=== PATIENT | male | born 1975 | race Caucasian/White ===

== ENCOUNTER 2021-03-30 05:48 | Emergency (ER) | payer MEDICAID, OTHER ==
[~2021-03-30] VITALS: Ht 185.4 cm; Wt 181.4 kg
[2021-03-30] MEDS ORDERED: ASPirin 81 mg TAB PO ONE (07:00)
[2021-03-30 07:40] LABS: Potassium 4.3 mmol/L (3.5-5.1)
[2021-03-30 07:55] LABS: Basophils # (auto) 0 10 ^3/uL (0-0.2); Basophils % (auto) 0.4 % (0.0-2.0); Eosinophils # (auto) 0 10 ^3/uL (0-0.8); Eosinophils % (auto) 0.5 % (0.0-7.0); Hematocrit 43.1 % (41.0-53.0); Hemoglobin 14.2 g/dL (13.5-17.5); Lymphocytes # (auto) 1.9 10 ^3/uL (0.4-5.4); Lymphocytes % (auto) 27.8 % (10.0-50.0); Mean Corpuscular Hemoglobin 29.5 pg (28.0-32.0); Mean Corpuscular Volume 89.3 fL (80.0-100.0); Monocytes # (auto) 0.5 10 ^3/uL (0-1.3); Monocytes % (auto) 7.6 % (0.0-12.0); Neutrophils # (auto) 4.3 10 ^3/uL (1.6-8.6); Neutrophils % (auto) 63.7 % (37.0-80.0); Nucleated Red Blood Cells % 0.1 %; Red Blood Cells 4.82 10^6/uL (4.5-5.90); Red Cell Distribution Width 13.9 % (11.8-14.3); White Blood Cell 6.7 10^3/uL (4.4-10.8)
[2021-03-30 07:56] LABS: Albumin 3.5 g/dL (3.4-5.0); BUN/Creatinine Ratio 23.8; Bilirubin, Total 0.6 mg/dL (0.2-1.0); Calcium 8.7 mg/dL (8.5-10.1); Total Protein 7.6 g/dL (6.4-8.2)
[2021-03-30 08:49] VITALS: BP 136/94
== END 2021-03-30 09:50 | disposition home or self-care (01) ==
LOC: EDBD 05:48 → ER 05:48
DX: R07.89 Other chest pain (principal); I10 Essential (primary) hypertension; E11.9 Type 2 diabetes mellitus without complications
CPT/HCPCS: 36415; 71045; 80053; 83880; 84484; 85025; 93005

== ENCOUNTER 2024-09-29 07:02 | Inpatient (IN) | payer MEDICAID ==
[~2024-09-29] VITALS: Ht 185.4 cm; Wt 150.1 kg
--- NOTE | 2024-09-29 07:18 | ED.PDOC ---
GI ASSESSMENT HPI Comments This is a 49 year old male MOSES presenting to the ED with chief complaint of abdominal pain. Patient reports that he has been experiencing diffuse abdominal pain with associated diarrhea for the past 2 months, worsening over the past 2 days. Patient relays that he has also not been able to ambulate well during these 2 days with an associated syncopal episode this morning, prompting him to call 911. Patient denies any N/V, fever, chills, dizziness, chest pain, or SOB. Time Seen by MD: 07:17 Reviewed Notes: Nurses Notes, Quality Review Trainer Notes, Medications, Allergies Allergies: Coded Allergies: NO KNOWN ALLERGIES (Unverified , 03/30/21) Information Source: Patient, Emergency Med Personnel Mode of Arrival: EMS Timing: Days Duration: Since onset Prehospital treatment: None Quality: Aching Vomitus: None Stool: Watery Severity: Moderate Recent: None Recent Hx of: None Pain Location: Diffuse Modifying Factors: Nothing Associated sign and symptoms: Diarrhea, Abdominal Pain Past Medical History PAST MEDICAL HISTORY: DM, HTN Surgical History: Denies all surgeries Family History Family History: Reviewed,noncontributory to illness Social History Smoker: Non-Smoker Alcohol: Denies ETOH Use Drugs: Denies Drug Use Lives In: Home Constitutional: denies: chills, diaphoresis, fatigue, fever, malaise, sweats, weakness, others EENTM: denies: blurred vision, double vision, ear bleeding, ear discharge, ear drainage, ear pain, ear ringing, eye pain, eye redness, hearing loss, mouth pain, mouth swelling, nasal discharge, nose bleeding, nose congestion, nose pain, photophobia, tearing, throat pain, throat swelling, voice changes, others Respiratory: denies: cough, hemoptysis, orthopnea, SOB at rest, shortness of breath, SOB with excertion, stridor, wheezing, others Cardiovascular: reports: syncope; denies: chest pain, dizzy spells, diaphor esis, Dyspnea on exertion, edema, irregular heart beat, left arm pain, lightheadedness, palpitations, PND, others Gastrointestinal: reports: abdominal pain, diarrhea; denies: abdomen distended, blood streaked bowels, constipated, dysphagia, difficulty swallowing, hematemesis, melena, nausea, poor appetite, poor fluid intake, rectal bleeding, rectal pain, vomiting, others Genitourinary: denies: burning, dysuria, flank pain, frequency, hematuria, incontinence, penile discharge, penile sore, pain, testicle pain, testicle swelling, urgency, others Neurological: denies: dizziness, fainting, headache, left sided numbness, left sided weakness, numbness, paresthesia, pre-existing deficit, right sided numbness, right sided weakness, seizure, speech problems, tingling, tremors, weakness, others Musculoskeletal: denies: back pain, gout, joint pain, joint swelling, muscle pain, muscle stiffness, neck pain, others Integumetry: denies: bruises, change in color, change in hair/nails, dryness, laceration, lesions, lumps, rash, wounds, others Allergic/Immunocompromised: denies: Difficulty Healing, Frequent Infections, Hives, Itching, others Hematologic/Lymphatic: denies: anemia, blood clots, easy bleeding, easy bruising, swollen glands, others Endocrine: denies: excessive hunger, excessive sweating, excessive thirst, excessive urination, flushing, intolerance to cold, intolerance to heat, unexplained weight gain, unexplained weight loss, others Psychiatric: denies: anxiety, bipolar disorder, depression, hopeless, panic disorder, schizophrenia, sleepless, suicidal, others All Other Systems: Reviewed and Negative Physical Exam General Appearance: Moderate Distress, Obese HEENT: Normal ENT Inspection, Pharynx Normal, TMs Normal Neck: Full Range of Motion, Non-Tender, Normal, Normal Inspection Respiratory: Chest Non-Tender, Lungs Clear, No Accessory Muscle Use, No Respiratory Distress, Normal Breath Sounds Cardiovascular: No Edema, No JVD, No Murmur, No Gallop, Normal Peripheral Pulses, Regular Rate/Rhythm Breast Exam: Deferred Gastrointestinal: No Organomegaly, Non Tender, No Pulsatile Mass, Normal Bowel Sounds, Soft Genitalia: Deferred Pelvic: Deferred Rectal: Deferred Extremities: No calf tenderness, Normal capillary refill, Normal range of motion, Non-tender, No pedal edema Musculoskeletal : Apperance: Normal Neurologic: Alert, escort vehicle driver II-XII nml as Tested, No Motor Deficits, Normal Affect, Normal Mood, No Sensory Deficits Cerebellar Function: Normal Reflexes: Normal Skin: Dry, Normal Color, Warm, Wounds (Bilateral lower extremity) Peripheral Pulses: 3+ Radial (R), 3+ Radial (L) Lymphatic: No Adenopathy Was a procedure done? Was a procedure done?: No GI differential Dx Differential Diagnosis: Constipation, Diverticular disease, Esophagitis, Gastritis/PUD, Gastroenteritis X-Ray, Labs, Meds, VS Vital Signs Date Time Temp Pulse Resp B/P (MAP) Pulse Ox O2 Delivery O2 Flow Rate FiO2 09/29/24 09:44 98 18 97 Room Air* 0 21 09/29/24 09:44 98.6 98 97 186/111 (136) 97 98.6 09/29/24 07:19 98.0 95 16 178/125 96 98.0 Lab Test 09/29/24 07:42 Range/Units White Blood Count 11.8 H 4.4-10.8 10^3/uL Red Blood Count 5.53 4.5-5.90 10^6/uL Hemoglobin 16.5 13.5-17.5 g/dL Hematocrit 48.6 41.0-53.0 % Mean Corpuscular Volume 87.9 80.0-100.0 fL Mean Corpuscular Hemoglobin 29.9 28.0-32.0 pg Mean Corpuscular Hemoglobin Concent 34.0 32.0-36.0 g/dL Red Cell Distribution Width 13.1 11.8-14.3 % Platelet Count 189 140-450 10^3/uL Mean Platelet Volume 10.3 6.9-10.8 fL Neutrophils (%) (Auto) 79.4 37.0-80.0 % Lymphocytes (%) (Auto) 14.8 10.0-50.0 % Monocytes (%) (Auto) 4.7 0.0-12.0 % Eosinophils (%) (Auto) 0.4 0.0-7.0 % Basophils (%) (Auto) 0.7 0.0-2.0 % Neutrophils # (Auto) 9.4 H 1.6-8.6 10 ^3/uL Lymphocytes # (Auto) 1.8 0.4-5.4 10 ^3/uL Monocytes # (Auto) 0.6 0-1.3 10 ^3/uL Eosinophils # (Auto) 0 0-0.8 10 ^3/uL Basophils # (Auto) 0.1 0-0.2 10 ^3/uL Nucleated Red Blood Cells 0.0 % Sodium Level 139 136-145 mmol/L Potassium Level 4.1 3.5-5.1 mmol/L Chloride Level 100 98-107 mmol/L Carbon Dioxide Level 29 20-31 mmol/L Anion Gap 10 5-15 Blood Urea Nitrogen 12 9-23 mg/dL Creatinine 0.79 0.700-1.30 mg/dL Glomerular Filtration Rate Calc 110 >90 mL/min BUN/Creatinine Ratio 15.2 10.0-20.0 Serum Glucose 159 H 74-106 mg/dL Calcium Level 9.9 8.7-10.4 mg/dL Current Medications Medications (Trade) Dose Ordered Sig/Gavin Route Start Time Stop Time Status Last Admin Sodium Chloride 1,000 ml @ 1,000 mls/hr Q1H ONCE IV 09/29/24 07:15 09/29/24 08:14 DC 09/29/24 09:35 Ketorolac Tromethamine (Toradol Injection) 30 mg ONCE ONCE IV 09/29/24 07:15 09/29/24 07:16 DC 09/29/24 09:37 Ondansetron HCl (Zofran) 4 mg ONCE ONCE IV 09/29/24 07:15 09/29/24 07:16 DC 09/29/24 09:37 Ceftriaxone Sodium 50 ml @ 100 mls/hr ONCE ONCE IV 09/29/24 08:30 09/29/24 08:59 DC 09/29/24 09:37 Patient alert. Morbidly obese. WBC slightly elevated. Vitals stable. Abdomen is soft nontender. Bilateral lower extremity redness. Hemoglobin within normal limits. Establish intravenous access. Was given fluids. He will be admitted for cellulitis. Was given Rocephin. Was given clindamycin. Explained to the patient. Continue to monitor. Blood pressure was high. Was given clonidine. Time of 1ST Reevaluation: 08:16 Reevaluation 1ST: Unchanged Patient Education/Counseling: Diagnosis, Treatment Family Education/Counseling: No Family Present SEPSIS Sepsis Screen Vital Signs Date Time Temp Pulse Resp B/P (MAP) Pulse Ox O2 Delivery O2 Flow Rate FiO2 09/29/24 09:44 98 18 97 Room Air* 0 21 09/29/24 09:44 98.6 98 97 186/111 (136) 97 98.6 09/29/24 07:19 98.0 95 16 178/125 96 98.0 Laboratory Tests Test 09/29/24 07:42 White Blood Count 11.8 10^3/uL (4.4-10.8) H Medications Medications Dose Ordered Sig/Gavin Route Start Time Stop Time Status Last Admin Dose Admin Ceftriaxone Sodium 50 ml @ 100 mls/hr ONCE ONCE IV 09/29/24 08:30 09/29/24 08:59 DC 09/29/24 09:37 Ketorolac Tromethamine 30 mg ONCE ONCE IV 09/29/24 07:15 09/29/24 07:16 DC 09/29/24 09:37 Ondansetron HCl 4 mg ONCE ONCE IV 09/29/24 07:15 09/29/24 07:16 DC 09/29/24 09:37 Sodium Chloride 1,000 ml @ 1,000 mls/hr Q1H ONCE IV 09/29/24 07:15 09/29/24 08:14 DC 09/29/24 09:35 Departure 1 Departure Time of Disposition: 07:57 Impression: Primary Impression: Cellulitis Qualified Codes: L03.119 - Cellulitis of unspecified part of limb Additional Impressions: Hypertensive urgency Uncontrolled diabetes mellitus Qualified Codes: E13.65 - Other specified diabetes mellitus with hyperglycemia Disposition: ADMITTED INPATIENT Admit to: Med Surg Condition: Guarded Critical Care Note Critical Care Time?: No Stability Stability form required: No Heart Score Heart Score: Heart Score Response (Comments) Value History N/A 0 EKG N/A 0 Age N/A 0 Risk Factors N/A 0 Troponin N/A 0 Total 0 I personally scribed for URIEL MOURA MD ([email or web address]) on 09/29/24 at 07:18. Electronically submitted by Kaushal Roche ([email or web address]). URIEL MOURA MD Sep 29, 2024 07:18
[2024-09-29 07:54] LABS: Hematocrit 48.6 % (41.0-53.0); Hemoglobin 16.5 g/dL (13.5-17.5); Mean Corpuscular Hemoglobin 29.9 pg (28.0-32.0); Mean Corpuscular Volume 87.9 fL (80.0-100.0); Nucleated Red Blood Cells % 0.0 %
[2024-09-29 08:03] LABS: Carbon Dioxide 29 mmol/L (20-31)
[2024-09-29 08:04] LABS: Calcium 9.9 mg/dL (8.7-10.4)
[2024-09-29 08:08] LABS: BUN/Creatinine Ratio 15.2 (10.0-20.0); Blood Urea Nitrogen 12 mg/dL (9-23)
[2024-09-29 08:09] LABS: Anion Gap 10 (5-15); Chloride 100 mmol/L (98-107); Potassium 4.1 mmol/L (3.5-5.1); Sodium 139 mmol/L (136-145)
[2024-09-29 08:11] LABS: Glucose 159 mg/dL (74-106)
[2024-09-29] MEDS: SODIUM CHLORIDE 0.9% 1,000 ML IV ONE (09:35)
[2024-09-29] MEDS: ONDANSETRON HCL 4 MG/2 ML VIAL IV ONE (09:37)
[2024-09-29] MEDS: KETOROLAC TROMETH 30 MG/ML 1ML VIAL IV ONE (09:37)
[2024-09-29] MEDS: cefTRIAXone 1GM/50ML D5W 50 ML IV ONE (09:37)
[2024-09-29 09:44] VITALS: PULSE 98; RESP 18; O2SAT 97
[2024-09-29] MEDS: CLINDAMYCIN 600MG IV 50 ML IV ONE (11:14)
[2024-09-29] MEDS ORDERED: HYDROcodone-ACET 5/325MG TAB PO PRN (11:45)
[2024-09-29] MEDS ORDERED: NITROGLYCERIN 0.4 MG SL TAB SL PRN ×2 (11:45→14:45)
[2024-09-29] MEDS ORDERED: DOCUSATE SOD 100 MG CAP PO PRN ×2 (11:45→14:45)
[2024-09-29] MEDS ORDERED: ACETAMINOPHEN 325 MG TAB PO PRN ×2 (11:45→14:45)
[2024-09-29] MEDS ORDERED: DEXTROSE (50%) 50ML SYRG IV PRN ×2 (11:45→14:45)
[2024-09-29] MEDS ORDERED: ONDANSETRON HCL 4 MG/2 ML VIAL IV PRN (11:45)
[2024-09-29] MEDS ORDERED: MORPHINE SULFATE INJ 2 MG/ml SYRG IV PRN (11:45)
[2024-09-29] MEDS ORDERED: LISINOPRIL 5 MG TAB PO ONE (12:30)
--- NOTE | 2024-09-29 12:38 | DVHHP2 ---
History of Present Illness Reason for Visit: syncopal event History of Present Illness Stefano Crystal is a 49-year-old male with past medical history of hypertension and diabetes who is currently not taking any home medications, who came to the hospital with multiple complaints. He states had a fall a few months back, and sense then his health has been declining. He states he is losing the use of his hands, and states he has no strength in his hands. That he has had nausea for 2 weeks, and diarrhea for 1-2 months that is making him weak and caused the syncopal event he had this morning. Cardiovascular: HTN Endocrine: Diabetes Past Surgical History: None Smoke: No ALCOHOL: none Drugs: Marijuana Lives: with Family Domestic Violence: Neg Review of Systems Constitutional: No: Fever, Chills, Sweats, Weakness, Malaise, Other Eyes: No: Pain, Vision change, Conjunctivae inflammation, Eyelid inflammation, Other, Redness ENT: No: Ear pain, Ear discharge, Nose pain, Nose discharge, Nose congestion, Mouth pain, Mouth swelling, Throat pain, Throat swelling, Other Respiratory: No: Cough, Dry, Shortness of breath, SOB with excertion, Wheezing, Hemoptysis, Pleuritic Pain, Sputum, Wheezing, Other Cardiovascular: Edema (right leg); No: Chest Pain, Palpitations, Orthopnea, Paroxysmal Noc. Dyspnea, Lt Headedness, Other Gastrointestinal: Diarrhea; No: Nausea, Vomiting, Abdominal Pain, Constipation, Melena, Hematochezia, Other Genitourinary: No Dysuria, No Frequency, No Incontinence, No Hematuria, No Retention, No Other Musculoskeletal: No: other, neck pain, shoulder pain, arm pain, back pain, hand pain, leg pain, foot pain Skin: Lesions (open wound to bottom of right foot, cellulitis of right leg); No: Rash, Jaundice, Bruising, Other Neurological: Other (syncopal event ); No: Weakness, Numbness, Incoordination, Change in speech, Confusion, Seizures Allergies: Coded Allergies: NO KNOWN ALLERGIES (Unverified , 03/30/21) Exam Vital Signs Vital Signs Date Time Temp Pulse Resp B/P (MAP) Pulse Ox O2 Delivery O2 Flow Rate FiO2 09/29/24 09:51 186/111 09/29/24 09:44 98 18 97 Room Air* 0 21 09/29/24 09:44 98.6 98.6 General Appearance: Alert, Oriented X3, Cooperative, mild distress HEENT: Atraumatic, PERRLA, Mucous membr. moist/pink Respiratory: Clear to auscultation, Normal air movement Cardiovascular: Regular rate, Normal S1, Normal S2 Abdominal: Normal bowel sounds, Soft, Other (diarrhea) Extremities: No clubbing, No cyanosis, No edema Skin: No significant lesion (open wound to bottom of right foot, cellulitis of right leg) Neuro: Normal speech Psych/Mental Status: Mental status NL, Mood NL Labs/Xrays Labs Test 09/29/24 07:42 Range/Units White Blood Count 11.8 H 4.4-10.8 10^3/uL Red Blood Count 5.53 4.5-5.90 10^6/uL Hemoglobin 16.5 13.5-17.5 g/dL Hematocrit 48.6 41.0-53.0 % Mean Corpuscular Volume 87.9 80.0-100.0 fL Mean Corpuscular Hemoglobin 29.9 28.0-32.0 pg Mean Corpuscular Hemoglobin Concent 34.0 32.0-36.0 g/dL Red Cell Distribution Width 13.1 11.8-14.3 % Platelet Count 189 140-450 10^3/uL Mean Platelet Volume 10.3 6.9-10.8 fL Neutrophils (%) (Auto) 79.4 37.0-80.0 % Lymphocytes (%) (Auto) 14.8 10.0-50.0 % Monocytes (%) (Auto) 4.7 0.0-12.0 % Eosinophils (%) (Auto) 0.4 0.0-7.0 % Basophils (%) (Auto) 0.7 0.0-2.0 % Neutrophils # (Auto) 9.4 H 1.6-8.6 10 ^3/uL Lymphocytes # (Auto) 1.8 0.4-5.4 10 ^3/uL Monocytes # (Auto) 0.6 0-1.3 10 ^3/uL Eosinophils # (Auto) 0 0-0.8 10 ^3/uL Basophils # (Auto) 0.1 0-0.2 10 ^3/uL Nucleated Red Blood Cells 0.0 % Sodium Level 139 136-145 mmol/L Potassium Level 4.1 3.5-5.1 mmol/L Chloride Level 100 98-107 mmol/L Carbon Dioxide Level 29 20-31 mmol/L Anion Gap 10 5-15 Blood Urea Nitrogen 12 9-23 mg/dL Creatinine 0.79 0.700-1.30 mg/dL Glomerular Filtration Rate Calc 110 >90 mL/min BUN/Creatinine Ratio 15.2 10.0-20.0 Serum Glucose 159 H 74-106 mg/dL Calcium Level 9.9 8.7-10.4 mg/dL Carotid Duplex RIGHT SIDE: The peak systolic velocities are 74 cm/s in the CCA, 57 cm/s in the ICA. The ICA/CCA ratio is 0.8. The external carotid artery is patent with peak systolic velocity of 66 cm/s proximally. There is appropriate antegrade flow in the right vertebral artery. LEFT SIDE: The peak systolic velocities are 96 cm/s in the CCA, 78 cm/s in the ICA. The ICA/CCA ratio is 0.8. The external carotid artery is patent with peak systolic velocity of 79 cm/s proximally. There is appropriate antegrade flow in the left vertebral artery. IMPRESSION: No hemodynamically significant stenosis noted in the right carotid system. No hemodynamically significant stenosis noted in the left carotid system. EXAM: CT HEAD WITHOUT CONTRAST FINDINGS: There is no evidence of acute intracranial hemorrhage, extra-axial collection, mass effect, midline shift, herniation or hydrocephalus. The ventricles, sulci and cisterns are age appropriate. The ferrera-white differentiation is intact. The visualized paranasal sinuses and mastoid air cells are clear. No depressed calvarial fracture. The surrounding soft tissues are unremarkable. IMPRESSION: 1. No evidence of acute intracranial abnormality. SEPSIS Sepsis Screen Date sepsis recognized/suspect: Sep 29, 2024 Time Sepsis recognized/suspect: 939 Recent Procedure: No On Antibiotic Therapy: No Respiratory Rate >20: No Heart Rate >90: No Temp<36 C (96.8 F) or >38.3 C: No SBP <90 or MAP <65 mmHG: No New Acute Mental Status Change: No Is the patient on CPAP, BIPAP,: No Physician Orders Admit (09/29/24 11:40) Code Status (09/29/24 11:40) 2 Gm Sodium Diet (09/29/24 Lunch) Hydrocodone-Acet 5/325mg Tab ([place] (09/29/24 11:45) Ondansetron Hcl (Zofran) (09/29/24 11:45) Docusate Sodium Capsule (Colace Capsule) (09/29/24 11:45) Complete Blood Count (09/30/24 04:00) Comprehensive Metabolic Panel (09/30/24 04:00) Echo 2d Mode Cardiac Dop (09/29/24 11:40) Carotid Duplx W Color Dop (09/29/24 11:40) Condition: Serious (09/29/24 11:40) Acetaminophen Tablet (Tylenol Tablet) (09/29/24 11:45) Nitroglycerin Sublingual (Ntrostat Subli (09/29/24 11:45) Morphine Sulfate Injection (09/29/24 11:45) Stat Ekg For Chest Pain (09/29/24 11:40) Notify Md Of Changes From Base (09/29/24 11:40) Mixer And Scaler For 24 Hours (09/29/24 11:40) Emergency Dysrhythmia Protocol (09/29/24 11:40) Rhythm Strips Once Every Shift (09/29/24 11:40) Oxygen By Nasal Cannula (09/29/24 11:40) Glucose Blood (Accu-Chek Comfort Curve T (09/29/24 17:00) Bedtime Insulin Scale (09/29/24 22:00) Moderate Insulin Ss (09/29/24 17:00) Dextrose 50% Syringe (09/29/24 11:45) Vital Signs Date Time Temp Pulse Resp B/P (MAP) Pulse Ox O2 Delivery O2 Flow Rate FiO2 09/29/24 09:51 186/111 09/29/24 09:44 98 18 97 Room Air* 0 21 09/29/24 09:44 98.6 98 97 186/111 (136) 97 98.6 09/29/24 07:19 98.0 95 16 178/125 96 98.0 Laboratory Tests Test 09/29/24 07:42 White Blood Count 11.8 10^3/uL (4.4-10.8) H Medications Medications Dose Ordered Sig/Gavin Route Start Time Stop Time Status Last Admin Dose Admin Ceftriaxone Sodium 50 ml @ 100 mls/hr ONCE ONCE IV 09/29/24 08:30 09/29/24 08:59 DC 09/29/24 09:37 100 MLS/HR Clindamycin Phosphate 50 ml @ 50 mls/hr ONCE ONCE IV 09/29/24 08:30 09/29/24 09:29 DC 09/29/24 11:14 50 MLS/HR Clonidine HCl 0.2 mg ONCE ONCE PO 09/29/24 09:45 09/29/24 09:46 DC 09/29/24 09:51 0.2 MG Ketorolac Tromethamine 30 mg ONCE ONCE IV 09/29/24 07:15 09/29/24 07:16 DC 09/29/24 09:37 30 MG Ondansetron HCl 4 mg ONCE ONCE IV 09/29/24 07:15 09/29/24 07:16 DC 09/29/24 09:37 4 MG Sodium Chloride 1,000 ml @ 1,000 mls/hr Q1H ONCE IV 09/29/24 07:15 09/29/24 08:14 DC 09/29/24 09:35 1,000 MLS/HR Assessment/Plan Assessment/Plan Assessment: Cellulitis of right leg, Syncopal event, Open wound to right foot, Leukocytosis, Diabetes, Hypertension, Plan: Admit to Tele, IV antibiotics, Wound consult, Wound culture, ECHO, Carotid Doppler, CT head, Neurology consult, Consider cardiology consult, Accu checks Q AC&HS with sliding scale, Plan discussed with: Patient 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 Procedure Category Date Status Time Admit ADMIT 09/29/24 Verified 11:40 Code Status CODE 09/29/24 Verified 11:40 2 Gm Sodium Diet DIET 09/29/24 Verified Lunch Hydrocodone-Acet PHA 09/29/24 Verified 5/325mg Tab ([place] 11:45 Ondansetron Hcl PHA 09/29/24 Verified (Zofran) 11:45 Docusate Sodium PHA 09/29/24 Verified Capsule (Colace 11:45 Complete Blood Count LAB 09/30/24 Verified 04:00 Comprehensive LAB 09/30/24 Verified Metabolic Panel 04:00 Echo 2d Mode Cardiac US 09/29/24 Verified DOP 11:40 Carotid Duplx W Color US 09/29/24 Verified DOP 11:40 Condition: Serious PIO 09/29/24 Verified 11:40 Acetaminophen Tablet PHA 09/29/24 Verified (Tylenol Tablet) 11:45 Nitroglycerin PHA 09/29/24 Verified Sublingual (Ntrostat 11:45 Morphine Sulfate [facility] 09/29/24 Verified Injection 11:45 Stat Ekg For Chest [facility] 09/29/24 Verified Pain 11:40 Notify Md Of Changes [facility] 09/29/24 Verified From Base 11:40 Mixer And Scaler For [facility] 09/29/24 Verified 24 Hours 11:40 Emergency Dysrhythmia [facility] 09/29/24 Verified Protocol 11:40 Rhythm Strips Once [facility] 09/29/24 Verified Every Shift 11:40 Oxygen By Nasal 09/29/24 Verified Cannula 11:40 Glucose Blood [facility] 09/29/24 Verified (Accu-Chek Comfort 17:00 Bedtime Insulin Scale [facility] 09/29/24 Verified 22:00 Moderate Insulin Ss [facility] 09/29/24 Verified 17:00 Dextrose 50% Syringe [facility] 09/29/24 Verified 11:45 Date of Service: Sep 29, 2024 Billing Provider: ARAM GABRIEL Common Visit Codes: [id number] INP/OBS CARE (MOD) ARAM GABRIEL Sep 29, 2024 12:38
--- NOTE | 2024-09-29 12:59 | DVH ---
EXAM: CT HEAD WITHOUT CONTRAST INDICATION: syncopal event TECHNIQUE: CT of the head without intravenous contrast. Coronal and sagittal reformatted images are s ubmitted. Radiation Dose : 1. Head: CT Dose: CTDI volume is 64.81 mGy. Dose-length product is 1.71 mGy*cm The dose indicators for CT are the volume Computed Tomography (CT) Dose Index (CTDIvol) and the Dose Length Product (DLP), and are measured in units of mGy and mGy-cm, respectively. These indicators are not patient dose, but values generated from the CT scanner acquisition factors. The report includes radiation exposure data for exposures received during this examination. All CT scans at this medical facility are performed using dose modulation techniques as appropriate to a performed exam including the following: Automated exposure control was utilized; adjustment of the MA and/or KV according to patient size; and use of iterative reconstruction technique. COMPARISON: None FINDINGS: There is no evidence of acute intracranial hemorrhage, extra-axial collection, mass effect, midline s hift, herniation or hydrocephalus. The ventricles, sulci and cisterns are age appropriate. The ferrera-white differentiation is intact. The visualized paranasal sinuses and mastoid air cells are clear. No depressed calvarial fracture. The surrounding soft tissues are unremarkable. IMPRESSION: 1. No evidence of acute intracranial abnormality.
--- NOTE | 2024-09-29 13:13 | DVH ---
Carotid Duplex Clinical History: syncopal event Comparison: None Technique: Duplex Doppler evaluation of the extracranial carotid and vertebral arteries including color Doppler and spectral/pulsed waveform analysis was performed. Findings: RIGHT SIDE: The peak systolic velocities are 74 cm/s in the CCA, 57 cm/s in the ICA. The ICA/CCA ratio is 0.8. The external carotid artery is patent with peak systolic velocity of 66 cm/s proximally. There is appropriate antegrade flow in the right vertebral artery. LEFT SIDE: The peak systolic velocities are 96 cm/s in the CCA, 78 cm/s in the ICA. The ICA/CCA ratio is 0.8. The external carotid artery is patent with peak systolic velocity of 79 cm/s proximally. There is appropriate antegrade flow in the left vertebral artery. IMPRESSION: No hemodynamically significant stenosis noted in the right carotid system. No hemodynamically significant stenosis noted in the left carotid system. Reference: Radiology 2003; 229:[id number] Normal ICA PSV is <125 cm/sec and no plaque or intimal thickening is visible sonographically addition al criteria include ICA/CCA PSV ratio <2.0 and ICA EDV <40 cm/sec <50% ICA stenosis ICA PSV is <125 cm/sec and plaque or intimal thickening is visible sonographically additional criteria include ICA/CCA PSV ratio <2.0 and ICA EDV <40 cm/sec 50-69% ICA stenosis ICA PSV is 125-230 cm/sec and plaque is visible sonographically additional criter ia include ICA/CCA PSV ratio of 2.0-4.0 and ICA EDV of 40-100 cm/sec 70% ICA stenosis but less than near occlusion ICA PSV is >230 cm/sec and visible plaque and luminal narrowing are seen at ferrera-scale and color Doppler ultrasound (the higher the Doppler parameters lie above the threshold of 230 cm/sec, the greater the likelihood of severe disease) additional criteria include ICA/CCA PSV ratio >4 and ICA EDV >100 cm/sec
[2024-09-29] MEDS: LISINOPRIL 5 MG TAB PO ONE (13:55)
[2024-09-29] MEDS ORDERED: CLINDAMYCIN 600MG IV 50 ML IV SCH (14:00)
[2024-09-29] MEDS: CLINDAMYCIN 600MG IV 50 ML IV SCH (14:15)
[2024-09-29] MEDS: ONDANSETRON HCL 4 MG/2 ML VIAL IV PRN (14:41)
[2024-09-29] MEDS: HYDROcodone-ACET 5/325MG TAB PO PRN (14:42)
[2024-09-29] MEDS ORDERED: InsuLIN REG 1unit/0.01ml Soln (100units/ml) SC SCH ×2 (17:00→22:00)
[2024-09-29] MEDS: ACCU-CHEK COMFORT CURVE STRIP VI SCH (17:00)
[2024-09-29] MEDS ORDERED: ACCU-CHEK COMFORT CURVE STRIP VI SCH (17:00)
[2024-09-29 17:52] VITALS: BP 128/83; PULSE 86; O2SAT 95
[2024-09-29] MEDS: InsuLIN REG 1unit/0.01ml Soln (100units/ml) SC SCH ×2 (18:02→22:00)
[2024-09-29 19:00] VITALS: BP 179/106; RESP 19
[2024-09-29] MEDS: LOPERAMIDE 1 mg/7.5ml ORAL soln PO PRN (23:46)
[2024-09-29 23:50] VITALS: BP 148/108; PULSE 101; RESP 18; TEMP 97.6; O2SAT 95
[2024-09-29] MEDS ORDERED: GABA-1250 PO (23:53)
[2024-09-30] VITALS (7 sets, daily range): BP systolic 127–159; BP diastolic 89–108; PULSE 85–102; RESP 18–20; TEMP 97.6–98.4; O2SAT 91–95
[2024-09-30 07:54] LABS: Hematocrit 44.4 % (41.0-53.0); Hemoglobin 15.5 g/dL (13.5-17.5); Mean Corpuscular Hemoglobin 30.7 pg (28.0-32.0); Mean Corpuscular Volume 88.2 fL (80.0-100.0); Nucleated Red Blood Cells % 0.1 %
[2024-09-30 08:04] LABS: Alanine Aminotransferase 29 U/L (7-40); Alkaline Phosphatase 76 U/L (46-116); Anion Gap 11 (5-15); BUN/Creatinine Ratio 21.7 (10.0-20.0); Blood Urea Nitrogen 15 mg/dL (9-23); Carbon Dioxide 26 mmol/L (20-31); Chloride 103 mmol/L (98-107); Potassium 3.7 mmol/L (3.5-5.1); Sodium 140 mmol/L (136-145); Total Protein 6.6 g/dL (5.7-8.2)
[2024-09-30 08:05] LABS: Albumin 4.1 g/dL (3.2-4.8); Bilirubin, Total 0.9 mg/dL (0.2-1.0)
[2024-09-30 08:06] LABS: Calcium 8.7 mg/dL (8.7-10.4); Glucose 138 mg/dL (74-106)
[2024-09-30] MEDS ORDERED: cefTRIAXone 1GM/50ML D5W 50 ML IV SCH (09:00)
[2024-09-30] MEDS: cefTRIAXone 1GM/50ML D5W 50 ML IV SCH (09:18)
[2024-09-30] MEDS: LISINOPRIL 5 MG TAB PO SCH (09:20)
[2024-09-30] MEDS ORDERED: LISINOPRIL 5 MG TAB PO SCH (10:00)
--- NOTE | 2024-09-30 11:14 | DVH ---
Right lower extremity venous duplex Clinical History: R/o DVT; edema Comparison: None Findings: Duplex Doppler evaluation of the deep venous system of the right lower extremity from the common femo ral vein to the popliteal vein including color Doppler and spectral/pulsed waveform analysis was perf ormed. The common femoral vein demonstrates appropriate compressibility and waveform variability. There is compressibility/patency of the great saphenous vein at the proximal thigh. The femoral vein demonstrates appropriate compressibility and waveform variability. The deep femoral vein demonstrates appropriate compressibility and waveform variability. The popliteal vein demonstrates appropriate compressibility and waveform variability. There is normal compressibility at the tibioperoneal trunk. 7 cm right Calle's cyst. Impression: No right femoropopliteal venous thrombosis. If clinical concern/symptoms persist or worsen, short-interval follow-up study is suggested.
[2024-09-30] MEDS ORDERED: VANCOMYCIN PER PHARMACY 0 MG IV SCH (11:30)
--- NOTE | 2024-09-30 11:36 | DVHSR ---
APPROVED REPORT EXAM: Two-dimensional and M-mode echocardiogram with Doppler and color Doppler. Blood Pressure: 186/111 mmHg INDICATION Syncope RISK FACTORS Obesity: Height: 6'2", Weight: 400 DIMENSIONS LVDd4.6 (3.8-5.7cm)LA (2D)4.6 (1.9-4.0cm)Aortic Root3.9 (2.0-3.7cm) LVDs3.1 (2.5-4.0cm)LA (MM) (1.9-4.0cm)Aortic Cusp Exc2.1 (1.5-2.0cm) EF (%) 60.0 (55-70%)Rt. Atrium4.7 (1.9-4.0cm)Asc. Aorta cm IVSd1.1 (0.7-1.1cm)RV (D) (1.8-2.4cm) PWd1.2 (0.7-1.1cm) Mitral Valve MitralMitral Stenosis E wave0.76m/sMV Mean GR.mmHg A wave1.19m/sMV Peak GR.mmHg E/A ratio0.62D MVAcm2 DECEL [id number] 1/2 Timems Aortic Valve Aortic ValveAortic Stenosis V11.05m/Amanuel Mean GR.3mmHg V21.10m/Amanuel Peak GR.5mmHg LVOT Diameter2.2 (1.8-2.4cm)Doppler AVA3.63cm2 Other Information Technically limited study due to body habitus. Conclusion limited study lvef 55% RV not well seen no severe valve abnormalities noted left atrium enlarged
[2024-09-30] MEDS: VANCOMYCIN 1GM/200ML PM 250 ML IV SCH (12:47)
[2024-09-30] MEDS: MORPHINE SULFATE INJ 2 MG/ml SYRG IV PRN (12:49)
--- NOTE | 2024-09-30 14:44 | DVHPNRES ---
Progress Note Date Seen: Sep 30, 2024 Resident Creating Document: NATE MARTI RESIDENT Medical Necessity Reason Pt with a Central, PICC or Fol: No Medical Necessity Reason Patient is a 49-year-old male with prior medical history of hypertension and diabetes, for which he is nonadherent to medication, who presented to the ED with chief complaint of loss of consciousness. he states that upon standing up from bed his vision became blurry, he felt palpitations, and he fell back onto his bed hitting his head against the wall. he believes he was unconscious for about 1-2 minutes, before his on found him and called EMS. Evaluation in the ED, patient was in moderate distress and hypertensive with blood pressure of 186/111. On exam there was found to be or any redness, we suggestive of cellulitis. Initial labs show WBC 11.8, serum glucose 159, rest of WBCs and chemical panel within normal range. Head CT shows no evidence of acute intracranial abnormality. Carotid Doppler study hemodynamically significant stenosis in right or left carotid systems. Patient was given clonidine for elevated blood pressure, started on antibiotics, and was admitted for further workup and monitoring. Surgical: Denies Social: Refers daily marijuana use, denies alcohol and tobacco use, states he lives with family and feels safe Patient seen at bedside. Patient states he feels well, had no adverse events overnight. Currently refers some pain in right calf, refers redness has been present for a few months. Complains of small wound on plantar surface of right foot near the first toe, which has been present for about 2 months. Additionally refers weakness in bilateral hands and decreased sensation in both feet, which has been present for the last 6 months. Patient has been consistently hypertensive, vitals have been within normal range. Follow-up CBC is within normal range. Antibiotics have been adjusted. Due to persistence of plantar wound, right lower extremity venous duplex has been ordered and foot x- ray has been ordered to rule out possible osteomyelitis. currently pending echo. Review of Systems: Constitutional: Refers decreased appetite Denies weight loss, fever and chills. HEENT: Denies changes in vision and hearing. Respiratory: Denies shortness of breath and cough Cardiovascular: Denies chest discomfort or palpitations GI: Refers occasional constipation and diarrhea Denies abdominal distention, abdominal pain : Denies dysuria and urinary frequency. Musculoskeletal: Refers lower right leg pain Skin: Refers presence of right red rash in right calf, refers small wound on plantar surface of right foot Neurological: Refers weakness in bilateral hands, refers decreased sensation in both feet, denies dizziness headache vision or hearing problems . Objective vital signs Vital Sign Date Time Temp Pulse Resp B/P (MAP) Pulse Ox O2 Delivery O2 Flow Rate FiO2 09/30/24 12:49 88 18 159/102 09/30/24 09:00 97.9 94 97.9 09/30/24 08:00 Room Air* 0 21 Total Intake and Output 09/29/24 09/29/24 09/30/24 15:00 23:00 07:00 Intake Total 50 ml 280 ml Output Total 400 ml Balance 50 ml -120 ml medications Current Medications Medications Dose Ordered Sig/Gavin Route Start Time Stop Time Status Last Admin Dose Admin Lisinopril 10 mg DAILY PO 09/30/24 10:00 Cancel Lisinopril 10 mg DAILY PO 09/30/24 10:00 09/30/24 09:20 10 MG Acetaminophen/ Hydrocodone Bitart 1 tab Q4HP PRN PO 09/29/24 14:45 09/30/24 09:20 1 TAB Ondansetron HCl 4 mg Q4HP PRN IV 09/29/24 14:45 09/29/24 14:41 4 MG Docusate Sodium 100 mg BIDPRN PRN PO 09/29/24 14:45 Acetaminophen 650 mg Q6HP PRN PO 09/29/24 14:45 Morphine Sulfate 2 mg Q30M PRN IV 09/29/24 14:45 Diagnostic Test (Pha) 1 strip ACHS 09/29/24 17:00 09/30/24 11:23 1 STRIP Insulin Human Regular HS SC 09/29/24 22:00 Insulin Human Regular AC SC 09/29/24 17:00 09/30/24 06:39 2 UNITS Dextrose 50 ml UD PRN IV 09/29/24 14:45 Loperamide HCl 2 mg PRN PRN PO 09/29/24 16:30 09/29/24 23:46 2 MG Morphine Sulfate 2 mg Q6HPRN PRN IV 09/30/24 09:45 09/30/24 12:49 2 MG Vancomycin HCl 0 ml @ 0 mls/hr UD IV 09/30/24 11:30 Nifedipine 30 mg DAILY PO 09/30/24 14:45 UNV Examination General: Patient is comfortable, alert and oriented in person place and time. Patient following commands HEENT: Normocephalic, atraumatic, normal reactive pupils, pink conjunctiva, pink moist mucous membrane Respiratory/pulmonary: Bilateral chest expansion, Clear lungs bilaterally, vesicular murmurs present in almost all lung lares, no associated crackles or wheezes Cardiovascular: Normal RRR, normal S1 and S2 Abdomen: Obese, Abdomen nondistended, normal bowel movements, soft, no pain to palpation in any of the abdominal quadrants, no palpable masses. Extremities: Presence of erythematous rash in inner surface of right calf, warm and painful to palpation, presence of small circular ulcer on plantar surface of right foot near first toe covered by black eschar, there is no peripheral edema present at the lower extremities, normal pulse on L lower extremity, R dorsalis pedis pulse palpable. Peripheral pulses 3+ radial right, 3+ radials soft. 3+ dorsalis pedis right. 3+ dorsalis pedis left Skin: No rashes or pruritus, Neurological: Intact cranial nerves with no focal neurologic deficits, decreased sensation in bilateral feet laboratory and microbiology Laboratory Tests 09/30/24 07:03 Test 09/30/24 07:03 Range/Units Serum Glucose 138 H 74-106 mg/dL Problem List/Assessment/Plan Problem List/Assessment/Plan Assessment and plan: Cellulitis of right calf - Ceftriaxone 1 g IV daily - Vancomycin per pharmacy protocol - Morphine sulfate 2 mg IV q.6 PRN - Acetaminophen 650 mg p.o. q.6 PRN - [place] 5 mg Q 4 p.o. p.r.n. Possible diabetic right foot ulcer, rule out osteomyelitis -Pending foot Xray Type 2 diabetes mellitus with hyperglycemia, HbA1c 6.5% - SSI -Accu-cheks -Carbohydrate consistent diet Syncope, possible to autonomic dysfunction secondary to above -Orthostatic vitals Hypertension urgency -Clonidine 0.1 mg once Hypertension -Lisinopril 10 mg PO daily -Nifedipine 30 mg PO daily DVT ruled out - Right venous duplex US: No right femoral popliteal venous thrombosis. Morbid obesity, BMI 45.0 kg/m2 Marijuana use -Counseled patient on cessation of marijuana use for over 15 minutes. DVT prophylaxis: Not indicated, CRISTI score [address] Molina. Goals of care discussed with the patient for over 30 minutes, states he understands and agrees. FULL CODE. Plan discussed with: Patient My Orders My Orders Orders - NATE MARTI RESIDENT Procedure Category Date Status Time Morphine Sulfate PHA 09/30/24 In Process Injection 09:45 Drug Screen LAB 09/30/24 Logged 09:36 Rt Lower Dvt US 09/30/24 Resulted 09:39 R Foot 2 View Xray XY 09/30/24 Logged 12:22 Orthostatic Vital ORDERS 09/30/24 Transmitted Signs 12:22 Complete Blood Count LAB 10/01/24 Verified 04:00 Basic Metabolic Panel LAB 10/01/24 Verified 04:00 Nifedipine Er PHA 09/30/24 Logged (Procardia Xl 14:45 Date of Service: Sep 30, 2024 Billing Provider: EMILIANO MOLINA MD Common Visit Codes: [id number] INP/OBS CARE(HIGH) Secondary Visit Codes: [id number] CARE PLAN 30 MINUTES NATE MARTI RESIDENT Sep 30, 2024 14:44 EMILIANO MOLINA MD Oct 05, 2024 21:19
--- NOTE | 2024-09-30 15:17 | DVH ---
CLINICAL INDICATION:pain; R/o osteomyelitis TECHNIQUE: 2 radiographic views of the right feet were obtained. Comparison: None FINDINGS/IMPRESSION: There is no evidence of acute fracture or dislocation. Small plantar calcaneal enthesophyte The visualized joint space is well maintained. The alignment is anatomical. There is no radiopaque foreign body.
[2024-09-30] MEDS: LISINOPRIL 5 MG TAB PO ONE (19:31)
[2024-10-01] VITALS (7 sets, daily range): BP systolic 111–152; BP diastolic 72–97; PULSE 91–116; RESP 18–21; TEMP 97.5–98.6; O2SAT 92–94
[2024-10-01] MEDS: VANCOMYCIN 1.5GM/300ML 300 ML IV SCH (00:47)
[2024-10-01 07:34] LABS: Hematocrit 47.2 % (41.0-53.0); Hemoglobin 15.9 g/dL (13.5-17.5); Mean Corpuscular Hemoglobin 30.1 pg (28.0-32.0); Mean Corpuscular Volume 89.5 fL (80.0-100.0); Nucleated Red Blood Cells % 0.1 %
[2024-10-01 07:46] LABS: Anion Gap 14 (5-15); Carbon Dioxide 23 mmol/L (20-31); Chloride 101 mmol/L (98-107); Sodium 138 mmol/L (136-145)
[2024-10-01 07:52] LABS: BUN/Creatinine Ratio 19.1 (10.0-20.0); Blood Urea Nitrogen 13 mg/dL (9-23)
[2024-10-01 07:59] LABS: Calcium 8.6 mg/dL (8.7-10.4); Glucose 116 mg/dL (74-106); Potassium 3.4 mmol/L (3.5-5.1)
[2024-10-01] MEDS: POTASSIUM CHL 20 Meq TABLET PO ONE (09:24)
[2024-10-01] MEDS: LISINOPRIL 20 MG TAB PO SCH (09:33)
[2024-10-01] MEDS ORDERED: CLIN1CAP70 PO (12:06)
[2024-10-01] MEDS ORDERED: NIFE90TA75 PO (12:06)
[2024-10-01] MEDS ORDERED: DOXY-346 PO (12:08)
[2024-10-01] MEDS: VANCOMYCIN 1.5GM/250ML 250 ML IV SCH (13:00)
[2024-10-01] MEDS: MORPHINE SULFATE INJ 2 MG/ml SYRG IV PRN (13:38)
--- NOTE | 2024-10-01 18:36 | DVHPNRES ---
Progress Note Date Seen: Oct 01, 2024 Resident Creating Document: NATE MARTI RESIDENT Medical Necessity Reason Pt with a Central, PICC or Fol: No Medical Necessity Reason Patient is a 49-year-old male with prior medical history of hypertension and diabetes, for which he is nonadherent to medication, who presented to the ED with chief complaint of loss of consciousness. he states that upon standing up from bed his vision became blurry, he felt palpitations, and he fell back onto his bed hitting his head against the wall. he believes he was unconscious for about 1-2 minutes, before his on found him and called EMS. Evaluation in the ED, patient was in moderate distress and hypertensive with blood pressure of 186/111. On exam there was found to be or any redness, we suggestive of cellulitis. Initial labs show WBC 11.8, serum glucose 159, rest of WBCs and chemical panel within normal range. Head CT shows no evidence of acute intracranial abnormality. Carotid Doppler study hemodynamically significant stenosis in right or left carotid systems. Patient was given clonidine for elevated blood pressure, started on antibiotics, and was admitted for further workup and monitoring. further evaluation on admission Patient seen at bedside. On initial evaluation, on initial evaluation patient states he felt well, refers that overnight he had a headache and blood pressure was found to be 213/86, clonidine was administered and blood pressure regimen was adjusted. Labs significant for WBC 11.1 and potassium 3.4. Echocardiogram shows LVEF 55%, no severe valve abnormalities noted, left atrium enlarged. Right foot x-ray shows no evidence of acute fracture or dislocation, small plantar calcaneal osteophyte, no radiopaque foreign body. Patient was stable for discharge home with antibiotics, however secondary evaluation patient stated he felt unwell and has had a headache. His blood pressure was measured which showed BP of 154/105. It was decided that the patient would stay for further blood pressure control. Objective vital signs Vital Sign Date Time Temp Pulse Resp B/P (MAP) Pulse Ox O2 Delivery O2 Flow Rate FiO2 10/01/24 17:22 98.6 103 18 142/88 (106) 92 98.6 10/01/24 08:00 Room Air* 0 21 Total Intake and Output 09/30/24 09/30/24 10/01/24 15:00 23:00 07:00 Intake Total 300 ml 250 ml 900 ml Balance 300 ml 250 ml 900 ml medications Current Medications Medications Dose Ordered Sig/Gavin Route Start Time Stop Time Status Last Admin Dose Admin Lisinopril 10 mg DAILY PO 09/30/24 10:00 Cancel Acetaminophen/ Hydrocodone Bitart 1 tab Q4HP PRN PO 09/29/24 14:45 10/01/24 09:27 1 TAB Ondansetron HCl 4 mg Q4HP PRN IV 09/29/24 14:45 09/30/24 15:21 4 MG Docusate Sodium 100 mg BIDPRN PRN PO 09/29/24 14:45 Acetaminophen 650 mg Q6HP PRN PO 09/29/24 14:45 Morphine Sulfate 2 mg Q30M PRN IV 09/29/24 14:45 10/01/24 13:38 2 MG Diagnostic Test (Pha) 1 strip ACHS 09/29/24 17:00 10/01/24 06:00 1 STRIP Insulin Human Regular HS SC 09/29/24 22:00 Insulin Human Regular AC SC 09/29/24 17:00 10/01/24 17:17 2 UNITS Dextrose 50 ml UD PRN IV 09/29/24 14:45 Loperamide HCl 2 mg PRN PRN PO 09/29/24 16:30 10/01/24 10:51 2 MG Morphine Sulfate 2 mg Q6HPRN PRN IV 09/30/24 09:45 10/01/24 07:03 2 MG Vancomycin HCl 0 ml @ 0 mls/hr UD IV 09/30/24 11:30 Clonidine HCl 0.1 mg Q4HP PRN PO 09/30/24 22:00 Nifedipine 90 mg DAILY PO 10/01/24 10:00 10/01/24 09:25 90 MG Lisinopril 20 mg DAILY PO 10/01/24 10:00 10/01/24 09:33 20 MG Vancomycin HCl 250 ml @ 166.667 mls/hr Q12H IV 10/01/24 13:00 10/01/24 13:00 166.667 MLS/HR Examination General: Patient is comfortable, alert and oriented in person place and time. Patient following commands HEENT: Normocephalic, atraumatic, normal reactive pupils, pink conjunctiva, pink moist mucous membrane Respiratory/pulmonary: Bilateral chest expansion, Clear lungs bilaterally, vesicular murmurs present in almost all lung lares, no associated crackles or wheezes Cardiovascular: Normal RRR, normal S1 and S2 Abdomen: Obese, Abdomen nondistended, normal bowel movements, soft, no pain to palpation in any of the abdominal quadrants, no palpable masses. Extremities: Presence of erythematous rash in inner surface of right calf, warm and painful to palpation, presence of small circular ulcer on plantar surface of right foot near first toe covered by black eschar, there is no peripheral edema present at the lower extremities, normal pulse on L lower extremity, R dorsalis pedis pulse palpable. Peripheral pulses 3+ radial right, 3+ radials soft. 3+ dorsalis pedis right. 3+ dorsalis pedis left Skin: No rashes or pruritus, Neurological: Intact cranial nerves with no focal neurologic deficits, decreased sensation in bilateral feet laboratory and microbiology Laboratory Tests 10/01/24 05:17 Test 10/01/24 05:17 Range/Units Serum Glucose 116 H 74-106 mg/dL Problem List/Assessment/Plan Problem List/Assessment/Plan Assessment and plan: Cellulitis of right calf - Ceftriaxone 1 g IV daily - Vancomycin per pharmacy protocol - Morphine sulfate 2 mg IV q.6 PRN - Acetaminophen 650 mg p.o. q.6 PRN - [place] 5 mg Q 4 p.o. p.r.n. Possible diabetic right foot ulcer, ruled out osteomyelitis -Right foot xray: There is no evidence of acute fracture or dislocation. Small plantar calcaneal enthesophyte. The visualized joint space is well maintained. The alignment is anatomical. There is no radiopaque foreign body. Type 2 diabetes mellitus, HbA1c 6.5% - SSI -Accu-cheks -Carbohydrate consistent diet Syncope, possible to autonomic dysfunction secondary to above -Orthostatic vitals, per nurse unable to carry out due to patient's inability to from the bed Hypertension urgency -Clonidine 0.1 mg once Hypertension -Lisinopril 10 mg PO daily -Nifedipine 30 mg PO daily, discontinued -Nifedipine 90 mg PO daily Hypokalemia, 3.4 -Potassium 40 mEq PO once DVT ruled out - Right venous duplex US: No right femoral popliteal venous thrombosis. DVT prophylaxis: Lovenox 40 mg SC daily Case discussed with Dr. Molina. Goals of care discussed with the patient for over 30 minutes, states he understands and agrees. FULL CODE. Plan discussed with: Patient My Orders My Orders Orders - NATE MARTI RESIDENT Procedure Category Date Status Time Enoxaparin Sodium PHA 10/01/24 Verified (Lovenox) 18:45 Date of Service: Oct 01, 2024 Billing Provider: EMILIANO MOLINA MD Common Visit Codes: [id number] INP/OBS CARE(HIGH) NATE MARTI RESIDENT Oct 01, 2024 18:36 EMILIANO MOLINA MD Oct 05, 2024 21:20
[2024-10-01] MEDS: ENOXAPARIN SOD 40 MG/0.4 ML SYRINGE SC SCH (22:14)
[2024-10-02 01:00] VITALS: BP 156/94; PULSE 110; RESP 21; TEMP 98.4; O2SAT 93
[2024-10-02 05:00] VITALS: BP 130/81; PULSE 102; RESP 21; TEMP 97.4; O2SAT 93
[2024-10-02 08:00] VITALS: PULSE 108; RESP 18; O2SAT 94
[2024-10-02 08:34] LABS: Anion Gap 13 (5-15); Carbon Dioxide 21 mmol/L (20-31); Chloride 103 mmol/L (98-107); Potassium 3.8 mmol/L (3.5-5.1); Sodium 137 mmol/L (136-145)
[2024-10-02 08:35] LABS: Calcium 9.2 mg/dL (8.7-10.4)
[2024-10-02 08:40] LABS: BUN/Creatinine Ratio 17.2 (10.0-20.0); Blood Urea Nitrogen 10 mg/dL (9-23)
[2024-10-02 08:41] LABS: Hematocrit 52.5 % (41.0-53.0); Hemoglobin 18.1 g/dL (13.5-17.5); Mean Corpuscular Hemoglobin 30.6 pg (28.0-32.0); Mean Corpuscular Volume 88.9 fL (80.0-100.0); Nucleated Red Blood Cells % 0.4 %
[2024-10-02 08:42] LABS: Glucose 134 mg/dL (74-106)
[2024-10-02 09:00] VITALS: BP 146/88; PULSE 108; RESP 20; TEMP 98.1; O2SAT 95
[2024-10-02] MEDS: LISINOPRIL 20 MG TAB PO SCH (10:08)
[2024-10-02 13:00] VITALS: BP 144/100; PULSE 108; RESP 20; TEMP 97.8; O2SAT 95
[2024-10-02] MEDS: VANCOMYCIN 1.5GM/250ML 250 ML IV SCH (13:00)
--- NOTE | 2024-10-02 19:28 | DVHDSRES ---
Discharge Summary Date of Admission Resident Creating Document: NATE MARTI RESIDENT Sep 29, 2024 at 11:40 Date of Discharge: Oct 02, 2024 Admitting Diagnosis Syncope Labs/Diagnostic Data: Laboratory Results Test 10/02/24 11:39 10/02/24 07:38 10/02/24 00:48 09/30/24 07:04 POC Glucose 160 mg/dl (70-106) White Blood Count 15.5 10^3/uL (4.4-10.8) Red Blood Count 5.91 10^6/uL (4.5-5.90) Hemoglobin 18.1 g/dL (13.5-17.5) Hematocrit 52.5 % (41.0-53.0) Mean Corpuscular Volume 88.9 fL (80.0-100.0) Mean Corpuscular Hemoglobin 30.6 pg (28.0-32.0) Mean Corpuscular Hemoglobin Concent 34.4 g/dL (32.0-36.0) Red Cell Distribution Width 13.4 % (11.8-14.3) Platelet Count 162 10^3/uL (140-450) Mean Platelet Volume 10.9 fL (6.9-10.8) Neutrophils (%) (Auto) 78.0 % (37.0-80.0) Lymphocytes (%) (Auto) 13.3 % (10.0-50.0) Monocytes (%) (Auto) 7.5 % (0.0-12.0) Eosinophils (%) (Auto) 0.8 % (0.0-7.0) Basophils (%) (Auto) 0.4 % (0.0-2.0) Neutrophils # (Auto) 12.1 10 ^3/uL (1.6-8.6) Lymphocytes # (Auto) 2.1 10 ^3/uL (0.4-5.4) Monocytes # (Auto) 1.2 10 ^3/uL (0-1.3) Eosinophils # (Auto) 0.1 10 ^3/uL (0-0.8) Basophils # (Auto) 0.1 10 ^3/uL (0-0.2) Nucleated Red Blood Cells 0.4 % Platelet Estimate Adequate Sodium Level 137 mmol/L (136-145) Potassium Level 3.8 mmol/L (3.5-5.1) Chloride Level 103 mmol/L (98-107) Carbon Dioxide Level 21 mmol/L (20-31) Anion Gap 13 (5-15) Blood Urea Nitrogen 10 mg/dL (9-23) Creatinine 0.58 mg/dL (0.700-1.30) Glomerular Filtration Rate Calc 121 mL/min (>90) BUN/Creatinine Ratio 17.2 (10.0-20.0) Serum Glucose 134 mg/dL (74-106) Calcium Level 9.2 mg/dL (8.7-10.4) Vancomycin Level Trough 9.6 ug/mL (5-10) Hemoglobin A1c 6.8 % A1C (<5.7) Test 09/30/24 07:03 Total Bilirubin 0.9 mg/dL (0.2-1.0) Aspartate Amino Transferase (AST) 73 U/L (13-40) Alanine Aminotransferase (ALT) 29 U/L (7-40) Alkaline Phosphatase 76 U/L (46-116) Total Protein 6.6 g/dL (5.7-8.2) Albumin 4.1 g/dL (3.2-4.8) HIV (1&2) Antibody Negative (Negative) Other Laboratory Tests 10/02/24 07:38 Brief Hx & Hospital Course: Patient is a 49-year-old male with prior medical history of hypertension and diabetes, for which he is nonadherent to medication, who presented to the ED with chief complaint of loss of consciousness. he states that upon standing up from bed his vision became blurry, he felt palpitations, and he fell back onto his bed hitting his head against the wall. he believes he was unconscious for about 1-2 minutes, before his on found him and called EMS. Evaluation in the ED, patient was in moderate distress and hypertensive with blood pressure of 186/111. On exam there was found to be or any redness, we suggestive of cellulitis. Initial labs show WBC 11.8, serum glucose 159, rest of WBCs and chemical panel within normal range. Head CT shows no evidence of acute intracranial abnormality. Carotid Doppler study hemodynamically significant stenosis in right or left carotid systems. Patient was given clonidine for elevated blood pressure, started on antibiotics, and was admitted for further workup and monitoring. further evaluation on admission. on evaluation after admission, patient referred presence of presence of pain and redness in right calf, small nonhealing wound on plantar surface of right foot, decreased bilateral hand and foot sensation. Additionally patient was persistently hypertensive. Patient was started on IV antibiotics due suspicion of cellulitis, Pressure regimen, and sliding scale insulin. right foot x-ray was ordered showed no evidence of acute fracture or dislocation, small plantar calcaneal osteophyte, no radio-opaque foreign body, ruled out osteomyelitis. Echocardiogram showed LVEF 5%, no severe valve abnormalities, left atrium enlarged. patient continued to have spikes of his blood pressure, which required more adjustment of blood pressure medication. patient progressed favorably, evaluation today he stated that he felt better pain in his legs had decreased. was evaluated by PT, the patient was able to walk. Patient requested home walker, request has been sent to [facility]. follow-up labs showed leukocytosis, however the patient is considered stable for discharge home with antibiotics and new blood pressure regimen. He is recommended to follow up with his PCP at his earliest convenience. All medications and recommendations have been thoroughly explained. Patient states he understands and agrees. General: Patient is comfortable, alert and oriented in person place and time. Patient following commands HEENT: Normocephalic, atraumatic, normal reactive pupils, pink conjunctiva, pink moist mucous membrane Respiratory/pulmonary: Bilateral chest expansion, Clear lungs bilaterally, vesicular murmurs present in almost all lung lares, no associated crackles or wheezes Cardiovascular: Normal RRR, normal S1 and S2 Abdomen: Obese, Abdomen nondistended, normal bowel movements, soft, no pain to palpation in any of the abdominal quadrants, no palpable masses. Extremities: Presence of erythematous rash in inner surface of right calf, decreased pain, presence of small circular ulcer on plantar surface of right foot near first toe covered by black eschar, there is no peripheral edema present at the lower extremities, normal pulse on L lower extremity, R dorsalis pedis pulse palpable. Peripheral pulses 3+ radial right, 3+ radials soft. 3+ dorsalis pedis right. 3+ dorsalis pedis left Skin: No rashes or pruritus, Neurological: Intact cranial nerves with no focal neurologic deficits, decreased sensation in bilateral feet Case discussed with Dr. Molina. Goals of care discussed with the patient for over 30 minutes. Operations or Procedures ROCEDURE(s): CARCL - CAROTID DUPLX W COLOR DOP REASON: syncopal event ORDER NUMBER(s): [id number], ACCESSION NUMBER(s): [id number] Carotid Duplex Clinical History: syncopal event Comparison: None Technique: Duplex Doppler evaluation of the extracranial carotid and vertebral arteries including color Doppler and spectral/pulsed waveform analysis was performed. Findings: RIGHT SIDE: The peak systolic velocities are 74 cm/s in the CCA, 57 cm/s in the ICA. The ICA/CCA ratio is 0.8. The external carotid artery is patent with peak systolic velocity of 66 cm/s proximally. There is appropriate antegrade flow in the right vertebral artery. LEFT SIDE: The peak systolic velocities are 96 cm/s in the CCA, 78 cm/s in the ICA. The ICA/CCA ratio is 0.8. The external carotid artery is patent with peak systolic velocity of 79 cm/s proximally. There is appropriate antegrade flow in the left vertebral artery. IMPRESSION: No hemodynamically significant stenosis noted in the right carotid system. No hemodynamically significant stenosis noted in the left carotid system. Reference: Radiology 2003; 229:[id number] Normal ICA PSV is <125 cm/sec and no plaque or intimal thickening is visible sonographically additional criteria include ICA/CCA PSV ratio <2.0 and ICA EDV <40 cm/sec <50% ICA stenosis ICA PSV is <125 cm/sec and plaque or intimal thickening is visible sonographically additional criteria include ICA/CCA PSV ratio <2.0 and ICA EDV <40 cm/sec 50-69% ICA stenosis ICA PSV is 125-230 cm/sec and plaque is visible sonographically additional criteria include ICA/CCA PSV ratio of 2.0-4.0 and ICA EDV of 40-100 cm/sec 70% ICA stenosis but less than near occlusion ICA PSV is >230 cm/sec and visible plaque and luminal narrowing are seen at ferrera-scale and color Doppler ultrasound (the higher the Doppler parameters lie above the threshold of 230 cm/sec, the greater the likelihood of severe disease) additional criteria include ICA/CCA PSV ratio >4 and ICA EDV >100 cm/sec ROCEDURE(s): HWOCT - HEAD WITHOUT CONTRAST REASON: syncopal event ORDER NUMBER(s): [id number], ACCESSION NUMBER(s): [id number] EXAM: CT HEAD WITHOUT CONTRAST INDICATION: syncopal event TECHNIQUE: CT of the head without intravenous contrast. Coronal and sagittal reformatted images are submitted. Radiation Dose : 1. Head: CT Dose: CTDI volume is 64.81 mGy. Dose-length product is 1.71 mGy*cm The dose indicators for CT are the volume Computed Tomography (CT) Dose Index (CTDIvol) and the Dose Length Product (DLP), and are measured in units of mGy and mGy-cm, respectively. These indicators are not patient dose, but values generated from the CT scanner acquisition factors. The report includes radiation exposure data for exposures received during this examination. All CT scans at this medical facility are performed using dose modulation techniques as appropriate to a performed exam including the following: Automated exposure control was utilized; adjustment of the MA and/or KV according to patient size; and use of iterative reconstruction technique. COMPARISON: None FINDINGS: There is no evidence of acute intracranial hemorrhage, extra-axial collection, mass effect, midline shift, herniation or hydrocephalus. The ventricles, sulci and cisterns are age appropriate. The ferrera-white differentiation is intact. The visualized paranasal sinuses and mastoid air cells are clear. No depressed calvarial fracture. The surrounding soft tissues are unremarkable. IMPRESSION: 1. No evidence of acute intracranial abnormality. ROCEDURE(s): RLDVT - RT Lower DVT REASON: R/o DVT ORDER NUMBER(s): [id number], ACCESSION NUMBER(s): [id number] Right lower extremity venous duplex Clinical History: R/o DVT; edema Comparison: None Findings: Duplex Doppler evaluation of the deep venous system of the right lower extremity from the common femoral vein to the popliteal vein including color Doppler and spectral/pulsed waveform analysis was performed. The common femoral vein demonstrates appropriate compressibility and waveform variability. There is compressibility/patency of the great saphenous vein at the proximal thigh. The femoral vein demonstrates appropriate compressibility and waveform variability. The deep femoral vein demonstrates appropriate compressibility and waveform variability. The popliteal vein demonstrates appropriate compressibility and waveform variability. There is normal compressibility at the tibioperoneal trunk. 7 cm right Calle's cyst. Impression: No right femoropopliteal venous thrombosis. If clinical concern/symptoms persist or worsen, short-interval follow-up study is suggested. PROCEDURE(s): RFOT2 - R FOOT 2 VIEW XRAY REASON: R/o osteomyelitis ORDER NUMBER(s): [id number], ACCESSION NUMBER(s): [id number] CLINICAL INDICATION:pain; R/o osteomyelitis TECHNIQUE: 2 radiographic views of the right feet were obtained. Comparison: None FINDINGS/IMPRESSION: There is no evidence of acute fracture or dislocation. Small plantar calcaneal enthesophyte The visualized joint space is well maintained. The alignment is anatomical. There is no radiopaque foreign body. Condition at Discharge: Stable Final Diagnosis/Problems List Cellulitis of right calf Possible diabetic right foot ulcer, ruled out osteomyelitis Type 2 diabetes mellitus with hyperglycemia, HbA1c 6.5% Syncope, possible to autonomic dysfunction secondary to above Hypertension urgency Hypertension DVT ruled out Morbid obesity, BMI 45.0 kg/m2 Marijuana use Discharge Disposition: Home Discharge Instruct/Medications Diet: Consistent carbohydrate Activity: No Restrictions, As Tolerated Follow Up/Referral: pls follow up with pcpin 1-2 weeks pls follow up in discharge clinic Medications: nifedipine 90mg daily doxycycline 100mg bid for 7 days Gabapentin 1 tablet TID PO continue home meds Scheduled Doxycycline (Monohydrate) (Doxycycline), 100 MG PO BID Gabapentin (Gabapentin), 1 CAP PO TID, (Reported) Nifedipine (Nifedipine Er), 1 TAB PO DAILY Discharge Statement: "Patient was advised to return to the ER or call 911 if any headaches, dizziness, shortness of breath, chest pain, abdominal pain, bleeding, fevers, or worsening of medical condition. Patient was counseled about treatment plan, medications, possible side effects, patientverbalized understanding. All questions were answered to the best of my ability. This discharge took greater then 30 minutes in planning, reviewing documentation, counseling the patient, and discussing with other team members." DME: Diagnosis: Patient feels unstable walking independently due to advanced diabetes related peripehral neuropathy ASSESSMENT ASSESSMENT Assessment Cellulitis of right calf - Morphine sulfate 2 mg IV q.6 PRN - Acetaminophen 650 mg p.o. q.6 PRN - [place] 5 mg Q 4 p.o. p.r.n. Possible diabetic right foot ulcer, rule out osteomyelitis -Pending foot Xray Type 2 diabetes mellitus with hyperglycemia, HbA1c 6.5% - SSI -Accu-cheks -Carbohydrate consistent diet Syncope, possible to autonomic dysfunction secondary to above -Orthostatic vitals Hypertension urgency -Clonidine 0.1 mg once Hypertension -Lisinopril 10 mg PO daily -Nifedipine 30 mg PO daily DVT ruled out - Right venous duplex US: No right femoral popliteal venous thrombosis. Morbid obesity, BMI 45.0 kg/m2 Marijuana use Date of Service: Oct 02, 2024 Billing Provider: EMILIANO MOLINA MD Common Visit Codes: 55138-BKS/OBS DISCH DAY >30min NATE MARTI RESIDENT Oct 02, 2024 19:28 EMILIANO MOLINA MD Oct 05, 2024 21:20
== END 2024-10-02 14:43 | disposition home or self-care (01) | DRG 720 ==
LOC: ER 07:02 → EDBD 07:02 → OVERFLOW 11:40 → ER 11:55 → TELE-WESTW 23:20
PROVIDERS: ADMIT Internal Medicine Geriatric Medicine; ATTEND Emergency Medicine
DX: A41.9 Sepsis, unspecified organism (principal); E11.621 Type 2 diabetes mellitus with foot ulcer; G90.89 Other disorders of autonomic nervous system; L97.518 Non-pressure chronic ulcer of other part of right foot with other specified severity; L03.115 Cellulitis of right lower limb; F12.90 Cannabis use, unspecified, uncomplicated; E11.65 Type 2 diabetes mellitus with hyperglycemia; E66.01 Morbid (severe) obesity due to excess calories; I10 Essential (primary) hypertension; I16.0 Hypertensive urgency; Z68.42 Body mass index [BMI] 45.0-49.9, adult; E87.6 Hypokalemia
CPT/HCPCS: 36415; 70450; 73620; 80048; 80053; 80202; 82962; 83036; 85025; 86703; 93306; 93886; 93971; 96365; 96375; 97163; G0378; J1815; J1885; J2405; J3490

== ENCOUNTER 2024-10-07 06:00 | Inpatient (IN) | payer MEDICAID ==
[2024-10-07] VITALS (16 sets, daily range): BP systolic 100–137; BP diastolic 67–102; PULSE 90–114; RESP 12–20; TEMP 97.2–98.2; O2SAT 94–100
[~2024-10-07] VITALS: Ht 188 cm; Wt 143.0 kg
[~2024-10-07 06:00] MED LIST: DOXY-346 PO; GABA-1250 PO; NIFE90TA75 PO
--- NOTE | 2024-10-07 06:07 | ECG ---
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
--- NOTE | 2024-10-07 06:15 | ED.PDOC ---
History of Present Illness HPI Comments This is a 49 year-old male, with a PMHX of DM and HTN, who presents to the ED via EMS with a chief complaint of R sided chest pain with associated SOB as of minutes ago S/P fall. Per EMS, patients initial BP was 48/34, sugar was 329, and patient was hypoxic on scene. EMS reports patient was just recently discharged from the ED on Sunday09/29/24, with diagnosed DM. EMS reports patients DM has been left untreated since. Patient has no further complaints at this time and otherwise denies cough, fever, chills, or general weakness. REVIEW OF SYSTEMS: No fever, no chills, or fatigue HEENT: No sore throat, no earache, no congestion, no neck pain. Cardiac: (+) chest pain. No palpitations. Lungs: (+) shortness of breath, no cough. GI: No nausea, no vomiting, no diarrhea, no constipation, no abdominal pain : No dysuria, frequency, or urgency. No hematuria. Musculoskeletal: No joint pain , no joint swelling, no extremity edema. Skin: No rash, no itching. Neuro: No headache, no dizziness, no weakness EXAM: General: Awake, alert and oriented. No acute distress. Skin: Skin in warm, dry and intact. Appropriate color for ethnicity. HEENT: The head is normocephalic and atraumatic. Conjunctivae are clear without exudates or hemorrhage. Sclera is non-icteric. EOM are intact. No signs of nystagmus. Eyelids are normal in appearance without swelling or lesions. Oral mucosa is pink and moist Neck: The neck is supple with normal range of motion. No JVD. Cardiac: Heart rate and rhythm are normal. No murmurs, gallops, or rubs are auscultated. Respiratory: (+) diminished breath sounds bilaterally, (+) tachypneic, (+) tachycardic Abdominal: Abdomen is soft, non-tender without distention. Bowel sounds are present and normoactive in all four quadrants. Extremities: Upper and lower extremities are atraumatic in appearance without deformity or edema. Neurological: The patient is awake, alert and oriented to person, place, and time with normal speech. Speech is clear. There is no facial asymmetry. Psychiatric: Appropriate mood and affect. Good judgement and insight. Chief Complaint: Chest Pain Time Seen by MD: 06:05 Reviewed Notes: Medications, Allergies Allergies: Coded Allergies: NO KNOWN ALLERGIES (Unverified , 03/30/21) Home Meds Active Scripts Doxycycline (Monohydrate) (Doxycycline) 100 Mg Tab, 100 MG PO BID for 7 Days, #14 TAB Prov:DAVE ROLLE RESIDENT 10/01/24 Nifedipine (Nifedipine Er) 90 Mg Tab, 1 TAB PO DAILY for 30 Days, #30 TAB 5 Refills Prov:DAVE ROLLE RESIDENT 10/01/24 Reported Medications Gabapentin (Gabapentin) 300 Mg Cap, 1 CAP PO TID, #90 CAP 5 Refills 09/29/24 Information Source: Patient, Emergency Med Personnel Mode of Arrival: EMS Severity: Moderate Duration: Since onset Prehospital treatment: 12 Lead EKG, Accucheck Past Medical History PAST MEDICAL HISTORY: DM, HTN Surgical History: Denies all surgeries Family History Family History: Reviewed,noncontributory to illness Social History Smoker: Non-Smoker Alcohol: Denies ETOH Use Drugs: Denies Drug Use Lives In: Home Was a procedure done? Was a procedure done?: No EKG EKG : Pulse Rate (adult): 120 [place]: Normal Cardiac Rhythm: ST Block: RBBB Comments Left Anterior Fascicular Block Differential Dx Considerations may include: acute Bronchitis, Asthma, COPD, Pneumothorax, PE, CHF, Pulmonary HTN, Anemia, CO Poisoning, Methemoglobinemia, Hyperventilation, Metabolic Acidosis, Pulmonary Edema, Pneumonia, ACS, Pericardial Tamponade, Anxiety, other X-Ray, Labs, Meds, VS Vital Signs Date Time Temp Pulse Resp B/P (MAP) Pulse Ox O2 Delivery O2 Flow Rate FiO2 10/07/24 06:00 122 Time of 1ST Reevaluation: 06:39 Reevaluation 1ST: Unchanged Patient Education/Counseling: Need For Follow Up Family Education/Counseling: No Family Present SEPSIS Sepsis Screen Physician Orders B-Type Natriuretic Peptide (10/07/24 06:05) Complete Blood Count (10/07/24 06:05) Lactic Acid W/ Reflex Order (10/07/24 06:05) Comprehensive Metabolic Panel (10/07/24 06:05) Covid19 Antigen Cuca (10/07/24 ) Rapid Influenza A&B (10/07/24 06:05) Troponin-I Hs (10/07/24 06:05) Thyroid Stimulating Hormone (10/07/24 06:05) Urinalysis (10/07/24 06:05) Chest Xray 1 View (10/07/24 06:05) Blood Culture (10/07/24 06:05) Abg W/ Co-Ox (10/07/24 06:05) Saline Lock (10/07/24 06:05) Industrial Psychology Teacher (10/07/24 ) Straight Cath. (10/07/24 ) Prothrombin Time W/ Inr (10/07/24 06:05) Electrocardigram (10/07/24 19:21) Electrocardigram (10/07/24 21:21) Troponin-I Hs (10/07/24 07:05) Electrocardigram (10/07/24 07:05) Electrocardigram (10/07/24 09:05) Chest Xray 1 View (10/07/24 06:07) Vital Signs Date Time Temp Pulse Resp B/P (MAP) Pulse Ox O2 Delivery O2 Flow Rate FiO2 10/07/24 06:00 122 Departure 1 Departure Time of Disposition: 17:27 (Patient presents with a acute shortness of breath. Emergently face the patient on BiPAP in the patient for further workup) Impression: Primary Impression: Acute respiratory failure Qualified Codes: J96.01 - Acute respiratory failure with hypoxia; J96.02 - Acute respiratory failure with hypercapnia Additional Impressions: Shortness of breath Generalized weakness Disposition: ADMITTED INPATIENT Admit to: [facility] Condition: Guarded Critical Care Note Critical Care Time?: Yes Critical care comment: Acute respiratory failure Authorized and Performed by: Destiney Cormier MD Total critical care time: Approximately 47 minutes Due to a high probability of clinically significant, life threatening deter ioration, the patient required my highest level of preparedness to intervene emergently and I personally spent this critical care time directly and personally managing the patient. This critical care time included obtaining a history; examining the patient; pulse oximetry; ordering and review of studies; arranging urgent treatment with development of a management plan; evaluation of patient's response to treatment; frequent reassessment; and, discussions with other providers. This critical care time was performed to assess and manage the high probability of imminent, life-threatening deterioration that could result in multi-organ fa ilure. It was exclusive of separately billable procedures and treating other patients and teaching time. Please see my other sections and the rest of the note for further information on patient assessment and treatment. Stability Stability form required: No Heart Score Heart Score: Heart Score Response (Comments) Value History Moderate Suspicious 1 EKG Normal 0 Age 45-64 1 Risk Factors 1 or 2 risk factors 1 Troponin N/A 0 Total 3 I personally scribed for ARNOLD MORALES MD ([place]) on 10/07/24 at 06:15. Electronically submitted by Sandi Scherer (FAST FELT). I personally scribed for ARNOLD MORALES MD (F?rsat Bu F?rsatCH) on 10/07/24 at 06:16. Electronically submitted by Sandi Scherer (FAST FELT). ARNOLD MORALES MD Oct 07, 2024 06:15 DESTINEY CORMIER MD Oct 07, 2024 17:29
--- NOTE | 2024-10-07 06:28 | DVH ---
CHEST RADIOGRAPH Indication: SOB Technique: Single frontal view of the chest was obtained COMPARISON: CHEST PORTABLE on DOS: 03/30/21 FINDINGS: Lines and Tubes: None Lungs: Clear Pleura: No effusion. No pneumothorax. Cardiomediastinal contours: Unremarkable Bones: Unremarkable IMPRESSION: 1. No acute disease.
[2024-10-07 06:50] LABS: Alanine Aminotransferase 35 U/L (7-40); Albumin 4.5 g/dL (3.2-4.8); Alkaline Phosphatase 74 U/L (46-116); Anion Gap 20 (5-15); BUN/Creatinine Ratio 22.3 (10.0-20.0); Calcium 9.3 mg/dL (8.7-10.4); Chloride 104 mmol/L (98-107); Potassium 4.5 mmol/L (3.5-5.1); Sodium 136 mmol/L (136-145); Total Protein 7.6 g/dL (5.7-8.2)
[2024-10-07 06:51] LABS: Bilirubin, Total 0.3 mg/dL (0.2-1.0); Blood Urea Nitrogen 61 mg/dL (9-23); Carbon Dioxide 12 mmol/L (20-31); Glucose 298 mg/dL (74-106)
[2024-10-07 07:04] LABS: Lactic Acid w/Reflex 4.0 mmol/L (0.4-2.0)
[2024-10-07 07:07] LABS: INR 1.3 (0.9-1.15); Prothrombin Time 13.4 sec (9.3-11.8)
[2024-10-07 07:12] LABS: Hematocrit 54.5 % (41.0-53.0); Hemoglobin 17.3 g/dL (13.5-17.5); Mean Corpuscular Hemoglobin 30.2 pg (28.0-32.0); Mean Corpuscular Volume 95.4 fL (80.0-100.0); Nucleated Red Blood Cells % 0.1 %
[2024-10-07 07:30] LABS: Base Excess -14.9 mmol/L (-2.0-3.0)
[2024-10-07 08:05] LABS: Urine Protein, UAD 2+ (Negative); Urine WBC Clumps PRESENT /hpf (None Seen)
[2024-10-07 08:27] LABS: COVID19 ANTIGEN SOFIA FIA NEGATIVE (NEGATIVE)
[2024-10-07] MEDS ORDERED: VANCOMYCIN 1GM/200ML PM 200 ML IV ONE (08:30)
[2024-10-07] MEDS: ONDANSETRON HCL 4 MG/2 ML VIAL IV ONE (08:45)
[2024-10-07] MEDS: MORPHINE SULFATE 4 MG/ML SYR/VIAL IV ONE (08:49)
[2024-10-07] MEDS: VANCOMYCIN 1GM/250ML KIT 250 ML IV ONE (09:02)
[2024-10-07] MEDS ORDERED: DOCUSATE SOD 100 MG CAP PO PRN (09:45)
[2024-10-07] MEDS ORDERED: MORPHINE SULFATE INJ 2 MG/ml SYRG IV PRN (09:45)
[2024-10-07] MEDS ORDERED: ONDANSETRON HCL 4 MG/2 ML VIAL IV PRN (09:45)
[2024-10-07] MEDS ORDERED: ACETAMINOPHEN 325 MG TAB PO PRN (09:45)
[2024-10-07] MEDS ORDERED: NITROGLYCERIN 0.4 MG SL TAB SL PRN ×2 (09:45→10:00)
[2024-10-07] MEDS ORDERED: SODIUM CHLORIDE 0.9% 1,000 ML IV ONE (09:45)
[2024-10-07] MEDS ORDERED: HYDROcodone-ACET 5/325MG TAB PO PRN (09:45)
[2024-10-07] MEDS ORDERED: ENOXAPARIN SOD 40 MG/0.4 ML SYRINGE SC SCH (10:00)
[2024-10-07] MEDS ORDERED: DEXTROSE (50%) 50ML SYRG IV PRN (10:30)
[2024-10-07] MEDS ORDERED: VANCOMYCIN PER PHARMACY 0 MG IV SCH (10:30)
[2024-10-07] MEDS: CEFEPIME 2GM/50ML NS 50 ML IV ONE (10:30)
[2024-10-07] MEDS: SODIUM CHLORIDE 0.9% 1,000 ML IV ONE ×2 (10:30→10:54)
--- NOTE | 2024-10-07 10:46 | DVHHP2 ---
History of Present Illness Reason for Visit: Generalized weakness History of Present Illness Stefano Crystal is a 49-year-old male with past medical history of diabetes and hypertension, who came to the hospital for generalized weakness. Patient was recently discharged from the hospital and returns stating he is feeling significantly worse. He states he feels weaker, thirsty, and dry. Cardiovascular: HTN Endocrine: Diabetes Past Surgical History: None Smoke: No ALCOHOL: none Drugs: Marijuana Lives: with Family Domestic Violence: Neg Review of Systems Constitutional: Yes: Weakness, Malaise; No: Fever, Chills, Sweats, Other Eyes: No: Pain, Vision change, Conjunctivae inflammation, Eyelid inflammation, Other, Redness ENT: No: Ear pain, Ear discharge, Nose pain, Nose discharge, Nose congestion, M outh pain, Mouth swelling, Throat pain, Throat swelling, Other Respiratory: No: Cough, Dry, Shortness of breath, SOB with excertion, Wheezing, Hemoptysis, Pleuritic Pain, Sputum, Wheezing, Other Cardiovascular: No: Chest Pain, Palpitations, Orthopnea, Paroxysmal Noc. Dyspnea, Edema, Lt Headedness, Other Gastrointestinal: No: Nausea, Vomiting, Abdominal Pain, Diarrhea, Constipation, Melena, Hematochezia, Other Genitourinary: No Dysuria, No Frequency, No Incontinence, No Hematuria, No Retention, No Other Musculoskeletal: No: other, neck pain, shoulder pain, arm pain, back pain, hand pain, leg pain, foot pain Skin: No: Rash, Lesions, Jaundice, Bruising, Other Neurological: No: Weakness, Numbness, Incoordination, Change in speech, Confu miranda, Seizures, Other Allergies: Coded Allergies: NO KNOWN ALLERGIES (Unverified , 03/30/21) Medications Current Medications Medications Dose Ordered Sig/Gavin Route Start Time Stop Time Status Last Admin Dose Admin Acetaminophen/ Hydrocodone Bitart 1 tab Q4HP PRN PO 10/07/24 09:45 UNV Ondansetron HCl 4 mg Q4HP PRN IV 10/07/24 09:45 UNV Docusate Sodium 100 mg BIDPRN PRN PO 10/07/24 09:45 UNV Enoxaparin Sodium 40 mg DAILY SC 10/07/24 10:00 UNV Acetaminophen 650 mg Q6HP PRN PO 10/07/24 09:45 UNV Nitroglycerin 0.4 mg Q5MINP PRN SL 10/07/24 09:45 UNV Morphine Sulfate 2 mg Q30M PRN IV 10/07/24 09:45 UNV Exam Vital Signs Vital Signs Date Time Temp Pulse Resp B/P (MAP) Pulse Ox O2 Delivery O2 Flow Rate FiO2 10/07/24 08:49 110 19 114/66 10/07/24 07:50 98 Oxymizer 4 N/A 10/07/24 07:15 97.3 97.3 General Appearance: Oriented X3, Cooperative, moderate distress, Other (drowsy) HEENT: Atraumatic, PERRLA, Other (Mucous membr dry) Respiratory: Clear to auscultation Cardiovascular: Normal S1, Normal S2, Other (ST) Abdominal: Normal bowel sounds, Soft Extremities: No clubbing, No cyanosis Skin: No rashes, No breakdown, No significant lesion Neuro: Other (unable to ambulate due to weakness at this time) Labs/Xrays Labs Test 10/07/24 07:47 10/07/24 07:40 10/07/24 07:25 10/07/24 07:24 Range/Units Influenza Type A Antigen Negative Negative Influenza Type B Antigen Negative Negative SARS-CoV-2 Antigen (Rapid) Negative NEGATIVE Lactic Acid Level 2.6 *H 0.4-2.0 mmol/L Troponin I High Sensitivity 74 *H </=54 ng/L Blood Gas Specimen Type Arterial Blood Gas Sample Site Right radial Blood Gas Patient Temperature 37.0 Arterial Blood Date Drawn [id number] Arterial Blood pH 7.195 *L 7.350-7.450 Arterial Blood Partial Pressure CO2 31.5 L 35.0-48.0 mmHg Arterial Blood Partial Pressure O2 127.6 H 83.0-108.0 mmHg Arterial Blood HCO3 11.9 L 21.0-28.0 mmol/L Arterial Blood Oxygen Saturation 97.8 94.0-98.0 % Arterial Blood Base Excess -14.9 L -2.0-3.0 mmol/L Arterial Blood Oxyhemoglobin 96.9 94.0-98.0 % Arterial Blood Carboxyhemoglobin 0.4 L 0.5-1.5 % Arterial Blood Methemoglobin 0.5 0.0-1.5 % Dominic Test Yes Blood Gas Total Hemoglobin 15.90 13.5-17.5 g/dL Blood Gas Set Respiration Rate 18.0 Blood Gas Modality Mask - bipap FiO2 % 50.0 Blood Gas EPAP 8 Blood Gas IPAP 16 Blood Gas Critical Value Read Back yes Blood Gas Notified Whom Blood Gas Notified Time [id number] Blood Gas Notified By document control manager rosario Ortiz 10/07/24 07:09 10/07/24 06:17 Range/Units Urine Color Light-orange Yellow Urine Clarity Turbid H Clear Urine pH 5.5 5.0-9.0 Urine Specific [place] 1.022 1.001-1.035 Urine Protein 2+ H Negative Urine Ketones Negative Negative Urine Blood 1+ H Negative /uL Urine Nitrite Negative Negative Urine Bilirubin Negative Negative Urine Urobilinogen Normal Negative mg/dL Urine Leukocyte Esterase 1+ Negative /uL Urine RBC 11 0 - 3 /hpf Urine WBC Clumps Present None Seen /hpf Urine Microscopic WBC 38 H 0-3 /HPF Urine Squamous Epithelial Cells Few <5 /hpf Urine Bacteria Few H None Seen /hpf Urine Mucus Few None Seen Urine Glucose 1+ H Normal mg/dL White Blood Count 17.3 H 4.4-10.8 10^3/uL Red Blood Count 5.72 4.5-5.90 10^6/uL Hemoglobin 17.3 13.5-17.5 g/dL Hematocrit 54.5 H 41.0-53.0 % Mean Corpuscular Volume 95.4 # 80.0-100.0 fL Mean Corpuscular Hemoglobin 30.2 28.0-32.0 pg Mean Corpuscular Hemoglobin Concent 31.7 L 32.0-36.0 g/dL Red Cell Distribution Width 15.0 H 11.8-14.3 % Platelet Count 174 140-450 10^3/uL Mean Platelet Volume 11.4 H 6.9-10.8 fL Neutrophils (%) (Auto) 66.7 37.0-80.0 % Lymphocytes (%) (Auto) 25.9 10.0-50.0 % Monocytes (%) (Auto) 5.4 0.0-12.0 % Eosinophils (%) (Auto) 1.7 0.0-7.0 % Basophils (%) (Auto) 0.3 0.0-2.0 % Neutrophils # (Auto) 11.5 H 1.6-8.6 10 ^3/uL Lymphocytes # (Auto) 4.5 0.4-5.4 10 ^3/uL Monocytes # (Auto) 0.9 0-1.3 10 ^3/uL Eosinophils # (Auto) 0.3 0-0.8 10 ^3/uL Basophils # (Auto) 0.1 0-0.2 10 ^3/uL Nucleated Red Blood Cells 0.1 % Prothrombin Time 13.4 H 9.3-11.8 sec Prothrombin Time INR 1.30 H 0.9-1.15 Sodium Level 136 136-145 mmol/L Potassium Level 4.5 3.5-5.1 mmol/L Chloride Level 104 98-107 mmol/L Carbon Dioxide Level 12 L 20-31 mmol/L Anion Gap 20 H 5-15 Blood Urea Nitrogen 61 H 9-23 mg/dL Creatinine 2.74 #H 0.700-1.30 mg/dL Glomerular Filtration Rate Calc 28 >90 mL/min BUN/Creatinine Ratio 22.3 H 10.0-20.0 Serum Glucose 298 #H 74-106 mg/dL Calcium Level 9.3 8.7-10.4 mg/dL Total Bilirubin 0.3 0.2-1.0 mg/dL Aspartate Amino Transferase (AST) 25 13-40 U/L Alanine Aminotransferase (ALT) 35 7-40 U/L Alkaline Phosphatase 74 46-116 U/L B-Type Natriuretic Peptide 3.07 0-100 pg/mL Total Protein 7.6 5.7-8.2 g/dL Albumin 4.5 3.2-4.8 g/dL Thyroid Stimulating Hormone (TSH) 3.41 0.55-4.78 uIU/mL CHEST RADIOGRAPH FINDINGS: Lines and Tubes: None Lungs: Clear Pleura: No effusion. No pneumothorax. Cardiomediastinal contours: Unremarkable Bones: Unremarkable IMPRESSION: 1. No acute disease. SEPSIS Sepsis Screen Date sepsis recognized/suspect: Oct 07, 2024 Time Sepsis recognized/suspect: 622 Recent Procedure: No On Antibiotic Therapy: No Respiratory Rate >20: No Heart Rate >90: No Temp<36 C (96.8 F) or >38.3 C: No SBP <90 or MAP <65 mmHG: No New Acute Mental Status Change: No Is the patient on CPAP, BIPAP,: No Physician Orders Blood Culture (10/07/24 06:05) Saline Lock (10/07/24 06:05) Burglar Alarm Inspector (10/07/24 ) Straight Cath. (10/07/24 ) Electrocardigram (10/07/24 19:21) Electrocardigram (10/07/24 21:21) Electrocardigram (10/07/24 07:05) Electrocardigram (10/07/24 09:05) Chest Xray 1 View (10/07/24 06:07) Abg W/ Co-Ox (10/07/24 07:30) Cefepime 2gm/50ml Ns (Maxipime 2gm/50ml) (10/07/24 08:30) Admit (10/07/24 09:41) Code Status (10/07/24:41) 2 Gm Sodium Diet (10/07/24 Lunch) Hydrocodone-Acet 5/325mg Tab ([place] 5/32 (10/07/24 09:45) Ondansetron Hcl (Zofran) (10/07/24 09:45) Docusate Sodium Capsule (Colace Capsule) (10/07/24 09:45) Enoxaparin Sodium (Lovenox) (10/07/24 10:00) Complete Blood Count (10/08/24 04:00) Comprehensive Metabolic Panel (10/08/24 04:00) Condition: Critical (10/07/24 09:41) Acetaminophen Tablet (Tylenol Tablet) (10/07/24 09:45) Nitroglycerin Sublingual (Ntrostat Subli (10/07/24 09:45) Morphine Sulfate Injection (10/07/24 09:45) Stat Ekg For Chest Pain (10/07/24:41) Notify Of Changes From Base (10/07/24 09:41) Net Programmer For 24 Hours (10/07/24 09:41) Emergency Dysrhythmia Protocol (10/07/24:41) Rhythm Strips Once Every Shift (10/07/24:41) Oxygen By Nasal Cannula (10/07/24:41) Sodium Chloride 0.9% (10/07/24 09:45) Sodium Chloride 0.9% (10/07/24 09:45) Comprehensive Metabolic Panel (10/07/24 13:00) Urine Bacterial Culture (10/07/24:41) Beta-Hydroxybutyrate (10/07/24 09:54) Vital Signs Date Time Temp Pulse Resp B/P (MAP) Pulse Ox O2 Delivery O2 Flow Rate FiO2 10/07/24 08:49 110 19 114/66 10/07/24 08:00 103 10/07/24 07:50 113 18 98 Oxymizer 4 N/A 10/07/24 07:15 97.3 111 18 152/127 (135) 100 97.3 10/07/24 07:12 117 10/07/24 07:00 113 19 152/127 (135) 100 10/07/24 06:27 116 100/53 Facial BiPAP Mask 50 10/07/24 06:15 120 10/07/24 06:12 97.0 118 32 84/53 94 97.0 10/07/24 06:05 114 20 99 Bi-Pap+ 50 50 10/07/24 06:05 97.0 117 24 100/53 (69) 97 97.0 10/07/24 06:00 122 Laboratory Tests Test 10/07/24 06:17 10/07/24 07:40 Lactic Acid Level 4.0 mmol/L (0.4-2.0) *H 2.6 mmol/L (0.4-2.0) *H White Blood Count 17.3 10^3/uL (4.4-10.8) H Medications Medications Dose Ordered Sig/Gavin Route Start Time Stop Time Status Last Admin Dose Admin Morphine Sulfate 4 mg ONCE ONCE IV 10/07/24 08:30 10/07/24 08:45 DC 10/07/24 08:49 4 MG Ondansetron HCl 4 mg ONCE ONCE IV 10/07/24 08:30 10/07/24 08:45 DC 10/07/24 08:45 4 MG Vancomycin HCl 250 ml @ 250 mls/hr ONCE ONCE IV 10/07/24 09:00 10/07/24 09:59 10/07/24 09:02 250 MLS/HR Assessment/Plan Assessment/Plan Assessment: Acute kidney injury, Metabolic acidosis, Lactic acidosis, Hypoxic respiratory failure, Possible sepsis, Complicated UTI, Elevated troponin, Leukocytosis, Uncontrolled diabetes, Plan: Admit SDU, IV antibiotics, IV hydration, Blood cultures, Urine culture, Supplemental oxygen as needed, Manage/Monitor electrolytes closely, Renal ultrasound, Place Vivar catheter, Strict I&O's, Plan discussed with: Patient My Orders Orders - ARAM GABRIEL Procedure Category Date Status Time Admit ADMIT 10/07/24 Transmitted 09:41 Code Status CODE 10/07/24 Transmitted 09:41 2 Gm Sodium Diet DIET 10/07/24 Transmitted Lunch Hydrocodone-Acet PHA 10/07/24 Logged 5/325mg Tab ([place] 09:45 Ondansetron Hcl PHA 10/07/24 Logged (Zofran) 09:45 Docusate Sodium PHA 10/07/24 Logged Capsule (Colace 09:45 Enoxaparin Sodium PHA 10/07/24 Logged (Lovenox) 10:00 Complete Blood Count LAB 10/08/24 Verified 04:00 Comprehensive LAB 10/08/24 Verified Metabolic Panel 04:00 Condition: Critical PIO 10/07/24 In Process 09:41 Acetaminophen Tablet PHA 10/07/24 Logged (Tylenol Tablet) 09:45 Nitroglycerin PHA 10/07/24 Logged Sublingual (Ntrostat 09:45 Morphine Sulfate PHA 10/07/24 Logged Injection 09:45 Stat Ekg For Chest [facility] 10/07/24 In Process Pain 09:41 Notify Md Of Changes [facility] 10/07/24 In Process From Base 09:41 Net Programmer For PIO 10/07/24 In Process 24 Hours 09:41 Emergency Dysrhythmia [facility] 10/07/24 In Process Protocol 09:41 Rhythm Strips Once [facility] 10/07/24 In Process Every Shift 09:41 Oxygen By Nasal RT 10/07/24 Transmitted Cannula 09:41 Sodium Chloride 0.9% PHA 10/07/24 Logged 09:45 Sodium Chloride 0.9% PHA 10/07/24 Logged 09:45 Comprehensive LAB 10/07/24 Logged Metabolic Panel 13:00 Urine Bacterial JAYLAN 10/07/24 Logged Culture 09:41 Beta-Hydroxybutyrate LAB 10/07/24 Logged 09:54 Date of Service: Oct 07, 2024 Billing Provider: ARAM GABRIEL Common Visit Codes: [id number] INP/OBS CARE (HIGH) ARAM GABRIEL Oct 07, 2024 10:46
[2024-10-07] MEDS: cefTRIAXone 1GM/50ML D5W 50 ML IV SCH (11:25)
[2024-10-07] MEDS: HYDROcodone-ACET 5/325MG TAB PO PRN (11:29)
[2024-10-07] MEDS: ACCU-CHEK COMFORT CURVE STRIP VI SCH (11:42)
[2024-10-07] MEDS: InsuLIN REG 1unit/0.01ml Soln (100units/ml) SC SCH ×2 (11:48→22:53)
[2024-10-07 14:24] LABS: Alanine Aminotransferase 32 U/L (7-40); Albumin 4.3 g/dL (3.2-4.8); Alkaline Phosphatase 66 U/L (46-116); Anion Gap 12 (5-15); BUN/Creatinine Ratio 19.8 (10.0-20.0); Calcium 8.9 mg/dL (8.7-10.4); Potassium 5.0 mmol/L (3.5-5.1); Sodium 138 mmol/L (136-145); Total Protein 7.1 g/dL (5.7-8.2)
[2024-10-07 14:25] LABS: Bilirubin, Total 0.2 mg/dL (0.2-1.0); Blood Urea Nitrogen 42 mg/dL (9-23); Carbon Dioxide 19 mmol/L (20-31); Chloride 107 mmol/L (98-107); Glucose 141 mg/dL (74-106)
[2024-10-07] MEDS: LINEZOLID 600MG/300ML 300 ML IV SCH (16:15)
--- NOTE | 2024-10-07 16:17 | DVH ---
INDICATION: ALEXANDRE TECHNIQUE: Multiple real-time sonographic images of the kidneys and bladder were obtained. COMPARISON: None FINDINGS: RIGHT kidney measures 10.7 cm in length. No hydronephrosis. LEFT kidney measures 13.1 cm in length. No hydronephrosis. Vivar catheter in the urinary bladder. IMPRESSION: 1. Unremarkable examination.
[2024-10-07] MEDS: MORPHINE SULFATE INJ 2 MG/ml SYRG IV PRN (16:56)
[2024-10-07] MEDS: CALCIUM CARB 500 MG CHEW TAB PO PRN (21:01)
[2024-10-08] VITALS (35 sets, daily range): BP systolic 113–192; BP diastolic 67–130; PULSE 86–115; RESP 12–20; TEMP 97–99.2; O2SAT 93–100
--- NOTE | 2024-10-08 01:07 | DVHINCON2 ---
Date of service: Oct 07, 2024 Referring Physician Shanelle Reason for Consultation Elevated troponin History of Present Illness This is a 49 year old male with a PMH of DM and HTN brought in by EMS with complaints of right sided chest pain with associated SOB S/P fall. Per EMS, patients initial BP was 48/34, sugar was 329, and patient was hypoxic on scene. EMS reports patient was just recently discharged from the ED on Sunday09/29/24, with diagnosed DM. EMS reports patients DM has been left untreated since. EKG shows tachycardia with RBBB. WBC17.3, BUN 61, Transportation Specialist 2.74, LA 4.0. Troponin 74 > 616 > 593. Viral swabs are negative. Chest x-ray shows NAD. Patient was admitted to the hospital. I am asked to consult on this patient. Family History: FH: HTN (hypertension) FH: diabetes mellitus Allergies: Coded Allergies: NO KNOWN ALLERGIES (Unverified , 03/30/21) Home Meds Active Scripts Doxycycline (Monohydrate) (Doxycycline) 100 Mg Tab, 100 MG PO BID for 7 Days, #14 TAB Prov:DAVE ROLLE RESIDENT 10/01/24 Nifedipine (Nifedipine Er) 90 Mg Tab, 1 TAB PO DAILY for 30 Days, #30 TAB 5 Refills Prov:DAVE ROLLE RESIDENT 10/01/24 Reported Medications Gabapentin (Gabapentin) 300 Mg Cap, 1 CAP PO TID, #90 CAP 5 Refills 09/29/24 Current Medications Current Medications Medications (Trade) Dose Ordered Sig/Gavin Route PRN Reason Start Time Stop Time Status Last Admin Acetaminophen/ Hydrocodone Bitart ([place] 5/325MG Tab) 1 tab Q4HP PRN PO MODERATE PAIN (4-6 PAIN SCALE) 10/07/24 09:45 10/07/24 10:02 DC Ondansetron HCl (Zofran) 4 mg Q4HP PRN IV NAUSEA / VOMITING 10/07/24 09:45 10/07/24 10:02 DC Docusate Sodium (Colace Capsule) 100 mg BIDPRN PRN PO FOR CONSTIPATION 10/07/24 09:45 10/07/24 10:02 DC Enoxaparin Sodium (Lovenox) 40 mg DAILY SC 10/07/24 10:00 10/07/24 10:02 DC Acetaminophen (Tylenol Tablet) 650 mg Q6HP PRN PO PAIN SCALE 1-3 OR TEMP>100.4 10/07/24 09:45 10/07/24 10:02 DC Nitroglycerin (Ntrostat Sublingual) 0.4 mg Q5MINP PRN SL FOR CHEST PAIN 10/07/24 09:45 10/07/24 10:02 DC Morphine Sulfate 2 mg Q30M PRN IV FOR CHEST PAIN 10/07/24 09:45 10/07/24 10:02 DC Ondansetron HCl (Zofran) 4 mg Q4HP PRN IV NAUSEA / VOMITING 10/07/24 10:00 Enoxaparin Sodium (Lovenox) 40 mg DAILY SC 10/07/24 10:15 Morphine Sulfate 2 mg Q30M PRN IV FOR CHEST PAIN 10/07/24 10:00 Acetaminophen/ Hydrocodone Bitart ([place] 5/325MG Tab) 1 tab Q4HP PRN PO MODERATE PAIN (4-6 PAIN SCALE) 10/07/24 10:00 10/07/24 11:29 Docusate Sodium (Colace Capsule) 100 mg BIDPRN PRN PO FOR CONSTIPATION 10/07/24 10:00 Acetaminophen (Tylenol Tablet) 650 mg Q6HP PRN PO PAIN SCALE 1-3 OR TEMP>100.4 10/07/24 10:00 Nitroglycerin (Ntrostat Sublingual) 0.4 mg Q5MINP PRN SL FOR CHEST PAIN 10/07/24 10:00 Diagnostic Test (Pha) (Accu-Chek Comfort Curve T) 1 strip ACHS 10/07/24 11:30 10/07/24 22:54 Insulin Human Regular (InsuLIN R) HS SC 10/07/24 22:00 10/07/24 22:53 Insulin Human Regular (InsuLIN R) AC SC 10/07/24 11:30 10/07/24 17:13 Dextrose 50 ml UD PRN IV Blood Sugar LESS THAN 60 10/07/24 10:30 Vancomycin HCl 0 ml @ 0 mls/hr UD IV 10/07/24 10:30 10/07/24 15:34 DC Ceftriaxone Sodium 50 ml @ 100 mls/hr DAILY@09 IV 10/07/24 10:32 10/07/24 11:25 Linezolid 300 ml @ 150 mls/hr Q12H IV 10/07/24 16:00 10/07/24 16:15 Morphine Sulfate 2 mg Q4HPRN PRN IV SEVERE PAIN (7-10 PAIN SCALE) 10/07/24 16:30 10/07/24 21:11 Calcium Carbonate (Tums) 500 mg Q4HPRN PRN PO FOR STOMACH DISTRESS 10/07/24 20:45 10/07/24 21:01 Review of Systems Constitutional: Yes: Weakness, Malaise; No: Fever, Chills, Sweats, Other Eyes: No: Pain, Vision change, Conjunctivae inflammation, Eyelid inflammation, Other, Redness ENT: No: Ear pain, Ear discharge, Nose pain, Nose discharge, Nose congestion, Mouth pain, Mouth swelling, Throat pain, Throat swelling, Other Respiratory: No: Cough, Dry, Shortness of breath, SOB with excertion, Wheezing, Hemoptysis, Pleuritic Pain, Sputum, Wheezing, Other Cardiovascular: No: Chest Pain, Palpitations, Orthopnea, Paroxysmal Noc. Dyspnea, Edema, Lt Headedness, Other Gastrointestinal: No: Nausea, Vomiting, Abdominal Pain, Diarrhea, Constipation, Melena, Hematochezia, Other Genitourinary: No Dysuria, No Frequency, No Incontinence, No Hematuria, No Retention, No Other Musculoskeletal: No: other, neck pain, shoulder pain, arm pain, back pain, hand pain, leg pain, foot pain Skin: No: Rash, Lesions, Jaundice, Bruising, Other Neurological: No: Weakness, Numbness, Incoordination, Change in speech, Confusion, Seizures, Other Vital Signs Vital Signs Date Time Temp Pulse Resp B/P (MAP) Pulse Ox O2 Delivery O2 Flow Rate FiO2 10/07/24 21:11 93 15 117/81 10/07/24 20:30 99 10/07/24 20:00 98.2 98.2 10/07/24 18:24 Oxymizer 4 N/A Physical Exam GENERAL: Alert and oriented x 3. No acute distress. EYES: PERRL, EOMI. Anicteric. HENT: Moist mucous membranes. LUNGS: Clear to auscultation bilaterally. CARDIOVASCULAR: Regular rate and rhythm. ABDOMEN: Soft, non-tender and non-distended. EXTREMITIES: No edema. NEUROLOGIC: No focal neurological deficits. SKIN: Warm, dry. Labs/Diagnostic Data Labs Test 10/07/24 22:47 10/07/24 19:45 10/07/24 16:06 10/07/24 13:34 Range/Units POC Glucose 150 H 70-106 mg/dl Troponin I High Sensitivity 699 *H </=54 ng/L Lactic Acid Level 1.2 0.4-2.0 mmol/L Sodium Level 138 136-145 mmol/L Potassium Level 5.0 3.5-5.1 mmol/L Chloride Level 107 98-107 mmol/L Carbon Dioxide Level 19 L 20-31 mmol/L Anion Gap 12 5-15 Blood Urea Nitrogen 42 #H 9-23 mg/dL Creatinine 2.12 H 0.700-1.30 mg/dL Glomerular Filtration Rate Calc 38 >90 mL/min BUN/Creatinine Ratio 19.8 10.0-20.0 Serum Glucose 141 #H 74-106 mg/dL Calcium Level 8.9 8.7-10.4 mg/dL Total Bilirubin 0.2 0.2-1.0 mg/dL Aspartate Amino Transferase (AST) 18 13-40 U/L Alanine Aminotransferase (ALT) 32 7-40 U/L Alkaline Phosphatase 66 46-116 U/L Total Protein 7.1 5.7-8.2 g/dL Albumin 4.3 3.2-4.8 g/dL Test 10/07/24 07:47 10/07/24 07:24 10/07/24 07:09 10/07/24 06:17 Range/Units Influenza Type A Antigen Negative Negative Influenza Type B Antigen Negative Negative SARS-CoV-2 Antigen (Rapid) Negative NEGATIVE Blood Gas Specimen Type Arterial Blood Gas Sample Site Right radial Blood Gas Patient Temperature 37.0 Arterial Blood Date Drawn [id number] Arterial Blood pH 7.195 *L 7.350-7.450 Arterial Blood Partial Pressure CO2 31.5 L 35.0-48.0 mmHg Arterial Blood Partial Pressure O2 127.6 H 83.0-108.0 mmHg Arterial Blood HCO3 11.9 L 21.0-28.0 mmol/L Arterial Blood Oxygen Saturation 97.8 94.0-98.0 % Arterial Blood Base Excess -14.9 L -2.0-3.0 mmol/L Arterial Blood Oxyhemoglobin 96.9 94.0-98.0 % Arterial Blood Carboxyhemoglobin 0.4 L 0.5-1.5 % Arterial Blood Methemoglobin 0.5 0.0-1.5 % Dominic Test Yes Blood Gas Total Hemoglobin 15.90 13.5-17.5 g/dL Blood Gas Set Respiration Rate 18.0 Blood Gas Modality Mask - bipap FiO2 % 50.0 Blood Gas EPAP 8 Blood Gas IPAP 16 Blood Gas Critical Value Read Back yes Blood Gas Notified Whom Blood Gas Notified Time [id number] Blood Gas Notified By supply chain procurement manager rosario Urine Color Light-orange Yellow Urine Clarity Turbid H Clear Urine pH 5.5 5.0-9.0 Urine Specific [place] 1.022 1.001-1.035 Urine Protein 2+ H Negative Urine Ketones Negative Negative Urine Blood 1+ H Negative /uL Urine Nitrite Negative Negative Urine Bilirubin Negative Negative Urine Urobilinogen Normal Negative mg/dL Urine Leukocyte Esterase 1+ Negative /uL Urine RBC 11 0 - 3 /hpf Urine WBC Clumps Present None Seen /hpf Urine Microscopic WBC 38 H 0-3 /HPF Urine Squamous Epithelial Cells Few <5 /hpf Urine Bacteria Few H None Seen /hpf Urine Mucus Few None Seen Urine Glucose 1+ H Normal mg/dL White Blood Count 17.3 H 4.4-10.8 10^3/uL Red Blood Count 5.72 4.5-5.90 10^6/uL Hemoglobin 17.3 13.5-17.5 g/dL Hematocrit 54.5 H 41.0-53.0 % Mean Corpuscular Volume 95.4 # 80.0-100.0 fL Mean Corpuscular Hemoglobin 30.2 28.0-32.0 pg Mean Corpuscular Hemoglobin Concent 31.7 L 32.0-36.0 g/dL Red Cell Distribution Width 15.0 H 11.8-14.3 % Platelet Count 174 140-450 10^3/uL Mean Platelet Volume 11.4 H 6.9-10.8 fL Neutrophils (%) (Auto) 66.7 37.0-80.0 % Lymphocytes (%) (Auto) 25.9 10.0-50.0 % Monocytes (%) (Auto) 5.4 0.0-12.0 % Eosinophils (%) (Auto) 1.7 0.0-7.0 % Basophils (%) (Auto) 0.3 0.0-2.0 % Neutrophils # (Auto) 11.5 H 1.6-8.6 10 ^3/uL Lymphocytes # (Auto) 4.5 0.4-5.4 10 ^3/uL Monocytes # (Auto) 0.9 0-1.3 10 ^3/uL Eosinophils # (Auto) 0.3 0-0.8 10 ^3/uL Basophils # (Auto) 0.1 0-0.2 10 ^3/uL Nucleated Red Blood Cells 0.1 % Prothrombin Time 13.4 H 9.3-11.8 sec Prothrombin Time INR 1.30 H 0.9-1.15 B-Type Natriuretic Peptide 3.07 0-100 pg/mL Beta-Hydroxybutyric Acid 0.566 H < 0.4 mmol/L Thyroid Stimulating Hormone (TSH) 3.41 0.55-4.78 uIU/mL Assessment Acute kidney injury. Metabolic acidosis. Lactic acidosis. Hypoxic respiratory failure. Possible sepsis. Complicated UTI. Elevated troponin. Leukocytosis. Uncontrolled diabetes. Plan/Recommendation I agree with your ongoing assessment and care of plan. Trend troponin. Morphine and Hustle fo pain management. IV antibiotics as ordered. DVT prophylactics. Nitro SL. Additional plan as per the hospital course. Critical care time of 90 minutes provided to include time spent evaluation of patient at bedside, when appropriate patient/family education for diagnosis, treatment plan, review of pertinent medical information and discussion of care with specialty providers and PCP. Plan discussed with: Patient PATSY LUZ MD Oct 08, 2024 01:07
[2024-10-08 05:42] LABS: Hematocrit 43.6 % (41.0-53.0); Hemoglobin 14.9 g/dL (13.5-17.5); Mean Corpuscular Hemoglobin 30.2 pg (28.0-32.0); Mean Corpuscular Volume 88.3 fL (80.0-100.0); Nucleated Red Blood Cells % 0.1 %
[2024-10-08 05:57] LABS: Alanine Aminotransferase 24 U/L (7-40); Albumin 3.7 g/dL (3.2-4.8); Alkaline Phosphatase 63 U/L (46-116); Anion Gap 12 (5-15); BUN/Creatinine Ratio 54.6 (10.0-20.0); Bilirubin, Total 0.4 mg/dL (0.2-1.0); Calcium 9.2 mg/dL (8.7-10.4); Potassium 4.1 mmol/L (3.5-5.1); Sodium 141 mmol/L (136-145); Total Protein 6.1 g/dL (5.7-8.2)
[2024-10-08 06:00] LABS: Blood Urea Nitrogen 53 mg/dL (9-23); Carbon Dioxide 20 mmol/L (20-31); Chloride 109 mmol/L (98-107); Glucose 135 mg/dL (74-106)
[2024-10-08] MEDS: PANTOPRAZOLE 40 MG TAB PO SCH (08:47)
[2024-10-08] MEDS: ENOXAPARIN SOD 40 MG/0.4 ML SYRINGE SC SCH (08:48)
[2024-10-08] MEDS: METOPROLOL SUCCINATE XL 50 MG TAB PO SCH (12:07)
[2024-10-08] MEDS: ONDANSETRON HCL 4 MG/2 ML VIAL IV PRN (12:07)
--- NOTE | 2024-10-08 14:13 | DVH ---
INDICATION: CHOLECYSTITIS TECHNIQUE: Multiple real-time sonographic images were obtained of the right upper quadrant. COMPARISON: None FINDINGS: The liver demonstrates heterogeneous echotexture without focal mass lesions. The liver ankit ures 23 cm. There is no intrahepatic or extrahepatic ductal dilatation. The common duct measures 0 .5 mm. Gallstones. The gallbladder wall measures 0.2mm and is within normal limits. The pancreas is not well visualized due to overlying bowel gas. IMPRESSION: Gallstones. Hepatic steatosis. Hepatomegaly.
--- NOTE | 2024-10-08 14:27 | DVHPN2 ---
Subjective Patient complaining of generalized abdominal pain Reviewed: Care Plan, H&P, Labs, Medications Changes from previous H/P or p: No Changes General: Per HPI Eyes: No Pain, No Vision change, No Conjunctivae inflammation, No Eyelid inflammation, No Other, No Redness ENT: No Ear pain, No Ear discharge, No Nose pain, No Nose discharge, No Nose congestion, No Mouth pain, No Mouth swelling, No Throat pain, No Throat swelling, No Other Cardiovascular: No Chest Pain, No Palpitations, No Orthopnea, No Paroxysmal Noc. Dyspnea, No Edema, No Lt Headedness, No Other Respiratory: No Cough, No Dry, No Shortness of breath, No SOB with excertion, No Wheezing, No Hemoptysis, No Pleuritic Pain, No Sputum, No Other Gastrointestinal: No Nausea, No Vomiting, No Abdominal Pain, No Diarrhea, No Constipation, No Melena, No Hematochezia, No Other Genitourinary: No Dysuria, No Frequency, No Incontinence, No Hematuria, No Retention, No Other Musculoskeletal: No other, No neck pain, No shoulder pain, No arm pain, No back pain, No hand pain, No leg pain, No foot pain Skin: No Rash, No Lesions, No Jaundice, No Bruising, No Other Objective Vitals Vital Signs Date Time Temp Pulse Resp B/P (MAP) Pulse Ox O2 Delivery O2 Flow Rate FiO2 10/08/24 14:00 100 15 151/94 (113) 95 10/08/24 12:00 98.3 98.3 10/08/24 08:00 Room Air* 0 21 Intake/Output Intake and Output 10/08/24 07:00 Intake Total 2700.0 ml Output Total 1750 ml Balance 950.0 ml Intake Oral 500 ml IV Total 2200.0 ml Output Urine Total 1750 ml # Voids 1 General Appearance: Alert, Oriented X3, Cooperative HEENT: Atraumatic, PERRLA Lungs: Clear to auscultation, Normal air movement Cardiovascular: Normal S1, Normal S2 Musculoskeletal: Normal sensory function, Normal motor function Skin: Dry, Intact Psych/Mental Status: Mental status NL, Mood NL Medications Current Medications Medications Dose Ordered Sig/Gavin Route Start Time Stop Time Status Last Admin Dose Admin Ondansetron HCl 4 mg Q4HP PRN IV 10/07/24 10:00 10/08/24 12:07 4 MG Enoxaparin Sodium 40 mg DAILY SC 10/07/24 10:15 10/08/24 08:48 40 MG Morphine Sulfate 2 mg Q30M PRN IV 10/07/24 10:00 Acetaminophen/ Hydrocodone Bitart 1 tab Q4HP PRN PO 10/07/24 10:00 10/08/24 12:06 1 TAB Docusate Sodium 100 mg BIDPRN PRN PO 10/07/24 10:00 Acetaminophen 650 mg Q6HP PRN PO 10/07/24 10:00 Nitroglycerin 0.4 mg Q5MINP PRN SL 10/07/24 10:00 Diagnostic Test (Pha) 1 strip ACHS 10/07/24 11:30 10/08/24 12:07 1 STRIP Insulin Human Regular HS SC 10/07/24 22:00 10/07/24 22:53 2 UNITS Insulin Human Regular AC SC 10/07/24 11:30 10/08/24 12:07 2 UNITS Dextrose 50 ml UD PRN IV 10/07/24 10:30 Ceftriaxone Sodium 50 ml @ 100 mls/hr DAILY@09 IV 10/07/24 10:32 10/08/24 08:48 100 MLS/HR Linezolid 300 ml @ 150 mls/hr Q12H IV 10/07/24 16:00 10/08/24 03:42 150 MLS/HR Calcium Carbonate 500 mg Q4HPRN PRN PO 10/07/24 20:45 10/08/24 06:08 500 MG Pantoprazole Sodium 40 mg DAILY@1000 PO 10/08/24 10:00 10/08/24 08:47 40 MG Metoprolol Succinate 25 mg DAILY PO 10/08/24 11:00 10/08/24 12:07 25 MG Laboratory Results Laboratory Tests 10/08/24 05:04 10/08/24 05:09 Chemistry Test 10/08/24 05:04 Albumin 3.7 g/dL (3.2-4.8) Calcium Level 9.2 mg/dL (8.7-10.4) Total Protein 6.1 g/dL (5.7-8.2) Coagulation Test 10/08/24 11:46 D-Dimer, Quantitative 10.62 mg/L FEU (0.0-0.49) H LFT Test 10/08/24 05:04 Alanine Aminotransferase (ALT) 24 U/L (7-40) Alkaline Phosphatase 63 U/L (46-116) Aspartate Amino Transferase (AST) 19 U/L (13-40) Total Bilirubin 0.4 mg/dL (0.2-1.0) Urinalysis Test 10/07/24 07:09 Urine Color Light-orange (Yellow) Urine Clarity Turbid (Clear) H Urine pH 5.5 (5.0-9.0) Urine Specific [place] 1.022 (1.001-1.035) Urine Protein 2+ (Negative) H Urine Ketones Negative (Negative) Urine Blood 1+ /uL (Negative) H Urine Nitrite Negative (Negative) Urine Bilirubin Negative (Negative) Urine Urobilinogen Normal mg/dL (Negative) Urine Leukocyte Esterase 1+ /uL (Negative) Urine RBC 11 /hpf (0 - 3) Urine WBC Clumps Present /hpf (None Seen) Urine Microscopic WBC 38 /HPF (0-3) H Urine Squamous Epithelial Cells Few /hpf (<5) Urine Bacteria Few /hpf (None Seen) H Urine Mucus Few (None Seen) Urine Glucose 1+ mg/dL (Normal) H Microbiology Microbiology Date/Time Source Procedure Growth Status 10/07/24 17:55 Nose MRSA Screen - Final Complete 10/07/24 07:40 Blood Blood Culture - Preliminary Resulted 10/07/24 07:09 Voided Urine Urine Culture - Preliminary Resulted Labs and/or images reviewed: Labs reviewed by me, Image(s) reviewed by me Assessment/Plan Assessment/Plan Impression: -leukocytosis, rule out sepsis -obesity -NSTEMI, questionable type II. Noted left and right bundle-branch block. Troponins trending down -diabetes mellitus -peripheral neuropathy -anxiety disorder -syncope -cholelithiasis Plan: -cardiology consultation: Recommendations reviewed -gallbladder ultrasound -regular insulin sliding scale -to be start gabapentin -continue empiric antibiotic therapy -repeat blood culture tomorrow -repeat labs in a.m. -transferred to telemetry unit Total time spent with patient discussing and formulating plan of care: 35 minutes. This medical document was created using an electronic medical record system with [employer] dictation system. Although this document has been carefully reviewed, there may still be some phonetic and typographical errors. These areas are purely typographical due to imperfections of the software programs, and do not reflect any compromise in the patient's medical care. Plan discussed with: Patient, Other (rn) My Orders Orders - TYRON KAUFFMAN NP Procedure Category Date Status Time Drug Screen LAB 10/08/24 Logged 10:57 Metoprolol Xl PHA 10/08/24 In Process Succinate (Toprol Xl) 11:00 Basic Metabolic Panel LAB 10/09/24 Verified 04:00 Complete Blood Count LAB 10/09/24 Verified 04:00 Transfer Orders XFER 10/08/24 Transmitted 13:17 Gallbladder US 10/08/24 Resulted 13:17 Date of Service: Oct 08, 2024 Billing Provider: TYRON KAUFFMAN NP Common Visit Codes: [id number] INP/OBS CARE(HIGH) TYRON KAUFFMAN NP Oct 08, 2024 14:27
[2024-10-08] MEDS: LABETALOL HCL 20 MG/4 ML VL IV ONE (20:14)
[2024-10-08] MEDS: dilTIAZem 25 MG/5 ML VIAL IV ONE (22:17)
[2024-10-08] MEDS: MELATONIN 5 MG TAB PO ONE (22:45)
--- NOTE | 2024-10-08 23:43 | DVHPN2 ---
Progress Note - Dictate Date Seen: Oct 08, 2024 Medical Necessity Reason Pt with a Central, PICC or Fol: No Subjective Patient was seen and evaluated in follow up in the ICU. Patient is complaining of heartburn. BP is trending high. D-dimer 10.62, BUN 53, TROP 381. Gallbladder show gallstones, hepatic steatosis and hepatomegaly. vital signs Vital Sign Date Time Temp Pulse Resp B/P (MAP) Pulse Ox O2 Delivery O2 Flow Rate FiO2 10/08/24 13:30 99 18 153/99 (117) 96 10/08/24 12:00 98.3 98.3 10/08/24 08:00 Room Air* 0 21 Total Intake and Output 10/07/24 10/07/24 10/08/24 15:00 23:00 07:00 Intake Total 1650.0 ml 250 ml 800 ml Output Total 1750 ml Balance 1650.0 ml 250 ml -950 ml medications Current Medications Medications Dose Ordered Sig/Gavin Route Start Time Stop Time Status Last Admin Dose Admin Ondansetron HCl 4 mg Q4HP PRN IV 10/07/24 10:00 10/08/24 12:07 4 MG Enoxaparin Sodium 40 mg DAILY SC 10/07/24 10:15 10/08/24 08:48 40 MG Morphine Sulfate 2 mg Q30M PRN IV 10/07/24 10:00 Acetaminophen/ Hydrocodone Bitart 1 tab Q4HP PRN PO 10/07/24 10:00 10/08/24 12:06 1 TAB Docusate Sodium 100 mg BIDPRN PRN PO 10/07/24 10:00 Acetaminophen 650 mg Q6HP PRN PO 10/07/24 10:00 Nitroglycerin 0.4 mg Q5MINP PRN SL 10/07/24 10:00 Diagnostic Test (Pha) 1 strip ACHS 10/07/24 11:30 10/08/24 12:07 1 STRIP Insulin Human Regular HS SC 10/07/24 22:00 10/07/24 22:53 2 UNITS Insulin Human Regular AC SC 10/07/24 11:30 10/08/24 12:07 2 UNITS Dextrose 50 ml UD PRN IV 10/07/24 10:30 Ceftriaxone Sodium 50 ml @ 100 mls/hr DAILY@09 IV 10/07/24 10:32 10/08/24 08:48 100 MLS/HR Linezolid 300 ml @ 150 mls/hr Q12H IV 10/07/24 16:00 10/08/24 03:42 150 MLS/HR Calcium Carbonate 500 mg Q4HPRN PRN PO 10/07/24 20:45 10/08/24 06:08 500 MG Pantoprazole Sodium 40 mg DAILY@1000 PO 10/08/24 10:00 10/08/24 08:47 40 MG Metoprolol Succinate 25 mg DAILY PO 10/08/24 11:00 10/08/24 12:07 25 MG objective GENERAL: Alert and oriented x 3. No acute distress. EYES: PERRL, EOMI. Anicteric. HENT: Moist mucous membranes. LUNGS: Clear to auscultation bilaterally. CARDIOVASCULAR: Regular rate and rhythm. ABDOMEN: Soft, non-tender and non-distended. EXTREMITIES: No edema. NEUROLOGIC: No focal neurological deficits. SKIN: Warm, dry. laboratory and microbiology Laboratory Tests 10/08/24 05:09 10/08/24 05:04 Test 10/08/24 05:04 Range/Units Serum Glucose 135 H 74-106 mg/dL Problem List Acute kidney injury. Metabolic acidosis. Lactic acidosis. Hypoxic respiratory failure. Possible sepsis. Complicated UTI. Elevated troponin. Leukocytosis. Uncontrolled diabetes. Assessment/Plan Continued all current supportive medical care. Morphine and [place] for pain management. IV antibiotics as ordered. DVT and GI prophylactics. Nitro SL. Metoprolol. Additional plan as per the hospital course. Critical care time of 45 minutes provided to include time spent evaluation of patient at bedside, when appropriate patient/family education for diagnosis, treatment plan, review of pertinent medical information and discussion of care with specialty providers and PCP. Plan discussed with: Patient PATSY LUZ MD Oct 08, 2024 14:21
[2024-10-09] VITALS (9 sets, daily range): BP systolic 134–172; BP diastolic 89–106; PULSE 88–101; RESP 18–21; TEMP 97.3–98.1; O2SAT 92–98
--- NOTE | 2024-10-09 08:42 | ECG ---
[facility] Test Date: 2024-10-07 Test Time: 22:44:37 Pat Name: RITESH LEONARDO Department: Respiratoy Room: 0271T Gender: M Knowledge Architect: WILLIE : 1975 Requested By: HOLLI KENNEY Order Number: [id number] Reading MD: Gavin Lucio Measurements Intervals [place] Rate: 103 P: 46 MO: 153 QRS: -52 QRSD: 155 T: 31 QT: 372 QTc: 487 Interpretive Statements Sinus tachycardia RBBB and LAFB Probable left ventricular hypertrophy Electronically Signed On 10-13-2024 22:12:41 PDT by Gavin Lucio Please click the below link to view image of tracing.
[2024-10-09 09:53] LABS: Hematocrit 44.4 % (41.0-53.0); Hemoglobin 15.4 g/dL (13.5-17.5); Mean Corpuscular Hemoglobin 30.2 pg (28.0-32.0); Mean Corpuscular Volume 87.1 fL (80.0-100.0); Nucleated Red Blood Cells % 0.0 %
[2024-10-09 10:03] LABS: Chloride 107 mmol/L (98-107); Potassium 4.0 mmol/L (3.5-5.1); Sodium 140 mmol/L (136-145)
[2024-10-09 10:25] LABS: Anion Gap 10 (5-15); Carbon Dioxide 23 mmol/L (20-31)
[2024-10-09 10:26] LABS: Calcium 9.3 mg/dL (8.7-10.4)
[2024-10-09 10:30] LABS: BUN/Creatinine Ratio 27.4 (10.0-20.0); Blood Urea Nitrogen 17 mg/dL (9-23)
[2024-10-09 10:33] LABS: Glucose 180 mg/dL (74-106)
[2024-10-09] MEDS ORDERED: HYDR-4902 PO (13:34)
[2024-10-09] MEDS ORDERED: CIPR500T4 PO (13:34)
[2024-10-09] MEDS ORDERED: METO-6 PO (13:34)
--- NOTE | 2024-10-09 13:38 | ECG ---
[facility] Test Date: 2024-10-09 Test Time: 12:19:27 Pat Name: RITESH LEONARDO Department: Room: 0271T Gender: M Orthotic Technician: ELISABETALEXSANDER : 1975 Requested By: TYRON KAUFFMAN Order Number: [id number] Reading MD: Gavin Lucio Measurements Intervals [place] Rate: 94 P: 40 [place]: 148 QRS: -56 QRSD: 149 T: 2 QT: 381 QTc: 477 Interpretive Statements Sinus rhythm RBBB and LAFB Lateral infarct, age indeterminate Electronically Signed On 10-13-2024 22:14:24 PDT by Gavin Lucio Please click the below link to view image of tracing.
--- NOTE | 2024-10-09 13:42 | DVHDS2 ---
Discharge Summary Date of Admission Oct 07, 2024 at 09:41 Date of Discharge: Oct 09, 2024 Labs/Diagnostic Data: Laboratory Results Test 10/09/24 12:14 10/09/24 09:15 10/08/24 11:46 10/08/24 05:09 POC Glucose 165 mg/dl (70-106) White Blood Count 9.4 10^3/uL (4.4-10.8) Red Blood Count 5.09 10^6/uL (4.5-5.90) Hemoglobin 15.4 g/dL (13.5-17.5) Hematocrit 44.4 % (41.0-53.0) Mean Corpuscular Volume 87.1 fL (80.0-100.0) Mean Corpuscular Hemoglobin 30.2 pg (28.0-32.0) Mean Corpuscular Hemoglobin Concent 34.6 g/dL (32.0-36.0) Red Cell Distribution Width 13.3 % (11.8-14.3) Platelet Count 109 10^3/uL (140-450) Mean Platelet Volume 10.8 fL (6.9-10.8) Neutrophils (%) (Auto) 73.8 % (37.0-80.0) Lymphocytes (%) (Auto) 16.3 % (10.0-50.0) Monocytes (%) (Auto) 8.1 % (0.0-12.0) Eosinophils (%) (Auto) 1.3 % (0.0-7.0) Basophils (%) (Auto) 0.5 % (0.0-2.0) Neutrophils # (Auto) 7.0 10 ^3/uL (1.6-8.6) Lymphocytes # (Auto) 1.5 10 ^3/uL (0.4-5.4) Monocytes # (Auto) 0.8 10 ^3/uL (0-1.3) Eosinophils # (Auto) 0.1 10 ^3/uL (0-0.8) Basophils # (Auto) 0 10 ^3/uL (0-0.2) Nucleated Red Blood Cells 0.0 % Sodium Level 140 mmol/L (136-145) Potassium Level 4.0 mmol/L (3.5-5.1) Chloride Level 107 mmol/L (98-107) Carbon Dioxide Level 23 mmol/L (20-31) Anion Gap 10 (5-15) Blood Urea Nitrogen 17 mg/dL (9-23) Creatinine 0.62 mg/dL (0.700-1.30) Glomerular Filtration Rate Calc 119 mL/min (>90) BUN/Creatinine Ratio 27.4 (10.0-20.0) Serum Glucose 180 mg/dL (74-106) Calcium Level 9.3 mg/dL (8.7-10.4) D-Dimer, Quantitative 10.62 mg/L FEU (0.0-0.49) Troponin I High Sensitivity 381 ng/L (</=54) Test 10/08/24 05:04 10/07/24 16:06 10/07/24 07:47 10/07/24 07:24 Total Bilirubin 0.4 mg/dL (0.2-1.0) Aspartate Amino Transferase (AST) 19 U/L (13-40) Alanine Aminotransferase (ALT) 24 U/L (7-40) Alkaline Phosphatase 63 U/L (46-116) Total Protein 6.1 g/dL (5.7-8.2) Albumin 3.7 g/dL (3.2-4.8) Lactic Acid Level 1.2 mmol/L (0.4-2.0) Influenza Type A Antigen Negative (Negative) Influenza Type B Antigen Negative (Negative) SARS-CoV-2 Antigen (Rapid) Negative (NEGATIVE) Blood Gas Specimen Type Arterial Blood Gas Sample Site Right radial Blood Gas Patient Temperature 37.0 Arterial Blood Date Drawn [id number] Arterial Blood pH 7.195 (7.350-7.450) Arterial Blood Partial Pressure CO2 31.5 mmHg (35.0-48.0) Arterial Blood Partial Pressure O2 127.6 mmHg (83.0-108.0) Arterial Blood HCO3 11.9 mmol/L (21.0-28.0) Arterial Blood Oxygen Saturation 97.8 % (94.0-98.0) Arterial Blood Base Excess -14.9 mmol/L (-2.0-3.0) Arterial Blood Oxyhemoglobin 96.9 % (94.0-98.0) Arterial Blood Carboxyhemoglobin 0.4 % (0.5-1.5) Arterial Blood Methemoglobin 0.5 % (0.0-1.5) Dominic Test Yes Blood Gas Total Hemoglobin 15.90 g/dL (13.5-17.5) Blood Gas Set Respiration Rate 18.0 Blood Gas Modality Mask - bipap FiO2 % 50.0 Blood Gas EPAP 8 Blood Gas IPAP 16 Blood Gas Critical Value Read Back yes Blood Gas Notified Whom Blood Gas Notified Time [id number] Blood Gas Notified By mold swabber rosario Test 10/07/24 07:09 10/07/24 06:17 Urine Color Light-orange (Yellow) Urine Clarity Turbid (Clear) Urine pH 5.5 (5.0-9.0) Urine Specific [place] 1.022 (1.001-1.035) Urine Protein 2+ (Negative) Urine Ketones Negative (Negative) Urine Blood 1+ /uL (Negative) Urine Nitrite Negative (Negative) Urine Bilirubin Negative (Negative) Urine Urobilinogen Normal mg/dL (Negative) Urine Leukocyte Esterase 1+ /uL (Negative) Urine RBC 11 /hpf (0 - 3) Urine WBC Clumps Present /hpf (None Seen) Urine Microscopic WBC 38 /HPF (0-3) Urine Squamous Epithelial Cells Few /hpf (<5) Urine Bacteria Few /hpf (None Seen) Urine Mucus Few (None Seen) Urine Glucose 1+ mg/dL (Normal) Prothrombin Time 13.4 sec (9.3-11.8) Prothrombin Time INR 1.30 (0.9-1.15) B-Type Natriuretic Peptide 3.07 pg/mL (0-100) Beta-Hydroxybutyric Acid 0.566 mmol/L (< 0.4) Thyroid Stimulating Hormone (TSH) 3.41 uIU/mL (0.55-4.78) Other Laboratory Tests 10/09/24 09:15 Brief Hx & Hospital Course: History of Present Illness Stefano Crystal is a 49-year-old male with past medical history of diabetes and hypertension, who came to the hospital for generalized weakness. Patient was recently discharged from the hospital and returns stating he is feeling significantly worse. He states he feels weaker, thirsty, and dry. Course of hospitalization: Patient was given IV hydration, empiric antibiotic therapy. Blood culture has probable contamination with only one set being positive for coagulase negative Staphylococcus. Patient has improvement with leukocytosis. No left shift noted. Patient has been afebrile for the entire hospitalization. 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 Patient states that he has had these pains prior to coming in the hospital. On multiple occasions he has been asking for both IV and oral narcotics for pain. Urinalysis positive for mild UTI. Cardiology consultation was placed for elevated troponins. Attributed to NSTEMI type 2. Patient had echocardiogram on recent admission with normal ejection fraction no valvular disease. Discussion made with the patient regarding all lab work. Patient also had gallbladder ultrasound which did show gallbladder stones without any signs of infection. LFTs are normal. Patient will be discharged home, although hesitant on his part. Patient will have his blood pressure controlled prior to being discharged from the hospital. He will be continued on antibiotic therapy with ciprofloxacin 500 mg p.o. b.i.d.. He is instructed to follow up with his PCP in 1-2 weeks. Patient will also be provided [place] 5/325 q.8 hours as needed for pain not relieved by kebx-nyi-jfrntic NSAIDs. Physical examination General: Alert and Oriented x3. No acute distress. Well-nourished. Eyes: EOMI. Anicteric. HENT: Moist mucous membranes. Lungs: Clear to auscultation bilaterally. No accessory muscle use. Cardiovascular: Regular rate and rhythm. No murmur. No JVD. Abdomen: Soft, non-tender and non-distended. No palpable masses. Extremities: No edema. Non-tender. Skin: No rashes or lesions. Warm. Neurologic: No focal neurological deficits. CN II-XII grossly intact, but not individually tested. Psychiatric: Cooperative. Appropriate mood and affect. Total time spent with patient discussing and formulating plan of care: 35 minutes. This medical document was created using an electronic medical record system with [employer] dictation system. Although this document has been carefully reviewed, there may still be some phonetic and typographical errors. These areas are purely typographical due to imperfections of the software programs, and do not reflect any compromise in the patient's medical care. Consults/Reason for consult Cardiology: Elevated troponin levels Condition at Discharge: Fair Final Diagnosis/Problems List Complicated Cystitis Secondary diagnosis: -leukocytosis, ruled out sepsis -obesity -NSTEMI, questionable type II. Noted left and right bundle-branch block. Troponins trending down -diabetes mellitus -peripheral neuropathy -anxiety disorder -syncope -cholelithiasis Discharge Disposition: Home Discharge Instruct/Medications Diet: Consistent carbohydrate Activity: No Restrictions, As Tolerated Follow Up/Referral: Follow up with PCP in 1-2 weeks Medications: Continue all previous home medications Toprol-XL 25 mg p.o. daily Ciprofloxacin 500 mg p.o. b.i.d. x5 days [place] 5/325 q.8 hours as needed for chiqewil-vw-jifqzx pain Scheduled Ciprofloxacin Hcl (Ciprofloxacin Hcl), 1 TAB PO BID Doxycycline (Monohydrate) (Doxycycline), 100 MG PO BID Gabapentin (Gabapentin), 1 CAP PO TID, (Reported) Hydrocodone-Acetaminophen (Hydrocodone Bitartrate/AC 5-325 mg), 1 TAB PO Q8HR Metoprolol Succinate (Toprol Xl), 1 TAB PO DAILY Nifedipine (Nifedipine Er), 1 TAB PO DAILY 36 Discharge Statement: "Patient was advised to return to the ER or call 911 if any headaches, dizziness, shortness of breath, chest pain, abdominal pain, bleeding, fevers, or worsening of medical condition. Patient was counseled about treatment plan, medications, possible side effects, patientverbalized understanding. All questions were answered to the best of my ability. This discharge took greater then 30 minutes in planning, reviewing documentation, counseling the patient, and discussing with other team members." ASSESSMENT ASSESSMENT Assessment Complicated Cystitis Date of Service: Oct 09, 2024 Billing Provider: TYRON KAUFFMAN NP Common Visit Codes: [id number] DISCH DAY >30min TYRON KAUFFMAN NP Oct 09, 2024 13:42
[2024-10-09] MEDS: LABETALOL HCL 20 MG/4 ML VL IV PRN (17:52)
[2024-10-09] MEDS: DOCUSATE SOD 100 MG CAP PO PRN (17:53)
--- NOTE | 2024-10-09 23:03 | DVHPN2 ---
Progress Note - Dictate Date Seen: Oct 09, 2024 Medical Necessity Reason Pt with a Central, PICC or Fol: No Subjective Patient was seen and evaluated in follow up. Patient was downgraded to telemetry. Patient's BP continued to be trending higher. BS are in the 160's. Telemetry reviewed. vital signs Vital Sign Date Time Temp Pulse Resp B/P (MAP) Pulse Ox O2 Delivery O2 Flow Rate FiO2 10/09/24 12:51 97.7 94 18 172/106 (128) 98 97.7 10/09/24 08:00 Nasal Cannula* 2 28 Total Intake and Output 10/08/24 10/08/24 10/09/24 15:00 23:00 07:00 Intake Total 50 ml 1020 ml 650 ml Output Total 1400 ml 1550 ml Balance 50 ml -380 ml -900 ml medications Current Medications Medications Dose Ordered Sig/Gavin Route Start Time Stop Time Status Last Admin Dose Admin Ondansetron HCl 4 mg Q4HP PRN IV 10/07/24 10:00 10/08/24 12:07 4 MG Enoxaparin Sodium 40 mg DAILY SC 10/07/24 10:15 10/09/24 09:01 40 MG Morphine Sulfate 2 mg Q30M PRN IV 10/07/24 10:00 Acetaminophen/ Hydrocodone Bitart 1 tab Q4HP PRN PO 10/07/24 10:00 10/09/24 09:00 1 TAB Docusate Sodium 100 mg BIDPRN PRN PO 10/07/24 10:00 Acetaminophen 650 mg Q6HP PRN PO 10/07/24 10:00 Nitroglycerin 0.4 mg Q5MINP PRN SL 10/07/24 10:00 Diagnostic Test (Pha) 1 strip ACHS 10/07/24 11:30 10/09/24 12:28 1 STRIP Insulin Human Regular HS SC 10/07/24 22:00 10/08/24 21:18 2 UNITS Insulin Human Regular AC SC 10/07/24 11:30 10/09/24 12:28 3 UNITS Dextrose 50 ml UD PRN IV 10/07/24 10:30 Ceftriaxone Sodium 50 ml @ 100 mls/hr DAILY@09 IV 10/07/24 10:32 10/09/24 08:59 100 MLS/HR Linezolid 300 ml @ 150 mls/hr Q12H IV 10/07/24 16:00 10/09/24 03:56 150 MLS/HR Calcium Carbonate 500 mg Q4HPRN PRN PO 10/07/24 20:45 10/08/24 06:08 500 MG Pantoprazole Sodium 40 mg DAILY@1000 PO 10/08/24 10:00 10/09/24 09:00 40 MG Nifedipine 90 mg DAILY PO 10/09/24 10:00 10/09/24 09:00 90 MG Metoprolol Succinate 50 mg DAILY PO 10/10/24 10:00 UNV objective GENERAL: Alert and oriented x 3. No acute distress. EYES: PERRL, EOMI. Anicteric. HENT: Moist mucous membranes. LUNGS: Clear to auscultation bilaterally. CARDIOVASCULAR: Regular rate and rhythm. ABDOMEN: Soft, non-tender and non-distended. EXTREMITIES: No edema. NEUROLOGIC: No focal neurological deficits. SKIN: Warm, dry. laboratory and microbiology Laboratory Tests 10/09/24 09:15 Test 10/09/24 09:15 Range/Units Serum Glucose 180 H 74-106 mg/dL Problem List Acute kidney injury. Metabolic acidosis. Lactic acidosis. Hypoxic respiratory failure. Possible sepsis. Complicated UTI. Elevated troponin. Leukocytosis. Uncontrolled diabetes. Assessment/Plan Continued all current supportive medical care. Morphine and [place] for pain management. IV antibiotics as ordered. DVT and GI prophylactics. Nitro SL. Metoprolol. Nifedipine. Additional plan as per the hospital course. Plan discussed with: Patient PATSY LUZ MD Oct 09, 2024 13:06
[2024-10-10] VITALS (7 sets, daily range): BP systolic 125–161; BP diastolic 90–112; PULSE 89–95; RESP 18–20; TEMP 97.8–98.9; O2SAT 94–98
[2024-10-10] MEDS: ACETAMINOPHEN 325 MG TAB PO PRN (08:52)
[2024-10-10] MEDS: METOPROLOL SUCCINATE XL 50 MG TAB PO SCH (08:52)
--- NOTE | 2024-10-10 12:53 | DVH ---
Bilateral lower extremity venous duplex Clinical History: rule out dvt Comparison: US RT LOWER DVT on DOS: 09/30/24 Technique: Duplex Doppler evaluation of the deep venous systems of both lower extremities from the common femora l veins to the popliteal veins including color Doppler and spectral/pulsed waveform analysis was perf ormed. Findings: RIGHT SIDE: The common femoral vein demonstrates appropriate compressibility and waveform variability. There is compressibility/patency of the great saphenous vein at the proximal thigh. The femoral vein demonstrates appropriate compressibility and waveform variability. The deep femoral vein demonstrates appropriate compressibility and waveform variability. The popliteal vein demonstrates appropriate compressibility and waveform variability. Thrombus in the right popliteal vein. There is normal compressibility at the tibioperoneal trunk. LEFT SIDE: The common femoral vein demonstrates appropriate compressibility and waveform variability. There is compressibility/patency of the great saphenous vein at the proximal thigh. The femoral vein demonstrates appropriate compressibility and waveform variability. The deep femoral vein demonstrates appropriate compressibility and waveform variability. The popliteal vein demonstrates appropriate compressibility and waveform variability. There is normal compressibility at the tibioperoneal trunk. Impression: Right lower extremity DVT. No DVT left lower extremity 5 cm right bernabe's cyst.
--- NOTE | 2024-10-10 13:43 | DVHPN2 ---
Subjective Patient complaining of generalized abdominal pain Reviewed: Care Plan, H&P, Labs, Medications Changes from previous H/P or p: No Changes General: Per HPI Eyes: No Pain, No Vision change, No Conjunctivae inflammation, No Eyelid inflammation, No Other, No Redness ENT: No Ear pain, No Ear discharge, No Nose pain, No Nose discharge, No Nose congestion, No Mouth pain, No Mouth swelling, No Throat pain, No Throat swelling, No Other Cardiovascular: No Chest Pain, No Palpitations, No Orthopnea, No Paroxysmal Noc. Dyspnea, No Edema, No Lt Headedness, No Other Respiratory: No Cough, No Dry, No Shortness of breath, No SOB with excertion, No Wheezing, No Hemoptysis, No Pleuritic Pain, No Sputum, No Other Gastrointestinal: No Nausea, No Vomiting, No Abdominal Pain, No Diarrhea, No Constipation, No Melena, No Hematochezia, No Other Genitourinary: No Dysuria, No Frequency, No Incontinence, No Hematuria, No Retention, No Other Musculoskeletal: No other, No neck pain, No shoulder pain, No arm pain, No back pain, No hand pain, No leg pain, No foot pain Skin: No Rash, No Lesions, No Jaundice, No Bruising, No Other Objective Vitals Vital Signs Date Time Temp Pulse Resp B/P (MAP) Pulse Ox O2 Delivery O2 Flow Rate FiO2 10/10/24 12:36 98.9 94 19 161/112 (128) 97 98.9 10/10/24 07:30 Nasal Cannula* 2 28 Intake/Output Intake and Output 10/10/24 07:00 Intake Total 1650 ml Output Total 778 ml Balance 872 ml Intake Oral 1600 ml IV Total 50 ml Output Urine Total 778 ml General Appearance: Alert, Oriented X3, Cooperative HEENT: Atraumatic, PERRLA Lungs: Clear to auscultation, Normal air movement Cardiovascular: Normal S1, Normal S2 Musculoskeletal: Normal sensory function, Normal motor function Skin: Dry, Intact Psych/Mental Status: Mental status NL, Mood NL Medications Current Medications Medications Dose Ordered Sig/Gavin Route Start Time Stop Time Status Last Admin Dose Admin Ondansetron HCl 4 mg Q4HP PRN IV 10/07/24 10:00 10/09/24 17:53 4 MG Enoxaparin Sodium 40 mg DAILY SC 10/07/24 10:15 10/10/24 08:53 40 MG Morphine Sulfate 2 mg Q30M PRN IV 10/07/24 10:00 Acetaminophen/ Hydrocodone Bitart 1 tab Q4HP PRN PO 10/07/24 10:00 10/10/24 10:15 1 TAB Docusate Sodium 100 mg BIDPRN PRN PO 10/07/24 10:00 10/09/24 17:53 100 MG Acetaminophen 650 mg Q6HP PRN PO 10/07/24 10:00 10/10/24 08:52 650 MG Nitroglycerin 0.4 mg Q5MINP PRN SL 10/07/24 10:00 Diagnostic Test (Pha) 1 strip ACHS 10/07/24 11:30 10/10/24 12:23 1 STRIP Insulin Human Regular HS SC 10/07/24 22:00 10/09/24 22:04 2 UNITS Insulin Human Regular AC SC 10/07/24 11:30 10/09/24 17:53 3 UNITS Dextrose 50 ml UD PRN IV 10/07/24 10:30 Ceftriaxone Sodium 50 ml @ 100 mls/hr DAILY@09 IV 10/07/24 10:32 10/10/24 08:51 100 MLS/HR Calcium Carbonate 500 mg Q4HPRN PRN PO 10/07/24 20:45 10/10/24 08:52 500 MG Pantoprazole Sodium 40 mg DAILY@1000 PO 10/08/24 10:00 10/10/24 08:52 40 MG Metoprolol Succinate 50 mg DAILY PO 10/10/24 10:00 10/10/24 08:52 50 MG Labetalol HCl 10 mg Q2HPRN PRN IV 10/09/24 13:15 10/10/24 12:22 10 MG Nifedipine 120 mg DAILY PO 10/11/24 10:00 UNV Laboratory Results Laboratory Tests 10/09/24 09:15 Urinalysis Test 10/07/24 07:09 Urine Color Light-orange (Yellow) Urine Clarity Turbid (Clear) H Urine pH 5.5 (5.0-9.0) Urine Specific [place] 1.022 (1.001-1.035) Urine Protein 2+ (Negative) H Urine Ketones Negative (Negative) Urine Blood 1+ /uL (Negative) H Urine Nitrite Negative (Negative) Urine Bilirubin Negative (Negative) Urine Urobilinogen Normal mg/dL (Negative) Urine Leukocyte Esterase 1+ /uL (Negative) Urine RBC 11 /hpf (0 - 3) Urine WBC Clumps Present /hpf (None Seen) Urine Microscopic WBC 38 /HPF (0-3) H Urine Squamous Epithelial Cells Few /hpf (<5) Urine Bacteria Few /hpf (None Seen) H Urine Mucus Few (None Seen) Urine Glucose 1+ mg/dL (Normal) H Microbiology Microbiology Date/Time Source Procedure Growth Status 10/07/24 17:55 Nose MRSA Screen - Final Complete 10/07/24 07:40 Blood Blood Culture - Preliminary Resulted 10/07/24 07:09 Voided Urine Urine Culture - Final Complete Labs and/or images reviewed: Labs reviewed by me, Image(s) reviewed by me Assessment/Plan Assessment/Plan Impression: -leukocytosis, rule out sepsis -obesity -NSTEMI, questionable type II. Noted left and right bundle-branch block. Troponins trending down -diabetes mellitus -peripheral neuropathy -anxiety disorder -syncope -cholelithiasis Plan: Events: Discharge held yesterday. Continues to be hypertensive. D-dimer was found to be elevated. Pending CT angiogram of the chest results. DVT study negative. Start anticoagulation if noted to be positive for DVT. Check lactic acid level -regular insulin sliding scale -continue empiric antibiotic therapy -repeat blood culture tomorrow -repeat labs in a.m. Total time spent with patient discussing and formulating plan of care: 35 minutes. This medical document was created using an electronic medical record system with [employer] dictation system. Although this document has been carefully reviewed, there may still be some phonetic and typographical errors. These areas are purely typographical due to imperfections of the software programs, and do not reflect any compromise in the patient's medical care. Plan discussed with: Patient, Other (RN) My Orders Orders - TYRON KAUFFMAN NP Procedure Category Date Status Time Transfer Orders XFER 10/09/24 Transmitted 16:49 Pt Request For Service PT 10/09/24 Logged 16:[address] 10/10/24 Taken Contrast 10:59 Bilat Lower Dvt US 10/10/24 Resulted 10:59 Nifedipine Er PHA 10/11/24 Logged (Procardia Xl 10:00 Lactic Acid W/ Reflex LAB 10/10/24 Verified Order 13:34 Enoxaparin Sodium PHA 10/10/24 Verified (Lovenox) 22:00 Date of Service: Oct 10, 2024 Billing Provider: TYRON KAUFFMAN NP Common Visit Codes: [id number] INP/OBS CARE(HIGH) TYRON KAUFFMAN NP Oct 10, 2024 13:43
--- NOTE | 2024-10-10 14:12 | DVH ---
INDICATION: rule out PE TECHNIQUE: Multidetector CTA of the chest was performed of the chest with 100 cc of intravenous contr ast. PULMONARY ANGIOGRAPHY PROTOCOL was utilized using a bolus-tracking technique centered on the karan n pulmonary artery. Axial, coronal and sagittal multiplanar and MIP reformats were performed. Radiation Dose Information: CT Dose: CTDI volume is 25 mGy. Dose-length product is 250 mGy*cm The dose indicators for CT are the volume Computed Tomography (CT) Dose Index (CTDIvol) and the Dose Length Product (DLP), and are measured in units of mGy and mGy-cm, respectively. These indicators are not patient dose, but values generated from the CT scanner acquisition factors. The report includes radiation exposure data for exposures received during this examination. Findings: Pulmonary artery: Moderate saddle embolism with with extension to the right main pulmonary artery, right lower lobe segmental and subsegmental branches. There is extension into the left main pulmonary artery the left upper lobe and lower lobe segmental and subsegmental branches. Right heart strain is noted. Lower neck: Normal thyroid. Lungs: No focal consolidation, pulmonary mass, or suspicious pulmonary nodule. Heart/Vascular Structures: Normal heart size. Normal caliber and enhancement of the aorta. Lymph Nodes: No adenopathy Pleura: No pleural effusion or significant pneumothorax. Musculoskeletal: No acute osseous abnormality. Upper abdomen: Gallstones are noted IMPRESSION: Moderate saddle embolism with with extension to the right main pulmonary artery, right lower lobe se gmental and subsegmental branches. There is extension into the left main pulmonary artery the left up per lobe and lower lobe segmental and subsegmental branches. Right heart strain is noted. Correlate with ECHO. Gallstones Critical Result: Pumonary Emboli Findings discussed with TYRON KAUFFMAN at 10/10/2024 02:07 PM, and acknowledged receipt and unders tanding of the findings.
[2024-10-10] MEDS ORDERED: HEPARIN SODIUM (PORCINE) 5000 UNITS/ML 1ML VIAL IV ONE (14:15)
[2024-10-10] MEDS: MORPHINE SULFATE INJ 2 MG/ml SYRG IV PRN (15:13)
[2024-10-10 15:30] LABS: Hematocrit 45.1 % (41.0-53.0); Hemoglobin 15.4 g/dL (13.5-17.5); Mean Corpuscular Hemoglobin 30.3 pg (28.0-32.0); Mean Corpuscular Volume 88.6 fL (80.0-100.0); Nucleated Red Blood Cells % 0.1 %
--- NOTE | 2024-10-10 15:34 | CONS ---
Pharmacy Clinical Information: PATIENT WAS PREVIOUSLY ON ENOXAPARIN 40MG SC DAILY; LAST DOSE WAS 10/10 @0853 PER PROTOCOL, NO BOLUS, HEPARIN DRIP TO START 10/10 @1900 INITIAL RATE TO BE 2000 UNITS/HR PER PATIENT BEDSCALE WEIGHT OF 151.9 KG NEXT APTT DRAW SCHEDULED FOR 10/11 @0100 PER RX PROTOCOL SATHISH SKINNER PHARMACIST Oct 10, 2024 15:34
[2024-10-10 15:40] LABS: INR 1.31 (0.9-1.15); Partial Thromboplastin Time 31.6 SEC (24.5-34.5); Prothrombin Time 13.5 sec (9.3-11.8)
[2024-10-10] MEDS: HEPARIN DRIP/D5W 100UNITS/ML 250 ML IV SCH (18:59)
--- NOTE | 2024-10-10 20:28 | DVHPN2 ---
Progress Note - Dictate Date Seen: Oct 10, 2024 Medical Necessity Reason Pt with a Central, PICC or Fol: No Subjective Patient was seen and evaluated in follow up. Patient was downgraded to med/surg. Patient complains of a headache with blurred vision. BP continues to be elevated. vital signs Vital Sign Date Time Temp Pulse Resp B/P (MAP) Pulse Ox O2 Delivery O2 Flow Rate FiO2 10/10/24 12:36 98.9 94 19 161/112 (128) 97 98.9 10/10/24 07:30 Room Air* 0 21 Total Intake and Output 10/09/24 10/09/24 10/10/24 15:00 23:00 07:00 Intake Total 50 ml 800 ml 800 ml Output Total 578 ml 200 ml Balance 50 ml 222 ml 600 ml medications Current Medications Medications Dose Ordered Sig/Gavin Route Start Time Stop Time Status Last Admin Dose Admin Ondansetron HCl 4 mg Q4HP PRN IV 10/07/24 10:00 10/09/24 17:53 4 MG Enoxaparin Sodium 40 mg DAILY SC 10/07/24 10:15 10/10/24 08:53 40 MG Morphine Sulfate 2 mg Q30M PRN IV 10/07/24 10:00 Acetaminophen/ Hydrocodone Bitart 1 tab Q4HP PRN PO 10/07/24 10:00 10/10/24 10:15 1 TAB Docusate Sodium 100 mg BIDPRN PRN PO 10/07/24 10:00 10/09/24 17:53 100 MG Acetaminophen 650 mg Q6HP PRN PO 10/07/24 10:00 10/10/24 08:52 650 MG Nitroglycerin 0.4 mg Q5MINP PRN SL 10/07/24 10:00 Diagnostic Test (Pha) 1 strip ACHS 10/07/24 11:30 10/10/24 12:23 1 STRIP Insulin Human Regular HS SC 10/07/24 22:00 10/09/24 22:04 2 UNITS Insulin Human Regular AC SC 10/07/24 11:30 10/09/24 17:53 3 UNITS Dextrose 50 ml UD PRN IV 10/07/24 10:30 Ceftriaxone Sodium 50 ml @ 100 mls/hr DAILY@09 IV 10/07/24 10:32 10/10/24 08:51 100 MLS/HR Calcium Carbonate 500 mg Q4HPRN PRN PO 10/07/24 20:45 10/10/24 08:52 500 MG Pantoprazole Sodium 40 mg DAILY@1000 PO 10/08/24 10:00 10/10/24 08:52 40 MG Metoprolol Succinate 50 mg DAILY PO 10/10/24 10:00 10/10/24 08:52 50 MG Labetalol HCl 10 mg Q2HPRN PRN IV 10/09/24 13:15 10/10/24 12:22 10 MG Nifedipine 120 mg DAILY PO 10/11/24 10:00 UNV objective GENERAL: Alert and oriented x 3. No acute distress. EYES: PERRL, EOMI. Anicteric. HENT: Moist mucous membranes. LUNGS: Clear to auscultation bilaterally. CARDIOVASCULAR: Regular rate and rhythm. ABDOMEN: Soft, non-tender and non-distended. EXTREMITIES: No edema. NEUROLOGIC: No focal neurological deficits. SKIN: Warm, dry. laboratory and microbiology Laboratory Tests 10/09/24 09:15 Test 10/09/24 09:15 Range/Units Serum Glucose 180 H 74-106 mg/dL Problem List Acute kidney injury. Metabolic acidosis. Lactic acidosis. Hypoxic respiratory failure. Possible sepsis. Complicated UTI. Elevated troponin. Leukocytosis. Uncontrolled diabetes. Assessment/Plan Continued all current supportive medical care. Morphine and [place] for pain management. IV antibiotics as ordered. DVT and GI prophylactics. Nitro SL. Metoprolol. Nifedipine. IV Labetalol for SBP > 150. Additional plan as per the hospital course. Plan discussed with: Patient PATSY LUZ MD Oct 10, 2024 13:37
[2024-10-10] MEDS ORDERED: ENOXAPARIN SOD 150 MG/1 ML SYRINGE SC SCH (22:00)
[2024-10-11] VITALS (7 sets, daily range): BP systolic 132–154; BP diastolic 89–108; PULSE 85–93; RESP 16–21; TEMP 97–98.5; O2SAT 97–98
--- NOTE | 2024-10-11 01:41 | DVHSR ---
APPROVED REPORT EXAM: LIMITED Two-dimensional and M-mode echocardiogram. Blood Pressure: 158/112 mmHg INDICATION Repeat echo to evaluate right heart strain RISK FACTORS Obesity: Height: 6' 2", Weight: 334 DIMENSIONS LVDd4.7 (3.8-5.7cm)LA (2D) (1.9-4.0cm)Aortic Root (2.0-3.7cm) LVDs3.3 (2.5-4.0cm)LA (MM) (1.9-4.0cm)Aortic Cusp Exc (1.5-2.0cm) EF (%) 56.0 (55-70%)Rt. Atrium5.0 (1.9-4.0cm)Asc. Aorta cm IVSd1.0 (0.7-1.1cm)RV (D) (1.8-2.4cm) PWd1.0 (0.7-1.1cm) Mitral Valve MitralMitral Stenosis E/A ratio0.02D MVAcm2 Aortic Valve Aortic ValveAortic Stenosis V11.17m/Amanuel Mean GR.4mmHg V21.27m/Amanuel Peak GR.6mmHg Tricuspid Valve TR Velocity2.00m/s [id number] Other Information Quality : Technically LimitedRhythm : Technically limited study due to body habitus. Conclusion MODERATELY DILATED RV AND RA LV EF IS 65% AND IS NORMAL NORMAL VALVES NO EFFUSION
[2024-10-11 01:50] LABS: INR 1.3 (0.9-1.15); Partial Thromboplastin Time 64.6 SEC (24.5-34.5); Prothrombin Time 13.4 sec (9.3-11.8)
[2024-10-11 12:35] LABS: Hematocrit 46.9 % (41.0-53.0); Hemoglobin 16.4 g/dL (13.5-17.5); Mean Corpuscular Hemoglobin 30.6 pg (28.0-32.0); Mean Corpuscular Volume 87.2 fL (80.0-100.0); Nucleated Red Blood Cells % 0.1 %
[2024-10-11 12:37] LABS: INR 1.31 (0.9-1.15); Partial Thromboplastin Time 66.6 SEC (24.5-34.5); Prothrombin Time 13.5 sec (9.3-11.8)
--- NOTE | 2024-10-11 14:00 | DVHPN2 ---
Subjective Patient complaining of generalized abdominal pain Reviewed: Care Plan, H&P, Labs, Medications Changes from previous H/P or p: No Changes General: Per HPI Eyes: No Pain, No Vision change, No Conjunctivae inflammation, No Eyelid inflammation, No Other, No Redness ENT: No Ear pain, No Ear discharge, No Nose pain, No Nose discharge, No Nose congestion, No Mouth pain, No Mouth swelling, No Throat pain, No Throat swelling, No Other Cardiovascular: No Chest Pain, No Palpitations, No Orthopnea, No Paroxysmal Noc. Dyspnea, No Edema, No Lt Headedness, No Other Respiratory: No Cough, No Dry, No Shortness of breath, No SOB with excertion, No Wheezing, No Hemoptysis, No Pleuritic Pain, No Sputum, No Other Gastrointestinal: No Nausea, No Vomiting, No Abdominal Pain, No Diarrhea, No Constipation, No Melena, No Hematochezia, No Other Genitourinary: No Dysuria, No Frequency, No Incontinence, No Hematuria, No Retention, No Other Musculoskeletal: No other, No neck pain, No shoulder pain, No arm pain, No back pain, No hand pain, No leg pain, No foot pain Skin: No Rash, No Lesions, No Jaundice, No Bruising, No Other Objective Vitals Vital Signs Date Time Temp Pulse Resp B/P (MAP) Pulse Ox O2 Delivery O2 Flow Rate FiO2 10/11/24 13:09 100 20 144/90 10/11/24 09:00 97.7 97 97.7 10/11/24 08:08 Nasal Cannula* 2 28 Intake/Output Intake and Output 10/11/24 07:00 Intake Total 1005 ml Output Total 2410 ml Balance -1405 ml Intake Oral 1005 ml Output Urine Total 2410 ml General Appearance: Alert, Oriented X3, Cooperative HEENT: Atraumatic, PERRLA Lungs: Clear to auscultation, Normal air movement Cardiovascular: Normal S1, Normal S2 Musculoskeletal: Normal sensory function, Normal motor function Skin: Dry, Intact Psych/Mental Status: Mental status NL, Mood NL Medications Current Medications Medications Dose Ordered Sig/Gavin Route Start Time Stop Time Status Last Admin Dose Admin Ondansetron HCl 4 mg Q4HP PRN IV 10/07/24 10:00 10/09/24 17:53 4 MG Morphine Sulfate 2 mg Q30M PRN IV 10/07/24 10:00 Acetaminophen/ Hydrocodone Bitart 1 tab Q4HP PRN PO 10/07/24 10:00 10/10/24 16:48 1 TAB Docusate Sodium 100 mg BIDPRN PRN PO 10/07/24 10:00 10/09/24 17:53 100 MG Acetaminophen 650 mg Q6HP PRN PO 10/07/24 10:00 10/10/24 08:52 650 MG Nitroglycerin 0.4 mg Q5MINP PRN SL 10/07/24 10:00 Diagnostic Test (Pha) 1 strip ACHS 10/07/24 11:30 10/11/24 11:04 1 STRIP Insulin Human Regular HS SC 10/07/24 22:00 10/10/24 22:44 2 UNITS Insulin Human Regular AC SC 10/07/24 11:30 10/11/24 11:17 3 UNITS Dextrose 50 ml UD PRN IV 10/07/24 10:30 Ceftriaxone Sodium 50 ml @ 100 mls/hr DAILY@09 IV 10/07/24 10:32 10/11/24 09:43 100 MLS/HR Calcium Carbonate 500 mg Q4HPRN PRN PO 10/07/24 20:45 10/11/24 09:48 500 MG Pantoprazole Sodium 40 mg DAILY@1000 PO 10/08/24 10:00 10/11/24 09:43 40 MG Metoprolol Succinate 50 mg DAILY PO 10/10/24 10:00 10/11/24 09:42 50 MG Labetalol HCl 10 mg Q2HPRN PRN IV 10/09/24 13:15 10/10/24 15:12 10 MG Nifedipine 120 mg DAILY PO 10/11/24 10:00 10/11/24 09:43 120 MG Heparin Sodium/ Dextrose 250 ml @ 20 mls/hr [id number] IV 10/10/24 19:00 10/11/24 07:19 20 MLS/HR Morphine Sulfate 2 mg Q3HPRN PRN IV 10/10/24 14:15 10/11/24 13:09 2 MG Laboratory Results Laboratory Tests 10/09/24 09:15 10/11/24 11:14 Coagulation Test 10/10/24 15:15 10/11/24 01:21 10/11/24 11:14 Prothrombin Time 13.5 sec (9.3-11.8) H 13.4 sec (9.3-11.8) H 13.5 sec (9.3-11.8) H Prothrombin Time INR 1.31 (0.9-1.15) H 1.30 (0.9-1.15) H 1.31 (0.9-1.15) H Activated Partial Thromboplast Time 31.6 SEC (24.5-34.5) 64.6 SEC (24.5-34.5) H 66.6 SEC (24.5-34.5) H Urinalysis Test 10/07/24 07:09 Urine Color Light-orange (Yellow) Urine Clarity Turbid (Clear) H Urine pH 5.5 (5.0-9.0) Urine Specific [place] 1.022 (1.001-1.035) Urine Protein 2+ (Negative) H Urine Ketones Negative (Negative) Urine Blood 1+ /uL (Negative) H Urine Nitrite Negative (Negative) Urine Bilirubin Negative (Negative) Urine Urobilinogen Normal mg/dL (Negative) Urine Leukocyte Esterase 1+ /uL (Negative) Urine RBC 11 /hpf (0 - 3) Urine WBC Clumps Present /hpf (None Seen) Urine Microscopic WBC 38 /HPF (0-3) H Urine Squamous Epithelial Cells Few /hpf (<5) Urine Bacteria Few /hpf (None Seen) H Urine Mucus Few (None Seen) Urine Glucose 1+ mg/dL (Normal) H Microbiology Microbiology Date/Time Source Procedure Growth Status 10/07/24 17:55 Nose MRSA Screen - Final Complete 10/07/24 07:40 Blood Blood Culture - Final Staphylococcus epidermidis Complete 10/07/24 07:09 Voided Urine Urine Culture - Final Complete Labs and/or images reviewed: Labs reviewed by me, Image(s) reviewed by me Assessment/Plan Assessment/Plan Impression: -leukocytosis, rule out sepsis -obesity -NSTEMI, questionable type II. Noted left and right bundle-branch block. Troponins trending down -diabetes mellitus -peripheral neuropathy -anxiety disorder -syncope -cholelithiasis Plan: Events: Repeat echocardiogram reveals RA and RV dilatation. Lactic acid level within normal limits. Evaluated by interventional radiologist yesterday, no thrombectomy at this time. Continue anticoagulation with heparin over the next 24 hours then transitioned to DOAC -regular insulin sliding scale -continue empiric antibiotic therapy -continue heparin drip -physical therapy -repeat labs in a.m. Total time spent with patient discussing and formulating plan of care: 35 minutes. This medical document was created using an electronic medical record system with [employer] dictation system. Although this document has been carefully reviewed, there may still be some phonetic and typographical errors. These areas are purely typographical due to imperfections of the software programs, and do not reflect any compromise in the patient's medical care. Plan discussed with: Patient, Other (RN) My Orders Orders - TYRON KAUFFMAN NP Procedure Category Date Status Time Platelet Monitoring PIO 10/10/24 In Process 14:14 Vte Protocol Initiated PIO 10/10/24 In Process 14:14 Heparin Per PIO 10/10/24 In Process Standardized Proce 14:14 Discontinue All Im PIO 10/10/24 In Process Injections 14:14 Heparin Drip/D5w PHA 10/10/24 In Process 100units/Ml 19:00 * Radiologist Consult CONS 10/10/24 Transmitted 14:14 Morphine Sulfate PHA 10/10/24 In Process Injection 14:15 Echo 2d Mode Cardiac US 10/10/24 Resulted DOP 14:34 Complete Blood Count LAB 10/12/24 Verified 04:00 PTPTT LAB 10/11/24 Logged 17:00 Heparin Per Pharmacy [facility] 10/11/24 In Process Protocol 12:44 Date of Service: Oct 11, 2024 Billing Provider: TYRON KAUFFMAN NP Common Visit Codes: [id number] INP/OBS CARE(HIGH) TYRON KAUFFMAN NP Oct 11, 2024 14:00
--- NOTE | 2024-10-11 18:23 | DVHPN2 ---
Subjective sob on exertion Denies chest pain Reviewed: Care Plan, H&P, Labs, Medications Changes from previous H/P or p: No Changes General: Per HPI Eyes: No Pain, No Vision change, No Conjunctivae inflammation, No Eyelid inflammation, No Other, No Redness ENT: No Ear pain, No Ear discharge, No Nose pain, No Nose discharge, No Nose congestion, No Mouth pain, No Mouth swelling, No Throat pain, No Throat swelling, No Other Cardiovascular: No Chest Pain, No Palpitations, No Orthopnea, No Paroxysmal Noc. Dyspnea, No Edema, No Lt Headedness, No Other Respiratory: No Cough, No Dry, No Shortness of breath, No SOB with excertion, No Wheezing, No Hemoptysis, No Pleuritic Pain, No Sputum, No Other Gastrointestinal: No Nausea, No Vomiting, No Abdominal Pain, No Diarrhea, No Constipation, No Melena, No Hematochezia, No Other Genitourinary: No Dysuria, No Frequency, No Incontinence, No Hematuria, No Retention, No Other Musculoskeletal: No other, No neck pain, No shoulder pain, No arm pain, No back pain, No hand pain, No leg pain, No foot pain Skin: No Rash, No Lesions, No Jaundice, No Bruising, No Other Objective Vitals Vital Signs Date Time Temp Pulse Resp B/P (MAP) Pulse Ox O2 Delivery O2 Flow Rate FiO2 10/11/24 17:24 91 20 145/92 10/11/24 16:40 97.0 97 97.0 10/11/24 08:08 Nasal Cannula* 2 28 Intake/Output Intake and Output 10/11/24 07:00 Intake Total 1005 ml Output Total 2410 ml Balance -1405 ml Intake Oral 1005 ml Output Urine Total 2410 ml General Appearance: Alert, Oriented X3, Cooperative HEENT: Atraumatic, PERRLA Lungs: Clear to auscultation, Normal air movement Cardiovascular: Normal S1, Normal S2 Musculoskeletal: Normal sensory function, Normal motor function Skin: Dry, Intact Psych/Mental Status: Mental status NL, Mood NL Medications Current Medications Medications Dose Ordered Sig/Gavin Route Start Time Stop Time Status Last Admin Dose Admin Ondansetron HCl 4 mg Q4HP PRN IV 10/07/24 10:00 10/09/24 17:53 Morphine Sulfate 2 mg Q30M PRN IV 10/07/24 10:00 Acetaminophen/ Hydrocodone Bitart 1 tab Q4HP PRN PO 10/07/24 10:00 10/10/24 16:48 Docusate Sodium 100 mg BIDPRN PRN PO 10/07/24 10:00 10/09/24 17:53 Acetaminophen 650 mg Q6HP PRN PO 10/07/24 10:00 10/10/24 08:52 Nitroglycerin 0.4 mg Q5MINP PRN SL 10/07/24 10:00 Diagnostic Test (Pha) 1 strip ACHS 10/07/24 11:30 10/11/24 16:32 Insulin Human Regular HS SC 10/07/24 22:00 10/10/24 22:44 Insulin Human Regular AC SC 10/07/24 11:30 10/11/24 16:45 Dextrose 50 ml UD PRN IV 10/07/24 10:30 Ceftriaxone Sodium 50 ml @ 100 mls/hr DAILY@09 IV 10/07/24 10:32 10/11/24 09:43 Calcium Carbonate 500 mg Q4HPRN PRN PO 10/07/24 20:45 10/11/24 14:54 Pantoprazole Sodium 40 mg DAILY@1000 PO 10/08/24 10:00 10/11/24 09:43 Metoprolol Succinate 50 mg DAILY PO 10/10/24 10:00 10/11/24 09:42 Labetalol HCl 10 mg Q2HPRN PRN IV 10/09/24 13:15 10/10/24 15:12 Nifedipine 120 mg DAILY PO 10/11/24 10:00 10/11/24 09:43 Heparin Sodium/ Dextrose 250 ml @ 20 mls/hr [id number] IV 10/10/24 19:00 10/11/24 07:19 Morphine Sulfate 2 mg Q3HPRN PRN IV 10/10/24 14:15 10/11/24 16:33 Laboratory Results Laboratory Tests 10/09/24 09:15 10/11/24 11:14 Coagulation Test 10/11/24 01:21 10/11/24 11:14 Prothrombin Time 13.4 sec (9.3-11.8) H 13.5 sec (9.3-11.8) H Prothrombin Time INR 1.30 (0.9-1.15) H 1.31 (0.9-1.15) H Activated Partial Thromboplast Time 64.6 SEC (24.5-34.5) H 66.6 SEC (24.5-34.5) H Urinalysis Test 10/07/24 07:09 Urine Color Light-orange (Yellow) Urine Clarity Turbid (Clear) H Urine pH 5.5 (5.0-9.0) Urine Specific [place] 1.022 (1.001-1.035) Urine Protein 2+ (Negative) H Urine Ketones Negative (Negative) Urine Blood 1+ /uL (Negative) H Urine Nitrite Negative (Negative) Urine Bilirubin Negative (Negative) Urine Urobilinogen Normal mg/dL (Negative) Urine Leukocyte Esterase 1+ /uL (Negative) Urine RBC 11 /hpf (0 - 3) Urine WBC Clumps Present /hpf (None Seen) Urine Microscopic WBC 38 /HPF (0-3) H Urine Squamous Epithelial Cells Few /hpf (<5) Urine Bacteria Few /hpf (None Seen) H Urine Mucus Few (None Seen) Urine Glucose 1+ mg/dL (Normal) H Microbiology Microbiology Date/Time Source Procedure Growth Status 10/07/24 17:55 Nose MRSA Screen - Final Complete 10/07/24 07:40 Blood Blood Culture - Final Staphylococcus epidermidis Complete 10/07/24 07:09 Voided Urine Urine Culture - Final Complete Assessment/Plan Assessment/Plan Rule out PE Reviewed echocardiogram with Dr. Caio Luz. Repeat echocardiogram reveals dilation of the right ventricle and right atrium, consistent with right heart strain. 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 Continue heparin infusion for anticoagulation. Plan discussed with: Patient, Other (RN) Date of Service: Oct 11, 2024 Billing Provider: PATSY LUZ MD Common Visit Codes: CONSULT ONLY Consultation Codes: [id number] CONSULT <45MIN ALVINA FONTANEZ TE[employer] Oct 11, 2024 18:23
[2024-10-11 19:46] LABS: INR 1.34 (0.9-1.15); Partial Thromboplastin Time 63.8 SEC (24.5-34.5); Prothrombin Time 13.8 sec (9.3-11.8)
--- NOTE | 2024-10-11 23:32 | DVHPN2 ---
Progress Note - Dictate Date Seen: Oct 11, 2024 Medical Necessity Reason Pt with a Central, PICC or Fol: No Subjective Patient was seen and evaluated in follow up. Patient complains SOB on exertion. Patient denies any chest pain. BP is slowly improving. Patient is on Heparin drip. Telemetry reviewed. vital signs Vital Sign Date Time Temp Pulse Resp B/P (MAP) Pulse Ox O2 Delivery O2 Flow Rate FiO2 10/11/24 13:09 100 20 144/90 10/11/24 09:00 97.7 97 97.7 10/11/24 08:08 Nasal Cannula* 2 28 Total Intake and Output 10/10/24 10/10/24 10/11/24 15:00 23:00 07:00 Intake Total 380 ml 625 ml Output Total 1600 ml 810 ml Balance -1220 ml -185 ml medications Current Medications Medications Dose Ordered Sig/Gavin Route Start Time Stop Time Status Last Admin Dose Admin Ondansetron HCl 4 mg Q4HP PRN IV 10/07/24 10:00 10/09/24 17:53 4 MG Morphine Sulfate 2 mg Q30M PRN IV 10/07/24 10:00 Acetaminophen/ Hydrocodone Bitart 1 tab Q4HP PRN PO 10/07/24 10:00 10/10/24 16:48 1 TAB Docusate Sodium 100 mg BIDPRN PRN PO 10/07/24 10:00 10/09/24 17:53 100 MG Acetaminophen 650 mg Q6HP PRN PO 10/07/24 10:00 10/10/24 08:52 650 MG Nitroglycerin 0.4 mg Q5MINP PRN SL 10/07/24 10:00 Diagnostic Test (Pha) 1 strip ACHS 10/07/24 11:30 10/11/24 11:04 1 STRIP Insulin Human Regular HS SC 10/07/24 22:00 10/10/24 22:44 2 UNITS Insulin Human Regular AC SC 10/07/24 11:30 10/11/24 11:17 3 UNITS Dextrose 50 ml UD PRN IV 10/07/24 10:30 Ceftriaxone Sodium 50 ml @ 100 mls/hr DAILY@09 IV 10/07/24 10:32 10/11/24 09:43 100 MLS/HR Calcium Carbonate 500 mg Q4HPRN PRN PO 10/07/24 20:45 10/11/24 09:48 500 MG Pantoprazole Sodium 40 mg DAILY@1000 PO 10/08/24 10:00 10/11/24 09:43 40 MG Metoprolol Succinate 50 mg DAILY PO 10/10/24 10:00 10/11/24 09:42 50 MG Labetalol HCl 10 mg Q2HPRN PRN IV 10/09/24 13:15 10/10/24 15:12 10 MG Nifedipine 120 mg DAILY PO 10/11/24 10:00 10/11/24 09:43 120 MG Heparin Sodium/ Dextrose 250 ml @ 20 mls/hr [id number] IV 10/10/24 19:00 10/11/24 07:19 20 MLS/HR Morphine Sulfate 2 mg Q3HPRN PRN IV 10/10/24 14:15 10/11/24 13:09 2 MG objective GENERAL: Alert and oriented x 3. No acute distress. EYES: PERRL, EOMI. Anicteric. HENT: Moist mucous membranes. LUNGS: Clear to auscultation bilaterally. CARDIOVASCULAR: Regular rate and rhythm. ABDOMEN: Soft, non-tender and non-distended. EXTREMITIES: No edema. NEUROLOGIC: No focal neurological deficits. SKIN: Warm, dry. laboratory and microbiology Laboratory Tests 10/11/24 11:14 10/09/24 09:15 Test 10/09/24 09:15 Range/Units Serum Glucose 180 H 74-106 mg/dL Problem List Rule out PE. Acute kidney injury. Metabolic acidosis. Lactic acidosis. Hypoxic respiratory failure. Possible sepsis. Complicated UTI. Elevated troponin. Leukocytosis. Uncontrolled diabetes. Assessment/Plan Continued all current supportive medical care. Patient has been seen by Caroline Conner NP on my behalf, her and I discussed the plan with the patient. [employer] TECHNICIAN Caroline Conner reviewed patient's echocardiogram with me. Repeat echocardiogram reveals dilation of the right ventricle and right atrium, consistent with right heart strain. 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 Continue heparin infusion for anticoagulation. Additional plan as per the hospital course. Visit Coding Cardiology Date of Service: Oct 11, 2024 Billing Provider: PATSY LUZ MD Cardiology Common Codes: [id number] HOSP CARE(High Plan discussed with: Patient PATSY LUZ MD Oct 11, 2024 14:03
[2024-10-12] VITALS (8 sets, daily range): BP systolic 115–152; BP diastolic 83–100; PULSE 70–86; RESP 16–20; TEMP 96.9–98.2; O2SAT 97–100
[2024-10-12 01:32] LABS: INR 1.3 (0.9-1.15); Partial Thromboplastin Time 41.6 SEC (24.5-34.5); Prothrombin Time 13.4 sec (9.3-11.8)
[2024-10-12] MEDS: HEPARIN DRIP/D5W 100UNITS/ML 250 ML IV SCH (02:54)
[2024-10-12 07:52] LABS: Hematocrit 46.1 % (41.0-53.0); Hemoglobin 15.9 g/dL (13.5-17.5); Mean Corpuscular Hemoglobin 30.1 pg (28.0-32.0); Mean Corpuscular Volume 87.0 fL (80.0-100.0); Nucleated Red Blood Cells % 0.1 %
[2024-10-12 08:49] LABS: INR 1.34 (0.9-1.15); Prothrombin Time 13.8 sec (9.3-11.8)
[2024-10-12 09:05] LABS: Partial Thromboplastin Time 103.5 SEC (24.5-34.5)
--- NOTE | 2024-10-12 09:08 | MEDREC ---
[facility] [facility] Intervention Section I [facility] Intervention: Review courses of therapy (PLEASE CONSIDER D/C ANTIBIOTIC IN ABSENCE OF BACTERIAL INFECTION) VELASQUEZ LUQUE PHARMACIST Oct 12, 2024 09:08
[2024-10-12] MEDS ORDERED: HEPARIN DRIP/D5W 100UNITS/ML 250 ML IV SCH ×2 (10:00→10:15)
[2024-10-12] MEDS: cefTRIAXone 1GM/50ML D5W 50 ML IV SCH (10:15)
--- NOTE | 2024-10-12 10:15 | DVHPN2 ---
Subjective Patient states that his breathing has improved. Reviewed: Care Plan, H&P, Labs, Medications Changes from previous H/P or p: No Changes General: Per HPI Eyes: No Pain, No Vision change, No Conjunctivae inflammation, No Eyelid inflammation, No Other, No Redness ENT: No Ear pain, No Ear discharge, No Nose pain, No Nose discharge, No Nose congestion, No Mouth pain, No Mouth swelling, No Throat pain, No Throat swelling, No Other Cardiovascular: No Chest Pain, No Palpitations, No Orthopnea, No Paroxysmal Noc. Dyspnea, No Edema, No Lt Headedness, No Other Respiratory: No Cough, No Dry, No Shortness of breath, No SOB with excertion, No Wheezing, No Hemoptysis, No Pleuritic Pain, No Sputum, No Other Gastrointestinal: No Nausea, No Vomiting, No Abdominal Pain, No Diarrhea, No Constipation, No Melena, No Hematochezia, No Other Genitourinary: No Dysuria, No Frequency, No Incontinence, No Hematuria, No Retention, No Other Musculoskeletal: No other, No neck pain, No shoulder pain, No arm pain, No back pain, No hand pain, No leg pain, No foot pain Skin: No Rash, No Lesions, No Jaundice, No Bruising, No Other Objective Vitals Vital Signs Date Time Temp Pulse Resp B/P (MAP) Pulse Ox O2 Delivery O2 Flow Rate FiO2 10/12/24 09:00 96.9 83 20 143/97 (112) 99 96.9 10/12/24 08:05 Nasal Cannula* 2 28 Intake/Output Intake and Output 10/12/24 07:00 Intake Total 930 ml Output Total 1115 ml Balance -185 ml Intake Oral 630 ml IV Total 300 ml Output Urine Total 1115 ml General Appearance: Alert, Oriented X3, Cooperative HEENT: Atraumatic, PERRLA Lungs: Clear to auscultation, Normal air movement Cardiovascular: Normal S1, Normal S2 Musculoskeletal: Normal sensory function, Normal motor function Skin: Dry, Intact Psych/Mental Status: Mental status NL, Mood NL Medications Current Medications Medications Dose Ordered Sig/Gavin Route Start Time Stop Time Status Last Admin Dose Admin Ondansetron HCl 4 mg Q4HP PRN IV 10/07/24 10:00 10/09/24 17:53 4 MG Morphine Sulfate 2 mg Q30M PRN IV 10/07/24 10:00 Acetaminophen/ Hydrocodone Bitart 1 tab Q4HP PRN PO 10/07/24 10:00 10/10/24 16:48 1 TAB Docusate Sodium 100 mg BIDPRN PRN PO 10/07/24 10:00 10/09/24 17:53 100 MG Acetaminophen 650 mg Q6HP PRN PO 10/07/24 10:00 10/10/24 08:52 650 MG Nitroglycerin 0.4 mg Q5MINP PRN SL 10/07/24 10:00 Diagnostic Test (Pha) 1 strip ACHS 10/07/24 11:30 10/12/24 06:22 1 STRIP Insulin Human Regular HS SC 10/07/24 22:00 10/11/24 22:26 3 UNITS Insulin Human Regular AC SC 10/07/24 11:30 10/12/24 06:22 3 UNITS Dextrose 50 ml UD PRN IV 10/07/24 10:30 Calcium Carbonate 500 mg Q4HPRN PRN PO 10/07/24 20:45 10/12/24 05:29 500 MG Pantoprazole Sodium 40 mg DAILY@1000 PO 10/08/24 10:00 10/12/24 08:56 40 MG Metoprolol Succinate 50 mg DAILY PO 10/10/24 10:00 10/12/24 08:54 50 MG Labetalol HCl 10 mg Q2HPRN PRN IV 10/09/24 13:15 10/10/24 15:12 10 MG Nifedipine 120 mg DAILY PO 10/11/24 10:00 10/12/24 08:53 120 MG Morphine Sulfate 2 mg Q3HPRN PRN IV 10/10/24 14:15 10/12/24 08:52 2 MG Ceftriaxone Sodium 50 ml @ 100 mls/hr DAILY@09 IV 10/12/24 10:15 10/12/24 20:00 UNV Heparin Sodium/ Dextrose 250 ml @ 19 mls/hr [id number] IV 10/12/24 10:15 UNV Apixaban 10 mg BID PO 10/12/24 22:00 10/19/24 21:59 UNV Apixaban 5 mg BID PO 10/12/24 22:00 UNV Laboratory Results Laboratory Tests 10/09/24 09:15 10/12/24 07:09 Coagulation Test 10/11/24 11:14 10/11/24 18:49 10/12/24 01:09 10/12/24 07:09 Prothrombin Time 13.5 sec (9.3-11.8) H 13.8 sec (9.3-11.8) H 13.4 sec (9.3-11.8) H 13.8 sec (9.3-11.8) H Prothrombin Time INR 1.31 (0.9-1.15) H 1.34 (0.9-1.15) H 1.30 (0.9-1.15) H 1.34 (0.9-1.15) H Activated Partial Thromboplast Time 66.6 SEC (24.5-34.5) H 63.8 SEC (24.5-34.5) H 41.6 SEC (24.5-34.5) H 103.5 SEC (24.5-34.5) *H Urinalysis Test 10/07/24 07:09 Urine Color Light-orange (Yellow) Urine Clarity Turbid (Clear) H Urine pH 5.5 (5.0-9.0) Urine Specific [place] 1.022 (1.001-1.035) Urine Protein 2+ (Negative) H Urine Ketones Negative (Negative) Urine Blood 1+ /uL (Negative) H Urine Nitrite Negative (Negative) Urine Bilirubin Negative (Negative) Urine Urobilinogen Normal mg/dL (Negative) Urine Leukocyte Esterase 1+ /uL (Negative) Urine RBC 11 /hpf (0 - 3) Urine WBC Clumps Present /hpf (None Seen) Urine Microscopic WBC 38 /HPF (0-3) H Urine Squamous Epithelial Cells Few /hpf (<5) Urine Bacteria Few /hpf (None Seen) H Urine Mucus Few (None Seen) Urine Glucose 1+ mg/dL (Normal) H Microbiology Microbiology Date/Time Source Procedure Growth Status 10/07/24 17:55 Nose MRSA Screen - Final Complete 10/07/24 07:40 Blood Blood Culture - Final Staphylococcus epidermidis Complete 10/07/24 07:09 Voided Urine Urine Culture - Final Complete Labs and/or images reviewed: Labs reviewed by me, Image(s) reviewed by me Assessment/Plan Assessment/Plan Impression: -leukocytosis, rule out sepsis -obesity -NSTEMI, questionable type II. Noted left and right bundle-branch block. Troponins trending down -diabetes mellitus -peripheral neuropathy -anxiety disorder -syncope -cholelithiasis Plan: Events: No events overnight. Wean off heparin drip this evening, transitioned to Eliquis. -regular insulin sliding scale -stop antibiotic therapy -physical therapy -repeat labs in a.m. Total time spent with patient discussing and formulating plan of care: 35 minutes. This medical document was created using an electronic medical record system with [employer] dictation system. Although this document has been carefully reviewed, there may still be some phonetic and typographical errors. These areas are purely typographical due to imperfections of the software programs, and do not reflect any compromise in the patient's medical care. Plan discussed with: Patient, Other (RN) My Orders Orders - TYRON KAUFFMAN NP Procedure Category Date Status Time Heparin Per Pharmacy [facility] 10/11/24 In Process Protocol 12:44 Transfer Orders XFER 10/11/24 Transmitted 14:57 Heparin Per Pharmacy [facility] 10/11/24 In Process Protocol 19:51 Heparin Per Pharmacy [facility] 10/12/24 In Process Protocol 01:42 PTPTT LAB 10/12/24 Logged 14:00 Complete Blood Count LAB 10/13/24 Verified 04:00 Ceftriaxone 1gm/50ml PHA 10/12/24 Logged D5w (Rocephin) 10:15 Heparin Drip/D5w PHA 10/12/24 Logged 100units/Ml 10:15 Apixaban (Eliquis) PHA 10/12/24 Logged 22:00 Apixaban (Eliquis) PHA 10/12/24 Logged 22:00 Date of Service: Oct 12, 2024 Billing Provider: TYRON KAUFFMAN NP Common Visit Codes: [id number] INP/OBS CARE(HIGH) TYRON KAUFFMAN NP Oct 12, 2024 10:15
[2024-10-12] MEDS: APIXABAN 5 MG TAB PO SCH (10:46)
--- NOTE | 2024-10-12 23:53 | DVHPN2 ---
Progress Note - Dictate Date Seen: Oct 12, 2024 Medical Necessity Reason Pt with a Central, PICC or Fol: No Subjective Patient was seen and evaluated in follow up. Patient is on 2 LPM NC. Patient is complaining of generalized discomfort. Patient on heparin drip. Telemetry reviewed. vital signs Vital Sign Date Time Temp Pulse Resp B/P (MAP) Pulse Ox O2 Delivery O2 Flow Rate FiO2 10/12/24 19:53 83 20 127/83 10/12/24 17:00 97.0 98 97.0 10/12/24 08:05 Nasal Cannula* 2 28 Total Intake and Output 10/11/24 10/11/24 10/12/24 15:00 23:00 07:00 Intake Total 300 ml 430 ml 200 ml Output Total 600 ml 515 ml Balance 300 ml -170 ml -315 ml medications Current Medications Medications Dose Ordered Sig/Gavin Route Start Time Stop Time Status Last Admin Dose Admin Ondansetron HCl 4 mg Q4HP PRN IV 10/07/24 10:00 10/09/24 17:53 4 MG Morphine Sulfate 2 mg Q30M PRN IV 10/07/24 10:00 Acetaminophen/ Hydrocodone Bitart 1 tab Q4HP PRN PO 10/07/24 10:00 10/10/24 16:48 1 TAB Docusate Sodium 100 mg BIDPRN PRN PO 10/07/24 10:00 10/09/24 17:53 100 MG Acetaminophen 650 mg Q6HP PRN PO 10/07/24 10:00 10/10/24 08:52 650 MG Nitroglycerin 0.4 mg Q5MINP PRN SL 10/07/24 10:00 Diagnostic Test (Pha) 1 strip ACHS 10/07/24 11:30 10/12/24 16:46 1 STRIP Insulin Human Regular HS SC 10/07/24 22:00 10/11/24 22:26 3 UNITS Insulin Human Regular AC SC 10/07/24 11:30 10/12/24 17:04 2 UNITS Dextrose 50 ml UD PRN IV 10/07/24 10:30 Calcium Carbonate 500 mg Q4HPRN PRN PO 10/07/24 20:45 10/12/24 19:52 500 MG Pantoprazole Sodium 40 mg DAILY@1000 PO 10/08/24 10:00 10/12/24 08:56 40 MG Metoprolol Succinate 50 mg DAILY PO 10/10/24 10:00 10/12/24 08:54 50 MG Labetalol HCl 10 mg Q2HPRN PRN IV 10/09/24 13:15 10/10/24 15:12 10 MG Nifedipine 120 mg DAILY PO 10/11/24 10:00 10/12/24 08:53 120 MG Morphine Sulfate 2 mg Q3HPRN PRN IV 10/10/24 14:15 10/12/24 19:53 2 MG Apixaban 10 mg BID PO 10/12/24 10:00 10/18/24 22:01 10/12/24 10:46 10 MG Apixaban 5 mg BID PO 10/19/24 10:00 objective GENERAL: Alert and oriented x 3. No acute distress. EYES: PERRL, EOMI. Anicteric. HENT: Moist mucous membranes. LUNGS: Clear to auscultation bilaterally. CARDIOVASCULAR: Regular rate and rhythm. ABDOMEN: Soft, non-tender and non-distended. EXTREMITIES: No edema. NEUROLOGIC: No focal neurological deficits. SKIN: Warm, dry. laboratory and microbiology Laboratory Tests 10/12/24 07:09 10/09/24 09:15 Test 10/09/24 09:15 Range/Units Serum Glucose 180 H 74-106 mg/dL Problem List Rule out PE. Acute kidney injury. Metabolic acidosis. Lactic acidosis. Hypoxic respiratory failure. Possible sepsis. Complicated UTI. Elevated troponin. Leukocytosis. Uncontrolled diabetes. Assessment/Plan Continued all current supportive medical care. Eliquis. Nifedipine. IV Labetalol for SBP > 150. Metoprolol. GI prophylactics. Morphine ad [place] for pain management. IV antibiotics as ordered. Hepatin drip. Additional plan as per the hospital course. Dietary Evaluation Review Comments: Nutrition Recommendation 1) CCHO 75gm + 2gm Na diet 2) Refer [employer] for diabetes education Expected Outcomes/Goals: To meet >75% estimated needs Fu 3-5 days Plan discussed with: Patient PATSY LUZ MD Oct 12, 2024 19:58
[2024-10-13] VITALS (8 sets, daily range): BP systolic 127–154; BP diastolic 79–93; PULSE 72–132; RESP 15–18; TEMP 97.3–98.3; O2SAT 98–100
[2024-10-13 10:41] LABS: Hematocrit 46.0 % (41.0-53.0); Hemoglobin 15.7 g/dL (13.5-17.5); Mean Corpuscular Hemoglobin 30.0 pg (28.0-32.0); Mean Corpuscular Volume 87.9 fL (80.0-100.0); Nucleated Red Blood Cells % 0.2 %
--- NOTE | 2024-10-13 10:45 | DVHPN2 ---
Subjective Patient states that his breathing has improved. Reviewed: Care Plan, H&P, Labs, Medications Changes from previous H/P or p: No Changes General: Per HPI Eyes: No Pain, No Vision change, No Conjunctivae inflammation, No Eyelid inflammation, No Other, No Redness ENT: No Ear pain, No Ear discharge, No Nose pain, No Nose discharge, No Nose congestion, No Mouth pain, No Mouth swelling, No Throat pain, No Throat swelling, No Other Cardiovascular: No Chest Pain, No Palpitations, No Orthopnea, No Paroxysmal Noc. Dyspnea, No Edema, No Lt Headedness, No Other Respiratory: No Cough, No Dry, No Shortness of breath, No SOB with excertion, No Wheezing, No Hemoptysis, No Pleuritic Pain, No Sputum, No Other Gastrointestinal: No Nausea, No Vomiting, No Abdominal Pain, No Diarrhea, No Constipation, No Melena, No Hematochezia, No Other Genitourinary: No Dysuria, No Frequency, No Incontinence, No Hematuria, No Retention, No Other Musculoskeletal: No other, No neck pain, No shoulder pain, No arm pain, No back pain, No hand pain, No leg pain, No foot pain Skin: No Rash, No Lesions, No Jaundice, No Bruising, No Other Objective Vitals Vital Signs Date Time Temp Pulse Resp B/P (MAP) Pulse Ox O2 Delivery O2 Flow Rate FiO2 10/13/24 09:05 141/90 10/13/24 08:42 82 16 10/13/24 05:00 97.9 99 97.9 10/12/24 20:00 Nasal Cannula* 2 28 Intake/Output Intake and Output 10/13/24 07:00 Intake Total 350 ml Output Total 890 ml Balance -540 ml Intake Oral 300 ml IV Total 50 ml Output Urine Total 890 ml General Appearance: Alert, Oriented X3, Cooperative HEENT: Atraumatic, PERRLA Lungs: Clear to auscultation, Normal air movement Cardiovascular: Normal S1, Normal S2 Musculoskeletal: Normal sensory function, Normal motor function Skin: Dry, Intact Psych/Mental Status: Mental status NL, Mood NL Medications Current Medications Medications Dose Ordered Sig/Gavin Route Start Time Stop Time Status Last Admin Dose Admin Ondansetron HCl 4 mg Q4HP PRN IV 10/07/24 10:00 10/09/24 17:53 4 MG Morphine Sulfate 2 mg Q30M PRN IV 10/07/24 10:00 Acetaminophen/ Hydrocodone Bitart 1 tab Q4HP PRN PO 10/07/24 10:00 10/12/24 22:03 1 TAB Docusate Sodium 100 mg BIDPRN PRN PO 10/07/24 10:00 10/09/24 17:53 100 MG Acetaminophen 650 mg Q6HP PRN PO 10/07/24 10:00 10/10/24 08:52 650 MG Nitroglycerin 0.4 mg Q5MINP PRN SL 10/07/24 10:00 Diagnostic Test (Pha) 1 strip ACHS 10/07/24 11:30 10/13/24 06:17 1 STRIP Insulin Human Regular HS SC 10/07/24 22:00 10/12/24 22:09 2 UNITS Insulin Human Regular AC SC 10/07/24 11:30 10/12/24 17:04 2 UNITS Dextrose 50 ml UD PRN IV 10/07/24 10:30 Calcium Carbonate 500 mg Q4HPRN PRN PO 10/07/24 20:45 10/12/24 19:52 500 MG Pantoprazole Sodium 40 mg DAILY@1000 PO 10/08/24 10:00 10/13/24 08:40 40 MG Metoprolol Succinate 50 mg DAILY PO 10/10/24 10:00 10/13/24 08:39 50 MG Labetalol HCl 10 mg Q2HPRN PRN IV 10/09/24 13:15 10/10/24 15:12 10 MG Nifedipine 120 mg DAILY PO 10/11/24 10:00 10/13/24 09:05 120 MG Morphine Sulfate 2 mg Q3HPRN PRN IV 10/10/24 14:15 10/13/24 08:42 2 MG Apixaban 10 mg BID PO 10/12/24 10:00 10/18/24 22:01 10/13/24 08:40 10 MG Apixaban 5 mg BID PO 10/19/24 10:00 Laboratory Results Laboratory Tests 10/09/24 09:15 Urinalysis Test 10/07/24 07:09 Urine Color Light-orange (Yellow) Urine Clarity Turbid (Clear) H Urine pH 5.5 (5.0-9.0) Urine Specific [place] 1.022 (1.001-1.035) Urine Protein 2+ (Negative) H Urine Ketones Negative (Negative) Urine Blood 1+ /uL (Negative) H Urine Nitrite Negative (Negative) Urine Bilirubin Negative (Negative) Urine Urobilinogen Normal mg/dL (Negative) Urine Leukocyte Esterase 1+ /uL (Negative) Urine RBC 11 /hpf (0 - 3) Urine WBC Clumps Present /hpf (None Seen) Urine Microscopic WBC 38 /HPF (0-3) H Urine Squamous Epithelial Cells Few /hpf (<5) Urine Bacteria Few /hpf (None Seen) H Urine Mucus Few (None Seen) Urine Glucose 1+ mg/dL (Normal) H Microbiology Microbiology Date/Time Source Procedure Growth Status 10/07/24 17:55 Nose MRSA Screen - Final Complete 10/07/24 07:40 Blood Blood Culture - Final Staphylococcus epidermidis Complete 10/07/24 07:09 Voided Urine Urine Culture - Final Complete Labs and/or images reviewed: Labs reviewed by me, Image(s) reviewed by me Assessment/Plan Assessment/Plan Impression: -leukocytosis, rule out sepsis -obesity -NSTEMI, questionable type II. Noted left and right bundle-branch block. Troponins trending down -diabetes mellitus -peripheral neuropathy -anxiety disorder -syncope -cholelithiasis Plan: Events: No events overnight. -regular insulin sliding scale -PUD prophylaxis -physical therapy -repeat labs in a.m. Total time spent with patient discussing and formulating plan of care: 35 minutes. This medical document was created using an electronic medical record system with [employer] dictation system. Although this document has been carefully reviewed, there may still be some phonetic and typographical errors. These areas are purely typographical due to imperfections of the software programs, and do not reflect any compromise in the patient's medical care. Plan discussed with: Patient, Other (RN) Date of Service: Oct 13, 2024 Billing Provider: TYRON KAUFFMAN NP Common Visit Codes: [id number] INP/OBS CARE(HIGH) TYRON KAUFFMAN NP Oct 13, 2024 10:45
--- NOTE | 2024-10-13 23:55 | DVHPN2 ---
Progress Note - Dictate Date Seen: Oct 13, 2024 Medical Necessity Reason Pt with a Central, PICC or Fol: No Subjective Patient was seen and evaluated in follow up. No overnight events. Patient is on 2 LPM NC. Patient denies any complaints. CBC and CMP are unremarkable. Remains on heparin drip, will be transitioned to Eliquis. Telemetry reviewed. vital signs Vital Sign Date Time Temp Pulse Resp B/P (MAP) Pulse Ox O2 Delivery O2 Flow Rate FiO2 10/13/24 21:00 98.0 83 15 127/79 (95) 98 98.0 10/13/24 20:00 Nasal Cannula* 2 28 Total Intake and Output 10/12/24 10/12/24 10/13/24 15:00 23:00 07:00 Intake Total 50 ml 200 ml 100 ml Output Total 450 ml 440 ml Balance 50 ml -250 ml -340 ml medications Current Medications Medications Dose Ordered Sig/Gavin Route Start Time Stop Time Status Last Admin Dose Admin Ondansetron HCl 4 mg Q4HP PRN IV 10/07/24 10:00 10/09/24 17:53 4 MG Morphine Sulfate 2 mg Q30M PRN IV 10/07/24 10:00 Acetaminophen/ Hydrocodone Bitart 1 tab Q4HP PRN PO 10/07/24 10:00 10/13/24 23:26 1 TAB Docusate Sodium 100 mg BIDPRN PRN PO 10/07/24 10:00 10/09/24 17:53 100 MG Acetaminophen 650 mg Q6HP PRN PO 10/07/24 10:00 10/10/24 08:52 650 MG Nitroglycerin 0.4 mg Q5MINP PRN SL 10/07/24 10:00 Diagnostic Test (Pha) 1 strip ACHS 10/07/24 11:30 10/13/24 21:32 1 STRIP Insulin Human Regular HS SC 10/07/24 22:00 10/13/24 21:47 3 UNITS Insulin Human Regular AC SC 10/07/24 11:30 10/13/24 17:49 2 UNITS Dextrose 50 ml UD PRN IV 10/07/24 10:30 Calcium Carbonate 500 mg Q4HPRN PRN PO 10/07/24 20:45 10/13/24 19:48 500 MG Pantoprazole Sodium 40 mg DAILY@1000 PO 10/08/24 10:00 10/13/24 08:40 40 MG Metoprolol Succinate 50 mg DAILY PO 10/10/24 10:00 10/13/24 08:39 50 MG Labetalol HCl 10 mg Q2HPRN PRN IV 10/09/24 13:15 10/10/24 15:12 10 MG Nifedipine 120 mg DAILY PO 10/11/24 10:00 10/13/24 09:05 120 MG Morphine Sulfate 2 mg Q3HPRN PRN IV 10/10/24 14:15 10/13/24 19:52 2 MG Apixaban 10 mg BID PO 10/12/24 10:00 10/18/24 22:01 10/13/24 21:32 10 MG Apixaban 5 mg BID PO 10/19/24 10:00 objective GENERAL: Alert and oriented x 3. No acute distress. EYES: PERRL, EOMI. Anicteric. HENT: Moist mucous membranes. LUNGS: Clear to auscultation bilaterally. CARDIOVASCULAR: Regular rate and rhythm. ABDOMEN: Soft, non-tender and non-distended. EXTREMITIES: No edema. NEUROLOGIC: No focal neurological deficits. SKIN: Warm, dry. laboratory and microbiology Laboratory Tests 10/13/24 10:20 10/09/24 09:15 Test 10/09/24 09:15 Range/Units Serum Glucose 180 H 74-106 mg/dL Problem List Rule out PE. Acute kidney injury. Metabolic acidosis. Lactic acidosis. Hypoxic respiratory failure. Possible sepsis. Complicated UTI. Elevated troponin. Leukocytosis. Uncontrolled diabetes. Assessment/Plan Continued all current supportive medical care. Nifedipine. IV Labetalol for SBP > 150. Metoprolol. GI prophylactics. Morphine ad [place] for pain management. IV antibiotics as ordered. Hepatin drip. Additional plan as per the hospital course. Dietary Evaluation Review Comments: Nutrition Recommendation 1) CCHO 75gm + 2gm Na diet 2) Refer [employer] for diabetes education Expected Outcomes/Goals: To meet >75% estimated needs Fu 3-5 days Plan discussed with: Patient PATSY LUZ MD Oct 13, 2024 23:55
[2024-10-14] VITALS (8 sets, daily range): BP systolic 120–152; BP diastolic 68–97; PULSE 77–87; RESP 15–19; TEMP 97.4–98.2; O2SAT 96–100
--- NOTE | 2024-10-14 09:10 | DVHPN2 ---
Subjective Patient states that his breathing has improved. Reviewed: Care Plan, H&P, Labs, Medications Changes from previous H/P or p: No Changes General: Per HPI Eyes: No Pain, No Vision change, No Conjunctivae inflammation, No Eyelid inflammation, No Other, No Redness ENT: No Ear pain, No Ear discharge, No Nose pain, No Nose discharge, No Nose congestion, No Mouth pain, No Mouth swelling, No Throat pain, No Throat swelling, No Other Cardiovascular: No Chest Pain, No Palpitations, No Orthopnea, No Paroxysmal Noc. Dyspnea, No Edema, No Lt Headedness, No Other Respiratory: No Cough, No Dry, No Shortness of breath, No SOB with excertion, No Wheezing, No Hemoptysis, No Pleuritic Pain, No Sputum, No Other Gastrointestinal: No Nausea, No Vomiting, No Abdominal Pain, No Diarrhea, No Constipation, No Melena, No Hematochezia, No Other Genitourinary: No Dysuria, No Frequency, No Incontinence, No Hematuria, No Retention, No Other Musculoskeletal: No other, No neck pain, No shoulder pain, No arm pain, No back pain, No hand pain, No leg pain, No foot pain Skin: No Rash, No Lesions, No Jaundice, No Bruising, No Other Objective Vitals Vital Signs Date Time Temp Pulse Resp B/P (MAP) Pulse Ox O2 Delivery O2 Flow Rate FiO2 10/14/24 09:00 97.6 83 17 139/83 (101) 100 97.6 10/13/24 20:00 Nasal Cannula* 2 28 Intake/Output Intake and Output 10/14/24 07:00 Intake Total 2020 ml Output Total 1500 ml Balance 520 ml Intake Oral 2020 ml Output Urine Total 1500 ml General Appearance: Alert, Oriented X3, Cooperative HEENT: Atraumatic, PERRLA Lungs: Clear to auscultation, Normal air movement Cardiovascular: Normal S1, Normal S2 Musculoskeletal: Normal sensory function, Normal motor function Skin: Dry, Intact Psych/Mental Status: Mental status NL, Mood NL Medications Current Medications Medications Dose Ordered Sig/Gavin Route Start Time Stop Time Status Last Admin Dose Admin Ondansetron HCl 4 mg Q4HP PRN IV 10/07/24 10:00 10/09/24 17:53 4 MG Morphine Sulfate 2 mg Q30M PRN IV 10/07/24 10:00 Acetaminophen/ Hydrocodone Bitart 1 tab Q4HP PRN PO 10/07/24 10:00 10/14/24 08:24 1 TAB Docusate Sodium 100 mg BIDPRN PRN PO 10/07/24 10:00 10/09/24 17:53 100 MG Acetaminophen 650 mg Q6HP PRN PO 10/07/24 10:00 10/10/24 08:52 650 MG Nitroglycerin 0.4 mg Q5MINP PRN SL 10/07/24 10:00 Diagnostic Test (Pha) 1 strip ACHS 10/07/24 11:30 10/14/24 06:02 1 STRIP Insulin Human Regular HS SC 10/07/24 22:00 10/13/24 21:47 3 UNITS Insulin Human Regular AC SC 10/07/24 11:30 10/13/24 17:49 2 UNITS Dextrose 50 ml UD PRN IV 10/07/24 10:30 Calcium Carbonate 500 mg Q4HPRN PRN PO 10/07/24 20:45 10/14/24 05:38 500 MG Pantoprazole Sodium 40 mg DAILY@1000 PO 10/08/24 10:00 10/14/24 08:25 40 MG Metoprolol Succinate 50 mg DAILY PO 10/10/24 10:00 10/14/24 08:25 50 MG Labetalol HCl 10 mg Q2HPRN PRN IV 10/09/24 13:15 10/10/24 15:12 10 MG Nifedipine 120 mg DAILY PO 10/11/24 10:00 10/14/24 08:23 120 MG Morphine Sulfate 2 mg Q3HPRN PRN IV 10/10/24 14:15 10/14/24 05:39 2 MG Apixaban 10 mg BID PO 10/12/24 10:00 10/18/24 22:01 10/14/24 08:25 10 MG Apixaban 5 mg BID PO 10/19/24 10:00 Laboratory Results Laboratory Tests 10/09/24 09:15 10/13/24 10:20 Urinalysis Test 10/07/24 07:09 Urine Color Light-orange (Yellow) Urine Clarity Turbid (Clear) H Urine pH 5.5 (5.0-9.0) Urine Specific [place] 1.022 (1.001-1.035) Urine Protein 2+ (Negative) H Urine Ketones Negative (Negative) Urine Blood 1+ /uL (Negative) H Urine Nitrite Negative (Negative) Urine Bilirubin Negative (Negative) Urine Urobilinogen Normal mg/dL (Negative) Urine Leukocyte Esterase 1+ /uL (Negative) Urine RBC 11 /hpf (0 - 3) Urine WBC Clumps Present /hpf (None Seen) Urine Microscopic WBC 38 /HPF (0-3) H Urine Squamous Epithelial Cells Few /hpf (<5) Urine Bacteria Few /hpf (None Seen) H Urine Mucus Few (None Seen) Urine Glucose 1+ mg/dL (Normal) H Microbiology Microbiology Date/Time Source Procedure Growth Status 10/07/24 17:55 Nose MRSA Screen - Final Complete 10/07/24 07:40 Blood Blood Culture - Final Staphylococcus epidermidis Complete 10/07/24 07:09 Voided Urine Urine Culture - Final Complete Labs and/or images reviewed: Labs reviewed by me, Image(s) reviewed by me Assessment/Plan Assessment/Plan Impression: -leukocytosis, rule out sepsis -obesity -NSTEMI, type 2 secondary to pulmonary embolism -diabetes mellitus -peripheral neuropathy -anxiety disorder -syncope -cholelithiasis -acute hypoxic respiratory failure -saddle PE with cor pulmonale Plan: Events: No events overnight. -regular insulin sliding scale -PUD prophylaxis -physical therapy: Noted to ambulate 6 ft with maximum assistance -pain now -social service consultation for sniff placement. -repeat labs in a.m. Total time spent with patient discussing and formulating plan of care: 35 minutes. This medical document was created using an electronic medical record system with [employer] dictation system. Although this document has been carefully reviewed, there may still be some phonetic and typographical errors. These areas are purely typographical due to imperfections of the software programs, and do not reflect any compromise in the patient's medical care. Plan discussed with: Patient, Other (RN) Date of Service: Oct 14, 2024 Billing Provider: TYRON KAUFFMAN NP Common Visit Codes: [id number] INP/OBS CARE(HIGH) TYRON KAUFFMAN NP Oct 14, 2024 09:10
--- NOTE | 2024-10-14 23:15 | DVHPN2 ---
Progress Note - Dictate Date Seen: Oct 14, 2024 Medical Necessity Reason Pt with a Central, PICC or Fol: No Subjective Patient was seen and evaluated in follow up. Patient is on 2 LPM NC. Patient reports improvement in SOB. BS in the 160s. Telemetry reviewed. vital signs Vital Sign Date Time Temp Pulse Resp B/P (MAP) Pulse Ox O2 Delivery O2 Flow Rate FiO2 10/14/24 21:44 78 17 112/58 10/14/24 21:00 98.2 98 98.2 10/14/24 08:10 Nasal Cannula* 2 28 Total Intake and Output 10/13/24 10/13/24 10/14/24 15:00 23:00 07:00 Intake Total 1100 ml 920 ml Output Total 900 ml 600 ml Balance 200 ml 320 ml medications Current Medications Medications Dose Ordered Sig/Gavin Route Start Time Stop Time Status Last Admin Dose Admin Ondansetron HCl 4 mg Q4HP PRN IV 10/07/24 10:00 10/09/24 17:53 4 MG Morphine Sulfate 2 mg Q30M PRN IV 10/07/24 10:00 Acetaminophen/ Hydrocodone Bitart 1 tab Q4HP PRN PO 10/07/24 10:00 10/14/24 21:43 1 TAB Docusate Sodium 100 mg BIDPRN PRN PO 10/07/24 10:00 10/09/24 17:53 100 MG Acetaminophen 650 mg Q6HP PRN PO 10/07/24 10:00 10/10/24 08:52 650 MG Nitroglycerin 0.4 mg Q5MINP PRN SL 10/07/24 10:00 Diagnostic Test (Pha) 1 strip ACHS 10/07/24 11:30 10/14/24 20:53 1 STRIP Insulin Human Regular HS SC 10/07/24 22:00 10/14/24 20:56 2 UNITS Insulin Human Regular AC SC 10/07/24 11:30 10/14/24 17:46 3 UNITS Dextrose 50 ml UD PRN IV 10/07/24 10:30 Calcium Carbonate 500 mg Q4HPRN PRN PO 10/07/24 20:45 10/14/24 20:26 500 MG Pantoprazole Sodium 40 mg DAILY@1000 PO 10/08/24 10:00 10/14/24 08:25 40 MG Metoprolol Succinate 50 mg DAILY PO 10/10/24 10:00 10/14/24 08:25 50 MG Labetalol HCl 10 mg Q2HPRN PRN IV 10/09/24 13:15 10/10/24 15:12 10 MG Nifedipine 120 mg DAILY PO 10/11/24 10:00 10/14/24 08:23 120 MG Morphine Sulfate 2 mg Q3HPRN PRN IV 10/10/24 14:15 10/14/24 20:27 2 MG Apixaban 10 mg BID PO 10/12/24 10:00 10/18/24 22:01 10/14/24 20:53 10 MG Apixaban 5 mg BID PO 10/19/24 10:00 objective GENERAL: Alert and oriented x 3. No acute distress. EYES: PERRL, EOMI. Anicteric. HENT: Moist mucous membranes. LUNGS: Clear to auscultation bilaterally. CARDIOVASCULAR: Regular rate and rhythm. ABDOMEN: Soft, non-tender and non-distended. EXTREMITIES: No edema. NEUROLOGIC: No focal neurological deficits. SKIN: Warm, dry. laboratory and microbiology Laboratory Tests 10/13/24 10:20 10/09/24 09:15 Test 10/09/24 09:15 Range/Units Serum Glucose 180 H 74-106 mg/dL Problem List Rule out PE. Acute kidney injury. Metabolic acidosis. Lactic acidosis. Hypoxic respiratory failure. Possible sepsis. Complicated UTI. Elevated troponin. Leukocytosis. Uncontrolled diabetes. Assessment/Plan Continued all current supportive medical care. Morphine ad [place] for pain management. Eliquis. IV Labetalol for SBP > 150. Metoprolol. Nifedipine. GI prophylactics. Additional plan as per the hospital course. Dietary Evaluation Review Comments: Nutrition Recommendation 1) CCHO 75gm + 2gm Na diet 2) Refer Hematology Nurse Educator for diabetes education Expected Outcomes/Goals: To meet >75% estimated needs Fu 3-5 days Plan discussed with: Patient PATSY LUZ MD Oct 14, 2024 23:14
[2024-10-15] VITALS (8 sets, daily range): BP systolic 120–156; BP diastolic 71–91; PULSE 75–87; RESP 18–20; TEMP 97.4–98.6; O2SAT 93–100
[2024-10-15 09:16] LABS: Hematocrit 46.0 % (41.0-53.0); Hemoglobin 15.6 g/dL (13.5-17.5); Mean Corpuscular Hemoglobin 29.7 pg (28.0-32.0); Mean Corpuscular Volume 87.6 fL (80.0-100.0); Nucleated Red Blood Cells % 0.0 %
[2024-10-15 09:21] LABS: Chloride 101 mmol/L (98-107); Potassium 3.7 mmol/L (3.5-5.1); Sodium 137 mmol/L (136-145)
[2024-10-15 09:22] LABS: Anion Gap 8 (5-15); Carbon Dioxide 28 mmol/L (20-31)
[2024-10-15 09:23] LABS: Calcium 9.6 mg/dL (8.7-10.4)
[2024-10-15 09:27] LABS: BUN/Creatinine Ratio 20.4 (10.0-20.0); Blood Urea Nitrogen 11 mg/dL (9-23)
[2024-10-15 09:32] LABS: Glucose 143 mg/dL (74-106)
--- NOTE | 2024-10-15 09:54 | DVHPN2 ---
Subjective Patient states that his breathing has improved. Reviewed: Care Plan, H&P, Labs, Medications Changes from previous H/P or p: No Changes General: Per HPI Eyes: No Pain, No Vision change, No Conjunctivae inflammation, No Eyelid inflammation, No Other, No Redness ENT: No Ear pain, No Ear discharge, No Nose pain, No Nose discharge, No Nose congestion, No Mouth pain, No Mouth swelling, No Throat pain, No Throat swelling, No Other Cardiovascular: No Chest Pain, No Palpitations, No Orthopnea, No Paroxysmal Noc. Dyspnea, No Edema, No Lt Headedness, No Other Respiratory: No Cough, No Dry, No Shortness of breath, No SOB with excertion, No Wheezing, No Hemoptysis, No Pleuritic Pain, No Sputum, No Other Gastrointestinal: No Nausea, No Vomiting, No Abdominal Pain, No Diarrhea, No Constipation, No Melena, No Hematochezia, No Other Genitourinary: No Dysuria, No Frequency, No Incontinence, No Hematuria, No Retention, No Other Musculoskeletal: No other, No neck pain, No shoulder pain, No arm pain, No back pain, No hand pain, No leg pain, No foot pain Skin: No Rash, No Lesions, No Jaundice, No Bruising, No Other Objective Vitals Vital Signs Date Time Temp Pulse Resp B/P (MAP) Pulse Ox O2 Delivery O2 Flow Rate FiO2 10/15/24 09:00 97.8 84 20 156/86 (109) 100 97.8 10/14/24 20:00 Nasal Cannula* 2 28 Intake/Output Intake and Output 10/15/24 07:00 Intake Total 1040 ml Output Total 900 ml Balance 140 ml Intake Oral 1040 ml Output Urine Total 900 ml General Appearance: Alert, Oriented X3, Cooperative HEENT: Atraumatic, PERRLA Lungs: Clear to auscultation, Normal air movement Cardiovascular: Normal S1, Normal S2 Musculoskeletal: Normal sensory function, Normal motor function Skin: Dry, Intact Psych/Mental Status: Mental status NL, Mood NL Medications Current Medications Medications Dose Ordered Sig/Gavin Route Start Time Stop Time Status Last Admin Dose Admin Ondansetron HCl 4 mg Q4HP PRN IV 10/07/24 10:00 10/09/24 17:53 4 MG Morphine Sulfate 2 mg Q30M PRN IV 10/07/24 10:00 Acetaminophen/ Hydrocodone Bitart 1 tab Q4HP PRN PO 10/07/24 10:00 10/15/24 05:18 1 TAB Docusate Sodium 100 mg BIDPRN PRN PO 10/07/24 10:00 10/09/24 17:53 100 MG Acetaminophen 650 mg Q6HP PRN PO 10/07/24 10:00 10/10/24 08:52 650 MG Nitroglycerin 0.4 mg Q5MINP PRN SL 10/07/24 10:00 Diagnostic Test (Pha) 1 strip ACHS 10/07/24 11:30 10/15/24 05:50 1 STRIP Insulin Human Regular HS SC 10/07/24 22:00 10/14/24 20:56 2 UNITS Insulin Human Regular AC SC 10/07/24 11:30 10/14/24 17:46 3 UNITS Dextrose 50 ml UD PRN IV 10/07/24 10:30 Calcium Carbonate 500 mg Q4HPRN PRN PO 10/07/24 20:45 10/15/24 05:19 500 MG Pantoprazole Sodium 40 mg DAILY@1000 PO 10/08/24 10:00 10/15/24 08:24 40 MG Metoprolol Succinate 50 mg DAILY PO 10/10/24 10:00 10/15/24 08:24 50 MG Labetalol HCl 10 mg Q2HPRN PRN IV 10/09/24 13:15 10/10/24 15:12 10 MG Nifedipine 120 mg DAILY PO 10/11/24 10:00 10/15/24 08:25 120 MG Morphine Sulfate 2 mg Q3HPRN PRN IV 10/10/24 14:15 10/15/24 08:27 2 MG Apixaban 10 mg BID PO 10/12/24 10:00 10/18/24 22:01 10/15/24 08:22 10 MG Apixaban 5 mg BID PO 10/19/24 10:00 Laboratory Results Laboratory Tests 10/15/24 09:02 Chemistry Test 10/15/24 09:02 Calcium Level 9.6 mg/dL (8.7-10.4) Urinalysis Test 10/07/24 07:09 Urine Color Light-orange (Yellow) Urine Clarity Turbid (Clear) H Urine pH 5.5 (5.0-9.0) Urine Specific [place] 1.022 (1.001-1.035) Urine Protein 2+ (Negative) H Urine Ketones Negative (Negative) Urine Blood 1+ /uL (Negative) H Urine Nitrite Negative (Negative) Urine Bilirubin Negative (Negative) Urine Urobilinogen Normal mg/dL (Negative) Urine Leukocyte Esterase 1+ /uL (Negative) Urine RBC 11 /hpf (0 - 3) Urine WBC Clumps Present /hpf (None Seen) Urine Microscopic WBC 38 /HPF (0-3) H Urine Squamous Epithelial Cells Few /hpf (<5) Urine Bacteria Few /hpf (None Seen) H Urine Mucus Few (None Seen) Urine Glucose 1+ mg/dL (Normal) H Microbiology Microbiology Date/Time Source Procedure Growth Status 10/07/24 17:55 Nose MRSA Screen - Final Complete 10/07/24 07:40 Blood Blood Culture - Final Staphylococcus epidermidis Complete 10/07/24 07:09 Voided Urine Urine Culture - Final Complete Labs and/or images reviewed: Labs reviewed by me, Image(s) reviewed by me Assessment/Plan Assessment/Plan Impression: -leukocytosis, rule out sepsis -obesity -NSTEMI, type 2 secondary to pulmonary embolism -diabetes mellitus -peripheral neuropathy -anxiety disorder -syncope -cholelithiasis -acute hypoxic respiratory failure -saddle PE with cor pulmonale Plan: Events: No events overnight. I place the patient on room air today. Patient noted to be 98% on room air. Discussed with the patient discharge planning. Continues to require physical therapy with moderate assistance with ambulation. -regular insulin sliding scale -PUD prophylaxis -physical therapy: Noted to ambulate 6 ft with maximum assistance -pain now -social service consultation for SNF placement. Total time spent with patient discussing and formulating plan of care: 35 minutes. This medical document was created using an electronic medical record system with [employer] dictation system. Although this document has been carefully reviewed, there may still be some phonetic and typographical errors. These areas are purely typographical due to imperfections of the software programs, and do not reflect any compromise in the patient's medical care. Plan discussed with: Patient, Other (RN) Date of Service: Oct 15, 2024 Billing Provider: TYRON KAUFFMAN NP Common Visit Codes: [id number] INP/OBS CARE(HIGH) TYRON KAUFFMAN NP Oct 15, 2024 09:54
[2024-10-15] MEDS: MORPHINE SULFATE INJ 2 MG/ml SYRG IV PRN (15:49)
--- NOTE | 2024-10-15 23:13 | DVHPN2 ---
Progress Note - Dictate Date Seen: Oct 15, 2024 Medical Necessity Reason Pt with a Central, PICC or Fol: No Subjective Patient was seen and evaluated in follow up. Patient is on 2 LPM NC. Per RN, patient is refusing insulin. WBC 11.9. BS remain WNL. Telemetry reviewed. vital signs Vital Sign Date Time Temp Pulse Resp B/P (MAP) Pulse Ox O2 Delivery O2 Flow Rate FiO2 10/15/24 13:00 97.4 81 18 138/91 (107) 93 97.4 10/15/24 08:10 Nasal Cannula* 2 28 Total Intake and Output 10/14/24 10/14/24 10/15/24 15:00 23:00 07:00 Intake Total 750 ml 290 ml Output Total 850 ml 50 ml Balance -100 ml 240 ml medications Current Medications Medications Dose Ordered Sig/Gavin Route Start Time Stop Time Status Last Admin Dose Admin Ondansetron HCl 4 mg Q4HP PRN IV 10/07/24 10:00 10/09/24 17:53 4 MG Morphine Sulfate 2 mg Q30M PRN IV 10/07/24 10:00 Acetaminophen/ Hydrocodone Bitart 1 tab Q4HP PRN PO 10/07/24 10:00 10/15/24 11:31 1 TAB Docusate Sodium 100 mg BIDPRN PRN PO 10/07/24 10:00 10/09/24 17:53 100 MG Acetaminophen 650 mg Q6HP PRN PO 10/07/24 10:00 10/10/24 08:52 650 MG Nitroglycerin 0.4 mg Q5MINP PRN SL 10/07/24 10:00 Diagnostic Test (Pha) 1 strip ACHS 10/07/24 11:30 10/15/24 12:01 1 STRIP Insulin Human Regular HS SC 10/07/24 22:00 10/14/24 20:56 2 UNITS Insulin Human Regular AC SC 10/07/24 11:30 10/15/24 12:03 2 UNITS Dextrose 50 ml UD PRN IV 10/07/24 10:30 Calcium Carbonate 500 mg Q4HPRN PRN PO 10/07/24 20:45 10/15/24 05:19 500 MG Pantoprazole Sodium 40 mg DAILY@1000 PO 10/08/24 10:00 10/15/24 08:24 40 MG Metoprolol Succinate 50 mg DAILY PO 10/10/24 10:00 10/15/24 08:24 50 MG Labetalol HCl 10 mg Q2HPRN PRN IV 10/09/24 13:15 10/10/24 15:12 10 MG Nifedipine 120 mg DAILY PO 10/11/24 10:00 10/15/24 08:25 120 MG Morphine Sulfate 2 mg Q3HPRN PRN IV 10/10/24 14:15 10/15/24 08:27 2 MG Apixaban 10 mg BID PO 10/12/24 10:00 10/18/24 22:01 10/15/24 08:22 10 MG Apixaban 5 mg BID PO 10/19/24 10:00 objective GENERAL: Alert and oriented x 3. No acute distress. EYES: PERRL, EOMI. Anicteric. HENT: Moist mucous membranes. LUNGS: Clear to auscultation bilaterally. CARDIOVASCULAR: Regular rate and rhythm. ABDOMEN: Soft, non-tender and non-distended. EXTREMITIES: No edema. NEUROLOGIC: No focal neurological deficits. SKIN: Warm, dry. laboratory and microbiology Laboratory Tests 10/15/24 09:02 Test 10/15/24 09:02 Range/Units Serum Glucose 143 H 74-106 mg/dL Problem List Rule out PE. Acute kidney injury. Metabolic acidosis. Lactic acidosis. Hypoxic respiratory failure. Possible sepsis. Complicated UTI. Elevated troponin. Leukocytosis. Uncontrolled diabetes. Assessment/Plan Continued all current supportive medical care. Morphine ad [place] for pain management. Eliquis. Metoprolol. Nifedipine. GI prophylactics. Additional plan as per the hospital course. Dietary Evaluation Review Comments: Nutrition Recommendation 1) CCHO 75gm + 2gm Na diet 2) Refer Air Bag Curer for diabetes education Expected Outcomes/Goals: To meet >75% estimated needs Fu 3-5 days Plan discussed with: Patient PATSY LUZ MD Oct 15, 2024 14:50
[2024-10-16] VITALS (8 sets, daily range): BP systolic 108–148; BP diastolic 77–90; PULSE 69–91; RESP 16–18; TEMP 97.9–98.3; O2SAT 94–100
--- NOTE | 2024-10-16 11:52 | DVHPN2 ---
Subjective Patient denies any symptoms. Reviewed: Care Plan, H&P, Labs, Medications Changes from previous H/P or p: No Changes General: Per HPI Eyes: No Pain, No Vision change, No Conjunctivae inflammation, No Eyelid inflammation, No Other, No Redness ENT: No Ear pain, No Ear discharge, No Nose pain, No Nose discharge, No Nose congestion, No Mouth pain, No Mouth swelling, No Throat pain, No Throat swelling, No Other Cardiovascular: No Chest Pain, No Palpitations, No Orthopnea, No Paroxysmal Noc. Dyspnea, No Edema, No Lt Headedness, No Other Respiratory: No Cough, No Dry, No Shortness of breath, No SOB with excertion, No Wheezing, No Hemoptysis, No Pleuritic Pain, No Sputum, No Other Gastrointestinal: No Nausea, No Vomiting, No Abdominal Pain, No Diarrhea, No Constipation, No Melena, No Hematochezia, No Other Genitourinary: No Dysuria, No Frequency, No Incontinence, No Hematuria, No Retention, No Other Musculoskeletal: No other, No neck pain, No shoulder pain, No arm pain, No back pain, No hand pain, No leg pain, No foot pain Skin: No Rash, No Lesions, No Jaundice, No Bruising, No Other Objective Vitals Vital Signs Date Time Temp Pulse Resp B/P (MAP) Pulse Ox O2 Delivery O2 Flow Rate FiO2 10/16/24 09:44 148/90 10/16/24 09:44 84 10/16/24 09:19 18 10/16/24 09:00 98.1 97 98.1 10/16/24 08:00 Room Air* 0 21 Intake/Output Intake and Output 10/16/24 06:59 Intake Total 1720 ml Output Total 500 ml Balance 1220 ml Intake Oral 1720 ml Output Urine Total 500 ml General Appearance: Alert, Oriented X3, Cooperative HEENT: Atraumatic, PERRLA Lungs: Clear to auscultation, Normal air movement Cardiovascular: Normal S1, Normal S2 Musculoskeletal: Normal sensory function, Normal motor function Skin: Dry, Intact Psych/Mental Status: Mental status NL, Mood NL Medications Current Medications Medications Dose Ordered Sig/Gavin Route Start Time Stop Time Status Last Admin Dose Admin Ondansetron HCl 4 mg Q4HP PRN IV 10/07/24 10:00 10/09/24 17:53 4 MG Morphine Sulfate 2 mg Q30M PRN IV 10/07/24 10:00 Acetaminophen/ Hydrocodone Bitart 1 tab Q4HP PRN PO 10/07/24 10:00 10/16/24 11:38 1 TAB Docusate Sodium 100 mg BIDPRN PRN PO 10/07/24 10:00 10/09/24 17:53 100 MG Acetaminophen 650 mg Q6HP PRN PO 10/07/24 10:00 10/10/24 08:52 650 MG Nitroglycerin 0.4 mg Q5MINP PRN SL 10/07/24 10:00 Diagnostic Test (Pha) 1 strip ACHS 10/07/24 11:30 10/16/24 11:42 1 STRIP Insulin Human Regular HS SC 10/07/24 22:00 10/14/24 20:56 2 UNITS Insulin Human Regular AC SC 10/07/24 11:30 10/16/24 11:42 2 UNITS Dextrose 50 ml UD PRN IV 10/07/24 10:30 Calcium Carbonate 500 mg Q4HPRN PRN PO 10/07/24 20:45 10/16/24 01:50 500 MG Pantoprazole Sodium 40 mg DAILY@1000 PO 10/08/24 10:00 10/16/24 09:43 40 MG Metoprolol Succinate 50 mg DAILY PO 10/10/24 10:00 10/16/24 09:44 50 MG Labetalol HCl 10 mg Q2HPRN PRN IV 10/09/24 13:15 10/10/24 15:12 10 MG Nifedipine 120 mg DAILY PO 10/11/24 10:00 10/16/24 09:44 120 MG Morphine Sulfate 2 mg Q3HPRN PRN IV 10/10/24 14:15 10/16/24 09:19 2 MG Apixaban 10 mg BID PO 10/12/24 10:00 10/18/24 22:01 10/16/24 09:43 10 MG Apixaban 5 mg BID PO 10/19/24 10:00 Laboratory Results Laboratory Tests 10/15/24 09:02 Urinalysis Test 10/07/24 07:09 Urine Color Light-orange (Yellow) Urine Clarity Turbid (Clear) H Urine pH 5.5 (5.0-9.0) Urine Specific [place] 1.022 (1.001-1.035) Urine Protein 2+ (Negative) H Urine Ketones Negative (Negative) Urine Blood 1+ /uL (Negative) H Urine Nitrite Negative (Negative) Urine Bilirubin Negative (Negative) Urine Urobilinogen Normal mg/dL (Negative) Urine Leukocyte Esterase 1+ /uL (Negative) Urine RBC 11 /hpf (0 - 3) Urine WBC Clumps Present /hpf (None Seen) Urine Microscopic WBC 38 /HPF (0-3) H Urine Squamous Epithelial Cells Few /hpf (<5) Urine Bacteria Few /hpf (None Seen) H Urine Mucus Few (None Seen) Urine Glucose 1+ mg/dL (Normal) H Microbiology Microbiology Date/Time Source Procedure Growth Status 10/07/24 17:55 Nose MRSA Screen - Final Complete 10/07/24 07:40 Blood Blood Culture - Final Staphylococcus epidermidis Complete 10/07/24 07:09 Voided Urine Urine Culture - Final Complete Labs and/or images reviewed: Labs reviewed by me, Image(s) reviewed by me Assessment/Plan Assessment/Plan Impression: -leukocytosis, rule out sepsis -obesity -NSTEMI, type 2 secondary to pulmonary embolism -diabetes mellitus -peripheral neuropathy -anxiety disorder -syncope -cholelithiasis -acute hypoxic respiratory failure -saddle PE with cor pulmonale Plan: Events: No events overnight. Patient ambulating approximately 10 ft. Requesting restarting gabapentin. -gabapentin 300 mg p.o. t.i.d. -regular insulin sliding scale -PUD prophylaxis -physical therapy: Continue aggressive PT -pain now -social service consultation for SNF placement. Discharge to SNF once bed available Total time spent with patient discussing and formulating plan of care: 35 minutes. This medical document was created using an electronic medical record system with [employer] dictation system. Although this document has been carefully reviewed, there may still be some phonetic and typographical errors. These areas are purely typographical due to imperfections of the software programs, and do not reflect any compromise in the patient's medical care. Plan discussed with: Patient, Other (RN) Date of Service: Oct 16, 2024 Billing Provider: TYRON KAUFFMAN NP Common Visit Codes: [id number] INP/OBS CARE(HIGH) TYRON KAUFFMAN NP Oct 16, 2024 11:52
[2024-10-16] MEDS: LACTULOSE 20Gm/30ML SOLN PO ONE (12:00)
[2024-10-16] MEDS: IOHEXOL 350 MG/ML 100ML IJ ONE (13:01)
[2024-10-16] MEDS: GABAPENTIN 300 MG CAP PO SCH (14:13)
[2024-10-16] MEDS: MORPHINE SULFATE INJ 2 MG/ml SYRG IV PRN (21:14)
--- NOTE | 2024-10-16 23:48 | DVHPN2 ---
Progress Note - Dictate Date Seen: Oct 16, 2024 Medical Necessity Reason Pt with a Central, PICC or Fol: No Subjective Patient was seen and evaluated in follow up. No overnight events. Patient complains of generalized pain. Patient is working well with PT. Telemetry reviewed. vital signs Vital Sign Date Time Temp Pulse Resp B/P (MAP) Pulse Ox O2 Delivery O2 Flow Rate FiO2 10/16/24 09:44 148/90 10/16/24 09:44 84 10/16/24 09:19 18 10/16/24 09:00 98.1 97 98.1 10/16/24 08:00 Room Air* 0 21 Total Intake and Output 10/15/24 10/15/24 10/16/24 15:00 23:00 07:00 Intake Total 1000 ml 720 ml Output Total 100 ml 400 ml Balance 900 ml 320 ml medications Current Medications Medications Dose Ordered Sig/Gavin Route Start Time Stop Time Status Last Admin Dose Admin Ondansetron HCl 4 mg Q4HP PRN IV 10/07/24 10:00 10/09/24 17:53 4 MG Morphine Sulfate 2 mg Q30M PRN IV 10/07/24 10:00 Acetaminophen/ Hydrocodone Bitart 1 tab Q4HP PRN PO 10/07/24 10:00 10/16/24 11:38 1 TAB Docusate Sodium 100 mg BIDPRN PRN PO 10/07/24 10:00 10/09/24 17:53 100 MG Acetaminophen 650 mg Q6HP PRN PO 10/07/24 10:00 10/10/24 08:52 650 MG Nitroglycerin 0.4 mg Q5MINP PRN SL 10/07/24 10:00 Diagnostic Test (Pha) 1 strip ACHS 10/07/24 11:30 10/16/24 11:42 1 STRIP Insulin Human Regular HS SC 10/07/24 22:00 10/14/24 20:56 2 UNITS Insulin Human Regular AC SC 10/07/24 11:30 10/16/24 11:42 2 UNITS Dextrose 50 ml UD PRN IV 10/07/24 10:30 Calcium Carbonate 500 mg Q4HPRN PRN PO 10/07/24 20:45 10/16/24 01:50 500 MG Pantoprazole Sodium 40 mg DAILY@1000 PO 10/08/24 10:00 10/16/24 09:43 40 MG Metoprolol Succinate 50 mg DAILY PO 10/10/24 10:00 10/16/24 09:44 50 MG Labetalol HCl 10 mg Q2HPRN PRN IV 10/09/24 13:15 10/10/24 15:12 10 MG Nifedipine 120 mg DAILY PO 10/11/24 10:00 10/16/24 09:44 120 MG Apixaban 10 mg BID PO 10/12/24 10:00 10/18/24 22:01 10/16/24 09:43 10 MG Apixaban 5 mg BID PO 10/19/24 10:00 Morphine Sulfate 1 mg Q8HPRN PRN IV 10/16/24 12:00 Gabapentin 300 mg TID PO 10/16/24 14:00 objective GENERAL: Alert and oriented x 3. No acute distress. EYES: PERRL, EOMI. Anicteric. HENT: Moist mucous membranes. LUNGS: Clear to auscultation bilaterally. CARDIOVASCULAR: Regular rate and rhythm. ABDOMEN: Soft, non-tender and non-distended. EXTREMITIES: No edema. NEUROLOGIC: No focal neurological deficits. SKIN: Warm, dry. laboratory and microbiology Laboratory Tests 10/15/24 09:02 Test 10/15/24 09:02 Range/Units Serum Glucose 143 H 74-106 mg/dL Problem List Rule out PE. Acute kidney injury. Metabolic acidosis. Lactic acidosis. Hypoxic respiratory failure. Possible sepsis. Complicated UTI. Elevated troponin. Leukocytosis. Uncontrolled diabetes. Assessment/Plan Continued all current supportive medical care. Morphine ad [place] for pain management. Eliquis. Metoprolol. Nifedipine. GI prophylactics. Additional plan as per the hospital course. Dietary Evaluation Review Comments: Nutrition Recommendation 1) CCHO 75gm + 2gm Na diet 2) Refer Golf Manager for diabetes education Expected Outcomes/Goals: To meet >75% estimated needs Fu 3-5 days Plan discussed with: Patient PATSY LUZ MD Oct 16, 2024 12:49
[2024-10-17] VITALS (8 sets, daily range): BP systolic 116–131; BP diastolic 78–86; PULSE 74–99; RESP 18–20; TEMP 96.8–98.4; O2SAT 94–97
--- NOTE | 2024-10-17 11:42 | DVHPN2 ---
Subjective Patient denies any symptoms. Reviewed: Care Plan, H&P, Labs, Medications Changes from previous H/P or p: No Changes General: Per HPI Eyes: No Pain, No Vision change, No Conjunctivae inflammation, No Eyelid inflammation, No Other, No Redness ENT: No Ear pain, No Ear discharge, No Nose pain, No Nose discharge, No Nose congestion, No Mouth pain, No Mouth swelling, No Throat pain, No Throat swelling, No Other Cardiovascular: No Chest Pain, No Palpitations, No Orthopnea, No Paroxysmal Noc. Dyspnea, No Edema, No Lt Headedness, No Other Respiratory: No Cough, No Dry, No Shortness of breath, No SOB with excertion, No Wheezing, No Hemoptysis, No Pleuritic Pain, No Sputum, No Other Gastrointestinal: No Nausea, No Vomiting, No Abdominal Pain, No Diarrhea, No Constipation, No Melena, No Hematochezia, No Other Genitourinary: No Dysuria, No Frequency, No Incontinence, No Hematuria, No Retention, No Other Musculoskeletal: No other, No neck pain, No shoulder pain, No arm pain, No back pain, No hand pain, No leg pain, No foot pain Skin: No Rash, No Lesions, No Jaundice, No Bruising, No Other Objective Vitals Vital Signs Date Time Temp Pulse Resp B/P (MAP) Pulse Ox O2 Delivery O2 Flow Rate FiO2 10/17/24 10:40 125/87 10/17/24 09:35 93 10/17/24 09:00 96.8 20 96 96.8 10/16/24 20:00 Room Air* 0 21 Intake/Output Intake and Output 10/17/24 07:00 Intake Total 760 ml Output Total 380 ml Balance 380 ml Intake Oral 760 ml Output Urine Total 380 ml # Voids 2 General Appearance: Alert, Oriented X3, Cooperative HEENT: Atraumatic, PERRLA Lungs: Clear to auscultation, Normal air movement Cardiovascular: Normal S1, Normal S2 Musculoskeletal: Normal sensory function, Normal motor function Skin: Dry, Intact Psych/Mental Status: Mental status NL, Mood NL Medications Current Medications Medications Dose Ordered Sig/Gavin Route Start Time Stop Time Status Last Admin Dose Admin Ondansetron HCl 4 mg Q4HP PRN IV 10/07/24 10:00 10/09/24 17:53 4 MG Morphine Sulfate 2 mg Q30M PRN IV 10/07/24 10:00 Acetaminophen/ Hydrocodone Bitart 1 tab Q4HP PRN PO 10/07/24 10:00 10/17/24 03:53 1 TAB Docusate Sodium 100 mg BIDPRN PRN PO 10/07/24 10:00 10/09/24 17:53 100 MG Acetaminophen 650 mg Q6HP PRN PO 10/07/24 10:00 10/10/24 08:52 650 MG Nitroglycerin 0.4 mg Q5MINP PRN SL 10/07/24 10:00 Diagnostic Test (Pha) 1 strip ACHS 10/07/24 11:30 10/17/24 05:58 1 STRIP Insulin Human Regular HS SC 10/07/24 22:00 10/16/24 22:00 2 UNITS Insulin Human Regular AC SC 10/07/24 11:30 10/17/24 06:02 2 UNITS Dextrose 50 ml UD PRN IV 10/07/24 10:30 Calcium Carbonate 500 mg Q4HPRN PRN PO 10/07/24 20:45 10/17/24 10:49 500 MG Pantoprazole Sodium 40 mg DAILY@1000 PO 10/08/24 10:00 10/17/24 09:32 40 MG Metoprolol Succinate 50 mg DAILY PO 10/10/24 10:00 10/17/24 09:35 50 MG Labetalol HCl 10 mg Q2HPRN PRN IV 10/09/24 13:15 10/10/24 15:12 10 MG Nifedipine 120 mg DAILY PO 10/11/24 10:00 10/17/24 10:40 120 MG Apixaban 10 mg BID PO 10/12/24 10:00 10/18/24 22:01 10/17/24 09:32 10 MG Apixaban 5 mg BID PO 10/19/24 10:00 Morphine Sulfate 1 mg Q8HPRN PRN IV 10/16/24 12:00 10/17/24 08:04 1 MG Gabapentin 300 mg TID PO 10/16/24 14:00 10/17/24 05:58 300 MG Laboratory Results Laboratory Tests 10/15/24 09:02 Urinalysis Test 10/07/24 07:09 Urine Color Light-orange (Yellow) Urine Clarity Turbid (Clear) H Urine pH 5.5 (5.0-9.0) Urine Specific [place] 1.022 (1.001-1.035) Urine Protein 2+ (Negative) H Urine Ketones Negative (Negative) Urine Blood 1+ /uL (Negative) H Urine Nitrite Negative (Negative) Urine Bilirubin Negative (Negative) Urine Urobilinogen Normal mg/dL (Negative) Urine Leukocyte Esterase 1+ /uL (Negative) Urine RBC 11 /hpf (0 - 3) Urine WBC Clumps Present /hpf (None Seen) Urine Microscopic WBC 38 /HPF (0-3) H Urine Squamous Epithelial Cells Few /hpf (<5) Urine Bacteria Few /hpf (None Seen) H Urine Mucus Few (None Seen) Urine Glucose 1+ mg/dL (Normal) H Microbiology Microbiology Date/Time Source Procedure Growth Status 10/07/24 17:55 Nose MRSA Screen - Final Complete 10/07/24 07:40 Blood Blood Culture - Final Staphylococcus epidermidis Complete 10/07/24 07:09 Voided Urine Urine Culture - Final Complete Labs and/or images reviewed: Labs reviewed by me, Image(s) reviewed by me Assessment/Plan Assessment/Plan Impression: -leukocytosis, rule out sepsis -obesity -NSTEMI, type 2 secondary to pulmonary embolism -diabetes mellitus -peripheral neuropathy -anxiety disorder -syncope -cholelithiasis -acute hypoxic respiratory failure -saddle PE with cor pulmonale Plan: Events: No events overnight. Ambulating 20ft. Still constipated -gabapentin 300 mg p.o. t.i.d. -regular insulin sliding scale -PUD prophylaxis -physical therapy: Continue aggressive PT -pain now -social service consultation for SNF placement. Discharge to SNF once bed available Total time spent with patient discussing and formulating plan of care: 35 minutes. This medical document was created using an electronic medical record system with [employer] dictation system. Although this document has been carefully reviewed, there may still be some phonetic and typographical errors. These areas are purely typographical due to imperfections of the software programs, and do not reflect any compromise in the patient's medical care. Plan discussed with: Patient, Other (RN) My Orders Orders - TYRON KAUFFMAN [employer] Procedure Category Date Status Time Morphine Sulfate PHA 10/16/24 In Process Injection 12:00 Gabapentin Capsule PHA 10/16/24 In Process (Neurontin Capsule) 14:00 Date of Service: Oct 17, 2024 Billing Provider: TYRON KAUFFMAN NP Common Visit Codes: [id number] INP/OBS CARE(HIGH) TYRON KAUFFMAN NP Oct 17, 2024 11:42
--- NOTE | 2024-10-17 17:31 | DVHPN2 ---
Progress Note - Dictate Date Seen: Oct 17, 2024 Medical Necessity Reason Pt with a Central, PICC or Fol: No Subjective Patient was seen and evaluated in follow up. Patient is complaining of generalized discomfort. Per CM, they are working on SNF placement and awaiting bed availability. Telemetry reviewed. vital signs Vital Sign Date Time Temp Pulse Resp B/P (MAP) Pulse Ox O2 Delivery O2 Flow Rate FiO2 10/17/24 10:40 125/87 10/17/24 09:35 93 10/17/24 09:00 96.8 20 96 96.8 10/16/24 20:00 Room Air* 0 21 Total Intake and Output 10/16/24 10/16/24 10/17/24 15:00 23:00 07:00 Intake Total 360 ml 400 ml Output Total 230 ml 150 ml Balance -230 ml 360 ml 250 ml medications Current Medications Medications Dose Ordered Sig/Gavin Route Start Time Stop Time Status Last Admin Dose Admin Ondansetron HCl 4 mg Q4HP PRN IV 10/07/24 10:00 10/09/24 17:53 4 MG Morphine Sulfate 2 mg Q30M PRN IV 10/07/24 10:00 Acetaminophen/ Hydrocodone Bitart 1 tab Q4HP PRN PO 10/07/24 10:00 10/17/24 12:16 1 TAB Docusate Sodium 100 mg BIDPRN PRN PO 10/07/24 10:00 10/09/24 17:53 100 MG Acetaminophen 650 mg Q6HP PRN PO 10/07/24 10:00 10/10/24 08:52 650 MG Nitroglycerin 0.4 mg Q5MINP PRN SL 10/07/24 10:00 Diagnostic Test (Pha) 1 strip ACHS 10/07/24 11:30 10/17/24 11:15 1 STRIP Insulin Human Regular HS SC 10/07/24 22:00 10/16/24 22:00 2 UNITS Insulin Human Regular AC SC 10/07/24 11:30 10/17/24 12:12 2 UNITS Dextrose 50 ml UD PRN IV 10/07/24 10:30 Calcium Carbonate 500 mg Q4HPRN PRN PO 10/07/24 20:45 10/17/24 10:49 500 MG Pantoprazole Sodium 40 mg DAILY@1000 PO 10/08/24 10:00 10/17/24 09:32 40 MG Metoprolol Succinate 50 mg DAILY PO 10/10/24 10:00 10/17/24 09:35 50 MG Labetalol HCl 10 mg Q2HPRN PRN IV 10/09/24 13:15 10/10/24 15:12 10 MG Nifedipine 120 mg DAILY PO 10/11/24 10:00 10/17/24 10:40 120 MG Apixaban 10 mg BID PO 10/12/24 10:00 10/18/24 22:01 10/17/24 09:32 10 MG Apixaban 5 mg BID PO 10/19/24 10:00 Morphine Sulfate 1 mg Q8HPRN PRN IV 10/16/24 12:00 10/17/24 08:04 1 MG Gabapentin 300 mg TID PO 10/16/24 14:00 10/17/24 05:58 300 MG objective GENERAL: Alert and oriented x 3. No acute distress. EYES: PERRL, EOMI. Anicteric. HENT: Moist mucous membranes. LUNGS: Clear to auscultation bilaterally. CARDIOVASCULAR: Regular rate and rhythm. ABDOMEN: Soft, non-tender and non-distended. EXTREMITIES: No edema. NEUROLOGIC: No focal neurological deficits. SKIN: Warm, dry. laboratory and microbiology Laboratory Tests 10/15/24 09:02 Test 10/15/24 09:02 Range/Units Serum Glucose 143 H 74-106 mg/dL Problem List Rule out PE. Acute kidney injury. Metabolic acidosis. Lactic acidosis. Hypoxic respiratory failure. Possible sepsis. Complicated UTI. Elevated troponin. Leukocytosis. Uncontrolled diabetes. Assessment/Plan Continued all current supportive medical care. Morphine ad [place] for pain management. Eliquis. Metoprolol. Nifedipine. GI prophylactics. Additional plan as per the hospital course. Dietary Evaluation Review Comments: Nutrition Recommendation 1) CCHO 75gm + 2gm Na diet 2) Refer Founder And Chief Executive Officer for diabetes education Expected Outcomes/Goals: To meet >75% estimated needs Fu 3-5 days Plan discussed with: Patient PATSY LUZ MD Oct 17, 2024 12:24
[2024-10-18] VITALS (8 sets, daily range): BP systolic 124–128; BP diastolic 60–86; PULSE 74–94; RESP 16–18; TEMP 97.6–98.2; O2SAT 93–96
[2024-10-18] MEDS: LACTULOSE 20Gm/30ML SOLN PO ONE (08:46)
--- NOTE | 2024-10-18 11:45 | DVHPN2 ---
Reviewed: Care Plan, H&P, Labs, Medications Changes from previous H/P or p: No Changes General: Per HPI Eyes: No Pain, No Vision change, No Conjunctivae inflammation, No Eyelid inflammation, No Other, No Redness ENT: No Ear pain, No Ear discharge, No Nose pain, No Nose discharge, No Nose congestion, No Mouth pain, No Mouth swelling, No Throat pain, No Throat swelling, No Other Cardiovascular: No Chest Pain, No Palpitations, No Orthopnea, No Paroxysmal Noc. Dyspnea, No Edema, No Lt Headedness, No Other Respiratory: No Cough, No Dry, No Shortness of breath, No SOB with excertion, No Wheezing, No Hemoptysis, No Pleuritic Pain, No Sputum, No Other Gastrointestinal: No Nausea, No Vomiting, No Abdominal Pain, No Diarrhea, No Constipation, No Melena, No Hematochezia, No Other Genitourinary: No Dysuria, No Frequency, No Incontinence, No Hematuria, No Retention, No Other Musculoskeletal: No other, No neck pain, No shoulder pain, No arm pain, No back pain, No hand pain, No leg pain, No foot pain Skin: No Rash, No Lesions, No Jaundice, No Bruising, No Other Objective Vitals Vital Signs Date Time Temp Pulse Resp B/P (MAP) Pulse Ox O2 Delivery O2 Flow Rate FiO2 10/18/24 09:37 88 124/85 10/18/24 08:45 97.6 16 94 97.6 10/18/24 08:00 Room Air* 0 21 Intake/Output Intake and Output 10/18/24 07:00 Intake Total 1236 ml Output Total 1000 ml Balance 236 ml Intake Oral 1236 ml Output Urine Total 1000 ml General Appearance: Alert, Oriented X3, Cooperative HEENT: Atraumatic, PERRLA Lungs: Clear to auscultation, Normal air movement Cardiovascular: Normal S1, Normal S2 Musculoskeletal: Normal sensory function, Normal motor function Skin: Dry, Intact Psych/Mental Status: Mental status NL, Mood NL Medications Current Medications Medications Dose Ordered Sig/Gavin Route Start Time Stop Time Status Last Admin Dose Admin Ondansetron HCl 4 mg Q4HP PRN IV 10/07/24 10:00 10/09/24 17:53 4 MG Morphine Sulfate 2 mg Q30M PRN IV 10/07/24 10:00 Acetaminophen/ Hydrocodone Bitart 1 tab Q4HP PRN PO 10/07/24 10:00 10/18/24 09:36 1 TAB Docusate Sodium 100 mg BIDPRN PRN PO 10/07/24 10:00 10/17/24 18:11 100 MG Acetaminophen 650 mg Q6HP PRN PO 10/07/24 10:00 10/10/24 08:52 650 MG Nitroglycerin 0.4 mg Q5MINP PRN SL 10/07/24 10:00 Diagnostic Test (Pha) 1 strip ACHS 10/07/24 11:30 10/18/24 11:13 1 STRIP Insulin Human Regular HS SC 10/07/24 22:00 10/17/24 21:32 3 UNITS Insulin Human Regular AC SC 10/07/24 11:30 10/18/24 11:14 2 UNITS Dextrose 50 ml UD PRN IV 10/07/24 10:30 Calcium Carbonate 500 mg Q4HPRN PRN PO 10/07/24 20:45 10/18/24 09:35 500 MG Pantoprazole Sodium 40 mg DAILY@1000 PO 10/08/24 10:00 10/18/24 09:36 40 MG Metoprolol Succinate 50 mg DAILY PO 10/10/24 10:00 10/18/24 09:37 50 MG Labetalol HCl 10 mg Q2HPRN PRN IV 10/09/24 13:15 10/10/24 15:12 10 MG Nifedipine 120 mg DAILY PO 10/11/24 10:00 10/18/24 09:36 120 MG Apixaban 10 mg BID PO 10/12/24 10:00 10/18/24 22:01 10/18/24 09:36 10 MG Apixaban 5 mg BID PO 10/19/24 10:00 Morphine Sulfate 1 mg Q8HPRN PRN IV 10/16/24 12:00 10/18/24 02:15 1 MG Gabapentin 300 mg TID PO 10/16/24 14:00 10/18/24 05:33 300 MG Laboratory Results Laboratory Tests 10/15/24 09:02 Urinalysis Test 10/07/24 07:09 Urine Color Light-orange (Yellow) Urine Clarity Turbid (Clear) H Urine pH 5.5 (5.0-9.0) Urine Specific [place] 1.022 (1.001-1.035) Urine Protein 2+ (Negative) H Urine Ketones Negative (Negative) Urine Blood 1+ /uL (Negative) H Urine Nitrite Negative (Negative) Urine Bilirubin Negative (Negative) Urine Urobilinogen Normal mg/dL (Negative) Urine Leukocyte Esterase 1+ /uL (Negative) Urine RBC 11 /hpf (0 - 3) Urine WBC Clumps Present /hpf (None Seen) Urine Microscopic WBC 38 /HPF (0-3) H Urine Squamous Epithelial Cells Few /hpf (<5) Urine Bacteria Few /hpf (None Seen) H Urine Mucus Few (None Seen) Urine Glucose 1+ mg/dL (Normal) H Microbiology Microbiology Date/Time Source Procedure Growth Status 10/07/24 17:55 Nose MRSA Screen - Final Complete 10/07/24 07:40 Blood Blood Culture - Final Staphylococcus epidermidis Complete 10/07/24 07:09 Voided Urine Urine Culture - Final Complete Labs and/or images reviewed: Labs reviewed by me, Image(s) reviewed by me Assessment/Plan Assessment/Plan 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
--- NOTE | 2024-10-18 23:06 | DVHPN2 ---
Progress Note - Dictate Date Seen: Oct 18, 2024 Medical Necessity Reason Pt with a Central, PICC or Fol: No Subjective Patient was seen and evaluated in follow up. Patient is complaining of generalized discomfort. Patient is working well with PT. Per CM, patient was accepted to [facility], pending bed availability. Telemetry reviewed. vital signs Vital Sign Date Time Temp Pulse Resp B/P (MAP) Pulse Ox O2 Delivery O2 Flow Rate FiO2 10/18/24 12:03 88 16 124/85 10/18/24 08:45 97.6 94 97.6 10/18/24 08:00 Room Air* 0 21 Total Intake and Output 10/17/24 10/17/24 10/18/24 15:00 23:00 07:00 Intake Total 236 ml 600 ml 400 ml Output Total 650 ml 350 ml Balance 236 ml -50 ml 50 ml medications Current Medications Medications Dose Ordered Sig/Gavin Route Start Time Stop Time Status Last Admin Dose Admin Ondansetron HCl 4 mg Q4HP PRN IV 10/07/24 10:00 10/09/24 17:53 4 MG Morphine Sulfate 2 mg Q30M PRN IV 10/07/24 10:00 Acetaminophen/ Hydrocodone Bitart 1 tab Q4HP PRN PO 10/07/24 10:00 10/18/24 09:36 1 TAB Docusate Sodium 100 mg BIDPRN PRN PO 10/07/24 10:00 10/17/24 18:11 100 MG Acetaminophen 650 mg Q6HP PRN PO 10/07/24 10:00 10/10/24 08:52 650 MG Nitroglycerin 0.4 mg Q5MINP PRN SL 10/07/24 10:00 Diagnostic Test (Pha) 1 strip ACHS 10/07/24 11:30 10/18/24 11:13 1 STRIP Insulin Human Regular HS SC 10/07/24 22:00 10/17/24 21:32 3 UNITS Insulin Human Regular AC SC 10/07/24 11:30 10/18/24 11:14 2 UNITS Dextrose 50 ml UD PRN IV 10/07/24 10:30 Calcium Carbonate 500 mg Q4HPRN PRN PO 10/07/24 20:45 10/18/24 09:35 500 MG Pantoprazole Sodium 40 mg DAILY@1000 PO 10/08/24 10:00 10/18/24 09:36 40 MG Metoprolol Succinate 50 mg DAILY PO 10/10/24 10:00 10/18/24 09:37 50 MG Labetalol HCl 10 mg Q2HPRN PRN IV 10/09/24 13:15 10/10/24 15:12 10 MG Nifedipine 120 mg DAILY PO 10/11/24 10:00 10/18/24 09:36 120 MG Apixaban 10 mg BID PO 10/12/24 10:00 10/18/24 22:01 10/18/24 09:36 10 MG Apixaban 5 mg BID PO 10/19/24 10:00 Morphine Sulfate 1 mg Q8HPRN PRN IV 10/16/24 12:00 10/18/24 12:03 1 MG Gabapentin 300 mg TID PO 10/16/24 14:00 10/18/24 05:33 300 MG objective GENERAL: Alert and oriented x 3. No acute distress. EYES: PERRL, EOMI. Anicteric. HENT: Moist mucous membranes. LUNGS: Clear to auscultation bilaterally. CARDIOVASCULAR: Regular rate and rhythm. ABDOMEN: Soft, non-tender and non-distended. EXTREMITIES: No edema. NEUROLOGIC: No focal neurological deficits. SKIN: Warm, dry. laboratory and microbiology Laboratory Tests 10/15/24 09:02 Test 10/15/24 09:02 Range/Units Serum Glucose 143 H 74-106 mg/dL Problem List Rule out PE. Acute kidney injury. Metabolic acidosis. Lactic acidosis. Hypoxic respiratory failure. Possible sepsis. Complicated UTI. Elevated troponin. Leukocytosis. Uncontrolled diabetes. Assessment/Plan Continued all current supportive medical care. Morphine and [place] for pain management. Eliquis. Metoprolol. Nifedipine. GI prophylactics. Additional plan as per the hospital course. Dietary Evaluation Review Comments: Nutrition Recommendation 1) CCHO 75gm + 2gm Na diet 2) Refer Licensed Weigher for diabetes education Expected Outcomes/Goals: To meet >75% estimated needs Fu 3-5 days Plan discussed with: Patient PATSY LUZ MD Oct 18, 2024 12:34
[2024-10-19] VITALS (7 sets, daily range): BP systolic 109–135; BP diastolic 71–83; PULSE 66–87; RESP 16–18; TEMP 97–98.4; O2SAT 92–96
[2024-10-19] MEDS: APIXABAN 5 MG TAB PO SCH (08:32)
--- NOTE | 2024-10-19 11:25 | DVHPN2 ---
Reviewed: Care Plan, H&P, Labs, Medications Changes from previous H/P or p: No Changes General: Per HPI Eyes: No Pain, No Vision change, No Conjunctivae inflammation, No Eyelid inflammation, No Other, No Redness ENT: No Ear pain, No Ear discharge, No Nose pain, No Nose discharge, No Nose congestion, No Mouth pain, No Mouth swelling, No Throat pain, No Throat swelling, No Other Cardiovascular: No Chest Pain, No Palpitations, No Orthopnea, No Paroxysmal Noc. Dyspnea, No Edema, No Lt Headedness, No Other Respiratory: No Cough, No Dry, No Shortness of breath, No SOB with excertion, No Wheezing, No Hemoptysis, No Pleuritic Pain, No Sputum, No Other Gastrointestinal: No Nausea, No Vomiting, No Abdominal Pain, No Diarrhea, No Constipation, No Melena, No Hematochezia, No Other Genitourinary: No Dysuria, No Frequency, No Incontinence, No Hematuria, No Retention, No Other Musculoskeletal: No other, No neck pain, No shoulder pain, No arm pain, No back pain, No hand pain, No leg pain, No foot pain Skin: No Rash, No Lesions, No Jaundice, No Bruising, No Other Objective Vitals Vital Signs Date Time Temp Pulse Resp B/P (MAP) Pulse Ox O2 Delivery O2 Flow Rate FiO2 10/19/24 09:00 97.7 87 17 135/83 (100) 94 97.7 10/19/24 08:00 Room Air* 0 21 Intake/Output Intake and Output 10/19/24 07:00 Intake Total 650 ml Output Total 900 ml Balance -250 ml Intake Oral 650 ml Output Urine Total 900 ml General Appearance: Alert, Oriented X3, Cooperative HEENT: Atraumatic, PERRLA Lungs: Clear to auscultation, Normal air movement Cardiovascular: Normal S1, Normal S2 Musculoskeletal: Normal sensory function, Normal motor function Skin: Dry, Intact Psych/Mental Status: Mental status NL, Mood NL Medications Current Medications Medications Dose Ordered Sig/Gavin Route Start Time Stop Time Status Last Admin Dose Admin Ondansetron HCl 4 mg Q4HP PRN IV 10/07/24 10:00 10/09/24 17:53 4 MG Morphine Sulfate 2 mg Q30M PRN IV 10/07/24 10:00 Acetaminophen/ Hydrocodone Bitart 1 tab Q4HP PRN PO 10/07/24 10:00 10/19/24 10:05 1 TAB Docusate Sodium 100 mg BIDPRN PRN PO 10/07/24 10:00 10/17/24 18:11 100 MG Acetaminophen 650 mg Q6HP PRN PO 10/07/24 10:00 10/10/24 08:52 650 MG Nitroglycerin 0.4 mg Q5MINP PRN SL 10/07/24 10:00 Diagnostic Test (Pha) 1 strip ACHS 10/07/24 11:30 10/19/24 06:07 1 STRIP Insulin Human Regular HS SC 10/07/24 22:00 10/17/24 22:00 4 UNITS Insulin Human Regular AC SC 10/07/24 11:30 10/18/24 11:14 2 UNITS Dextrose 50 ml UD PRN IV 10/07/24 10:30 Calcium Carbonate 500 mg Q4HPRN PRN PO 10/07/24 20:45 10/19/24 08:37 500 MG Pantoprazole Sodium 40 mg DAILY@1000 PO 10/08/24 10:00 10/19/24 08:33 40 MG Metoprolol Succinate 50 mg DAILY PO 10/10/24 10:00 10/19/24 08:32 50 MG Labetalol HCl 10 mg Q2HPRN PRN IV 10/09/24 13:15 10/10/24 15:12 10 MG Nifedipine 120 mg DAILY PO 10/11/24 10:00 10/19/24 08:33 120 MG Apixaban 5 mg BID PO 10/19/24 10:00 10/19/24 08:32 5 MG Morphine Sulfate 1 mg Q8HPRN PRN IV 10/16/24 12:00 10/19/24 02:11 1 MG Gabapentin 300 mg TID PO 10/16/24 14:00 10/19/24 05:19 300 MG Laboratory Results Laboratory Tests 10/15/24 09:02 Urinalysis Test 10/07/24 07:09 Urine Color Light-orange (Yellow) Urine Clarity Turbid (Clear) H Urine pH 5.5 (5.0-9.0) Urine Specific [place] 1.022 (1.001-1.035) Urine Protein 2+ (Negative) H Urine Ketones Negative (Negative) Urine Blood 1+ /uL (Negative) H Urine Nitrite Negative (Negative) Urine Bilirubin Negative (Negative) Urine Urobilinogen Normal mg/dL (Negative) Urine Leukocyte Esterase 1+ /uL (Negative) Urine RBC 11 /hpf (0 - 3) Urine WBC Clumps Present /hpf (None Seen) Urine Microscopic WBC 38 /HPF (0-3) H Urine Squamous Epithelial Cells Few /hpf (<5) Urine Bacteria Few /hpf (None Seen) H Urine Mucus Few (None Seen) Urine Glucose 1+ mg/dL (Normal) H Microbiology Microbiology Date/Time Source Procedure Growth Status 10/07/24 17:55 Nose MRSA Screen - Final Complete 10/07/24 07:40 Blood Blood Culture - Final Staphylococcus epidermidis Complete 10/07/24 07:09 Voided Urine Urine Culture - Final Complete Labs and/or images reviewed: Labs reviewed by me, Image(s) reviewed by me Assessment/Plan Assessment/Plan Covering for [employer] CONSULTANT Dawson Garcia -leukocytosis, rule out sepsis -obesity -NSTEMI, type 2 secondary to pulmonary embolism -diabetes mellitus -peripheral neuropathy -anxiety disorder -syncope -cholelithiasis -acute hypoxic respiratory failure -saddle PE with cor pulmonale cloud services architect working on SNF placement Plan discussed with: Patient Date of Service: Oct 19, 2024 Billing Provider: JOSE J LEAL MD Common Visit Codes: [id number] INP/OBS CARE(HIGH) JOSE J LEAL MD Oct 19, 2024 11:25
--- NOTE | 2024-10-19 20:08 | DVHPN2 ---
Progress Note - Dictate Date Seen: Oct 19, 2024 Medical Necessity Reason Pt with a Central, PICC or Fol: No Subjective Patient was seen and evaluated in follow up. Patient stable on room air. Patient is complaining of generalized discomfort. BS are WNL. Telemetry reviewed. vital signs Vital Sign Date Time Temp Pulse Resp B/P (MAP) Pulse Ox O2 Delivery O2 Flow Rate FiO2 10/19/24 13:32 87 20 121/75 10/19/24 12:50 98.1 96 98.1 10/19/24 08:00 Room Air* 0 21 Total Intake and Output 10/18/24 10/18/24 10/19/24 15:00 23:00 07:00 Intake Total 250 ml 400 ml Output Total 600 ml 300 ml Balance -350 ml 100 ml medications Current Medications Medications Dose Ordered Sig/Gavin Route Start Time Stop Time Status Last Admin Dose Admin Ondansetron HCl 4 mg Q4HP PRN IV 10/07/24 10:00 10/09/24 17:53 4 MG Morphine Sulfate 2 mg Q30M PRN IV 10/07/24 10:00 Acetaminophen/ Hydrocodone Bitart 1 tab Q4HP PRN PO 10/07/24 10:00 10/19/24 10:05 1 TAB Docusate Sodium 100 mg BIDPRN PRN PO 10/07/24 10:00 10/17/24 18:11 100 MG Acetaminophen 650 mg Q6HP PRN PO 10/07/24 10:00 10/10/24 08:52 650 MG Nitroglycerin 0.4 mg Q5MINP PRN SL 10/07/24 10:00 Diagnostic Test (Pha) 1 strip ACHS 10/07/24 11:30 10/19/24 11:27 1 STRIP Insulin Human Regular HS SC 10/07/24 22:00 10/17/24 22:00 4 UNITS Insulin Human Regular AC SC 10/07/24 11:30 10/19/24 11:28 2 UNITS Dextrose 50 ml UD PRN IV 10/07/24 10:30 Calcium Carbonate 500 mg Q4HPRN PRN PO 10/07/24 20:45 10/19/24 13:37 500 MG Pantoprazole Sodium 40 mg DAILY@1000 PO 10/08/24 10:00 10/19/24 08:33 40 MG Metoprolol Succinate 50 mg DAILY PO 10/10/24 10:00 10/19/24 08:32 50 MG Labetalol HCl 10 mg Q2HPRN PRN IV 10/09/24 13:15 10/10/24 15:12 10 MG Nifedipine 120 mg DAILY PO 10/11/24 10:00 10/19/24 08:33 120 MG Apixaban 5 mg BID PO 10/19/24 10:00 10/19/24 08:32 5 MG Morphine Sulfate 1 mg Q8HPRN PRN IV 10/16/24 12:00 10/19/24 13:32 1 MG Gabapentin 300 mg TID PO 10/16/24 14:00 10/19/24 13:37 300 MG objective GENERAL: Alert and oriented x 3. No acute distress. EYES: PERRL, EOMI. Anicteric. HENT: Moist mucous membranes. LUNGS: Clear to auscultation bilaterally. CARDIOVASCULAR: Regular rate and rhythm. ABDOMEN: Soft, non-tender and non-distended. EXTREMITIES: No edema. NEUROLOGIC: No focal neurological deficits. SKIN: Warm, dry. laboratory and microbiology Laboratory Tests 10/15/24 09:02 Test 10/15/24 09:02 Range/Units Serum Glucose 143 H 74-106 mg/dL Problem List Rule out PE. Acute kidney injury. Metabolic acidosis. Lactic acidosis. Hypoxic respiratory failure. Possible sepsis. Complicated UTI. Elevated troponin. Leukocytosis. Uncontrolled diabetes. Assessment/Plan Continued all current supportive medical care. Morphine and [place] for pain management. Eliquis. Metoprolol. Nifedipine. GI prophylactics. Additional plan as per the hospital course. Dietary Evaluation Review Comments: Nutrition Recommendation 1) CCHO 75gm + 2gm Na diet 2) Refer Business System Consultant for diabetes education Expected Outcomes/Goals: To meet >75% estimated needs Fu 3-5 days Plan discussed with: Patient PATSY LUZ MD Oct 19, 2024 13:58
[2024-10-20] VITALS (8 sets, daily range): BP systolic 105–135; BP diastolic 72–86; PULSE 74–88; RESP 16–18; TEMP 96.1–98.3; O2SAT 91–98
--- NOTE | 2024-10-20 13:11 | DVHPN2 ---
Reviewed: Care Plan, H&P, Labs, Medications Changes from previous H/P or p: No Changes General: Per HPI Eyes: No Pain, No Vision change, No Conjunctivae inflammation, No Eyelid inflammation, No Other, No Redness ENT: No Ear pain, No Ear discharge, No Nose pain, No Nose discharge, No Nose congestion, No Mouth pain, No Mouth swelling, No Throat pain, No Throat swelling, No Other Cardiovascular: No Chest Pain, No Palpitations, No Orthopnea, No Paroxysmal Noc. Dyspnea, No Edema, No Lt Headedness, No Other Respiratory: No Cough, No Dry, No Shortness of breath, No SOB with excertion, No Wheezing, No Hemoptysis, No Pleuritic Pain, No Sputum, No Other Gastrointestinal: No Nausea, No Vomiting, No Abdominal Pain, No Diarrhea, No Constipation, No Melena, No Hematochezia, No Other Genitourinary: No Dysuria, No Frequency, No Incontinence, No Hematuria, No Retention, No Other Musculoskeletal: No other, No neck pain, No shoulder pain, No arm pain, No back pain, No hand pain, No leg pain, No foot pain Skin: No Rash, No Lesions, No Jaundice, No Bruising, No Other Objective Vitals Vital Signs Date Time Temp Pulse Resp B/P (MAP) Pulse Ox O2 Delivery O2 Flow Rate FiO2 10/20/24 08:57 96.1 77 16 135/86 (102) 91 96.1 10/20/24 08:00 Room Air* 0 21 Intake/Output Intake and Output 10/20/24 07:00 Intake Total 1200 ml Output Total 1200 ml Balance 0 ml Intake Oral 1200 ml Output Urine Total 1200 ml General Appearance: Alert, Oriented X3, Cooperative HEENT: Atraumatic, PERRLA Lungs: Clear to auscultation, Normal air movement Cardiovascular: Normal S1, Normal S2 Musculoskeletal: Normal sensory function, Normal motor function Skin: Dry, Intact Psych/Mental Status: Mental status NL, Mood NL Medications Current Medications Medications Dose Ordered Sig/Gavin Route Start Time Stop Time Status Last Admin Dose Admin Ondansetron HCl 4 mg Q4HP PRN IV 10/07/24 10:00 10/09/24 17:53 4 MG Morphine Sulfate 2 mg Q30M PRN IV 10/07/24 10:00 Acetaminophen/ Hydrocodone Bitart 1 tab Q4HP PRN PO 10/07/24 10:00 10/20/24 08:42 1 TAB Docusate Sodium 100 mg BIDPRN PRN PO 10/07/24 10:00 10/17/24 18:11 100 MG Acetaminophen 650 mg Q6HP PRN PO 10/07/24 10:00 10/10/24 08:52 650 MG Nitroglycerin 0.4 mg Q5MINP PRN SL 10/07/24 10:00 Diagnostic Test (Pha) 1 strip ACHS 10/07/24 11:30 10/20/24 11:52 1 STRIP Insulin Human Regular HS SC 10/07/24 22:00 10/19/24 22:03 2 UNITS Insulin Human Regular AC SC 10/07/24 11:30 10/20/24 11:53 2 UNITS Dextrose 50 ml UD PRN IV 10/07/24 10:30 Calcium Carbonate 500 mg Q4HPRN PRN PO 10/07/24 20:45 10/20/24 08:42 500 MG Pantoprazole Sodium 40 mg DAILY@1000 PO 10/08/24 10:00 10/20/24 08:42 40 MG Metoprolol Succinate 50 mg DAILY PO 10/10/24 10:00 10/20/24 08:42 50 MG Labetalol HCl 10 mg Q2HPRN PRN IV 10/09/24 13:15 10/10/24 15:12 10 MG Nifedipine 120 mg DAILY PO 10/11/24 10:00 10/20/24 08:41 120 MG Apixaban 5 mg BID PO 10/19/24 10:00 10/20/24 08:42 5 MG Morphine Sulfate 1 mg Q8HPRN PRN IV 10/16/24 12:00 10/19/24 23:54 1 MG Gabapentin 300 mg TID PO 10/16/24 14:00 10/20/24 05:44 300 MG Laboratory Results Laboratory Tests 10/15/24 09:02 Urinalysis Test 10/07/24 07:09 Urine Color Light-orange (Yellow) Urine Clarity Turbid (Clear) H Urine pH 5.5 (5.0-9.0) Urine Specific [place] 1.022 (1.001-1.035) Urine Protein 2+ (Negative) H Urine Ketones Negative (Negative) Urine Blood 1+ /uL (Negative) H Urine Nitrite Negative (Negative) Urine Bilirubin Negative (Negative) Urine Urobilinogen Normal mg/dL (Negative) Urine Leukocyte Esterase 1+ /uL (Negative) Urine RBC 11 /hpf (0 - 3) Urine WBC Clumps Present /hpf (None Seen) Urine Microscopic WBC 38 /HPF (0-3) H Urine Squamous Epithelial Cells Few /hpf (<5) Urine Bacteria Few /hpf (None Seen) H Urine Mucus Few (None Seen) Urine Glucose 1+ mg/dL (Normal) H Microbiology Microbiology Date/Time Source Procedure Growth Status 10/07/24 17:55 Nose MRSA Screen - Final Complete 10/07/24 07:40 Blood Blood Culture - Final Staphylococcus epidermidis Complete 10/07/24 07:09 Voided Urine Urine Culture - Final Complete Labs and/or images reviewed: Labs reviewed by me, Image(s) reviewed by me Assessment/Plan Assessment/Plan Covering for STUDENT SERVICES DIRECTOR Dawson Garcia -leukocytosis, rule out sepsis -obesity -NSTEMI, type 2 secondary to pulmonary embolism -diabetes mellitus -peripheral neuropathy -anxiety disorder -syncope -cholelithiasis -acute hypoxic respiratory failure -saddle PE with cor pulmonale director of volunteer services working on SNF placement, no bed available yet. Plan discussed with: Patient Date of Service: Oct 20, 2024 Billing Provider: JOSE J LEAL MD Common Visit Codes: [id number] INP/OBS CARE(HIGH) JOSE J LEAL MD Oct 20, 2024 13:10
--- NOTE | 2024-10-20 21:51 | DVHPN2 ---
Progress Note - Dictate Date Seen: Oct 20, 2024 Medical Necessity Reason Pt with a Central, PICC or Fol: No Subjective Patient was seen and evaluated in follow up. No overnight events. technical services consultant working on SNF placement, no bed available yet. Telemetry reviewed. vital signs Vital Sign Date Time Temp Pulse Resp B/P (MAP) Pulse Ox O2 Delivery O2 Flow Rate FiO2 10/20/24 21:00 98.3 87 18 119/81 (94) 93 98.3 10/20/24 08:00 Room Air* 0 21 Total Intake and Output 10/19/24 10/19/24 10/20/24 15:00 23:00 07:00 Intake Total 800 ml 400 ml Output Total 400 ml 800 ml Balance 400 ml -400 ml medications Current Medications Medications Dose Ordered Sig/Gavin Route Start Time Stop Time Status Last Admin Dose Admin Ondansetron HCl 4 mg Q4HP PRN IV 10/07/24 10:00 10/09/24 17:53 4 MG Morphine Sulfate 2 mg Q30M PRN IV 10/07/24 10:00 Acetaminophen/ Hydrocodone Bitart 1 tab Q4HP PRN PO 10/07/24 10:00 10/20/24 17:50 1 TAB Docusate Sodium 100 mg BIDPRN PRN PO 10/07/24 10:00 10/17/24 18:11 100 MG Acetaminophen 650 mg Q6HP PRN PO 10/07/24 10:00 10/10/24 08:52 650 MG Nitroglycerin 0.4 mg Q5MINP PRN SL 10/07/24 10:00 Diagnostic Test (Pha) 1 strip ACHS 10/07/24 11:30 10/20/24 21:01 1 STRIP Insulin Human Regular HS SC 10/07/24 22:00 10/19/24 22:03 2 UNITS Insulin Human Regular AC SC 10/07/24 11:30 10/20/24 17:42 2 UNITS Dextrose 50 ml UD PRN IV 10/07/24 10:30 Calcium Carbonate 500 mg Q4HPRN PRN PO 10/07/24 20:45 10/20/24 17:50 500 MG Pantoprazole Sodium 40 mg DAILY@1000 PO 10/08/24 10:00 10/20/24 08:42 40 MG Metoprolol Succinate 50 mg DAILY PO 10/10/24 10:00 10/20/24 08:42 50 MG Labetalol HCl 10 mg Q2HPRN PRN IV 10/09/24 13:15 10/10/24 15:12 10 MG Nifedipine 120 mg DAILY PO 10/11/24 10:00 10/20/24 08:41 120 MG Apixaban 5 mg BID PO 10/19/24 10:00 10/20/24 21:00 5 MG Morphine Sulfate 1 mg Q8HPRN PRN IV 10/16/24 12:00 10/19/24 23:54 1 MG Gabapentin 300 mg TID PO 10/16/24 14:00 10/20/24 21:01 300 MG objective GENERAL: Alert and oriented x 3. No acute distress. EYES: PERRL, EOMI. Anicteric. HENT: Moist mucous membranes. LUNGS: Clear to auscultation bilaterally. CARDIOVASCULAR: Regular rate and rhythm. ABDOMEN: Soft, non-tender and non-distended. EXTREMITIES: No edema. NEUROLOGIC: No focal neurological deficits. SKIN: Warm, dry. laboratory and microbiology Laboratory Tests 10/15/24 09:02 Test 10/15/24 09:02 Range/Units Serum Glucose 143 H 74-106 mg/dL Problem List Rule out PE. Acute kidney injury. Metabolic acidosis. Lactic acidosis. Hypoxic respiratory failure. Possible sepsis. Complicated UTI. Elevated troponin. Leukocytosis. Uncontrolled diabetes. Assessment/Plan Continued all current supportive medical care. Morphine and [place] for pain management. Eliquis. Metoprolol. Nifedipine. GI prophylactics. Additional plan as per the hospital course. Dietary Evaluation Review Comments: Nutrition Recommendation 1) CCHO 75gm + 2gm Na diet 2) Refer Wire Straightening Machine Operator for diabetes education Expected Outcomes/Goals: To meet >75% estimated needs Fu 3-5 days Plan discussed with: Patient PATSY LUZ MD Oct 20, 2024 21:51
[2024-10-21] VITALS (7 sets, daily range): BP systolic 121–146; BP diastolic 81–99; PULSE 80–98; RESP 16–20; TEMP 97.9–98.1; O2SAT 93–98
--- NOTE | 2024-10-21 11:35 | DVHPN2 ---
Reviewed: Care Plan, H&P, Labs, Medications Changes from previous H/P or p: No Changes General: Per HPI Eyes: No Pain, No Vision change, No Conjunctivae inflammation, No Eyelid inflammation, No Other, No Redness ENT: No Ear pain, No Ear discharge, No Nose pain, No Nose discharge, No Nose congestion, No Mouth pain, No Mouth swelling, No Throat pain, No Throat swelling, No Other Cardiovascular: No Chest Pain, No Palpitations, No Orthopnea, No Paroxysmal Noc. Dyspnea, No Edema, No Lt Headedness, No Other Respiratory: No Cough, No Dry, No Shortness of breath, No SOB with excertion, No Wheezing, No Hemoptysis, No Pleuritic Pain, No Sputum, No Other Gastrointestinal: No Nausea, No Vomiting, No Abdominal Pain, No Diarrhea, No Constipation, No Melena, No Hematochezia, No Other Genitourinary: No Dysuria, No Frequency, No Incontinence, No Hematuria, No Retention, No Other Musculoskeletal: No other, No neck pain, No shoulder pain, No arm pain, No back pain, No hand pain, No leg pain, No foot pain Skin: No Rash, No Lesions, No Jaundice, No Bruising, No Other Objective Vitals Vital Signs Date Time Temp Pulse Resp B/P (MAP) Pulse Ox O2 Delivery O2 Flow Rate FiO2 10/21/24 09:00 97.9 84 18 137/91 (106) 96 97.9 10/21/24 08:00 Room Air* 0 21 Intake/Output Intake and Output 10/21/24 07:00 Intake Total 1885 ml Output Total 2725 ml Balance -840 ml Intake Oral 1885 ml Output Urine Total 2725 ml General Appearance: Alert, Oriented X3, Cooperative HEENT: Atraumatic, PERRLA Lungs: Clear to auscultation, Normal air movement Cardiovascular: Normal S1, Normal S2 Musculoskeletal: Normal sensory function, Normal motor function Skin: Dry, Intact Psych/Mental Status: Mental status NL, Mood NL Medications Current Medications Medications Dose Ordered Sig/Gavin Route Start Time Stop Time Status Last Admin Dose Admin Ondansetron HCl 4 mg Q4HP PRN IV 10/07/24 10:00 10/09/24 17:53 4 MG Morphine Sulfate 2 mg Q30M PRN IV 10/07/24 10:00 Acetaminophen/ Hydrocodone Bitart 1 tab Q4HP PRN PO 10/07/24 10:00 10/21/24 02:56 1 TAB Docusate Sodium 100 mg BIDPRN PRN PO 10/07/24 10:00 10/17/24 18:11 100 MG Acetaminophen 650 mg Q6HP PRN PO 10/07/24 10:00 10/10/24 08:52 650 MG Nitroglycerin 0.4 mg Q5MINP PRN SL 10/07/24 10:00 Diagnostic Test (Pha) 1 strip ACHS 10/07/24 11:30 10/21/24 06:05 1 STRIP Insulin Human Regular HS SC 10/07/24 22:00 10/19/24 22:03 2 UNITS Insulin Human Regular AC SC 10/07/24 11:30 10/20/24 17:42 2 UNITS Dextrose 50 ml UD PRN IV 10/07/24 10:30 Calcium Carbonate 500 mg Q4HPRN PRN PO 10/07/24 20:45 10/21/24 08:27 500 MG Pantoprazole Sodium 40 mg DAILY@1000 PO 10/08/24 10:00 10/21/24 08:26 40 MG Metoprolol Succinate 50 mg DAILY PO 10/10/24 10:00 10/21/24 08:27 50 MG Labetalol HCl 10 mg Q2HPRN PRN IV 10/09/24 13:15 10/10/24 15:12 10 MG Nifedipine 120 mg DAILY PO 10/11/24 10:00 10/21/24 08:26 120 MG Apixaban 5 mg BID PO 10/19/24 10:00 10/21/24 08:27 5 MG Morphine Sulfate 1 mg Q8HPRN PRN IV 10/16/24 12:00 10/21/24 08:28 1 MG Gabapentin 300 mg TID PO 10/16/24 14:00 10/21/24 06:04 300 MG Laboratory Results Laboratory Tests 10/15/24 09:02 Urinalysis Test 10/07/24 07:09 Urine Color Light-orange (Yellow) Urine Clarity Turbid (Clear) H Urine pH 5.5 (5.0-9.0) Urine Specific [place] 1.022 (1.001-1.035) Urine Protein 2+ (Negative) H Urine Ketones Negative (Negative) Urine Blood 1+ /uL (Negative) H Urine Nitrite Negative (Negative) Urine Bilirubin Negative (Negative) Urine Urobilinogen Normal mg/dL (Negative) Urine Leukocyte Esterase 1+ /uL (Negative) Urine RBC 11 /hpf (0 - 3) Urine WBC Clumps Present /hpf (None Seen) Urine Microscopic WBC 38 /HPF (0-3) H Urine Squamous Epithelial Cells Few /hpf (<5) Urine Bacteria Few /hpf (None Seen) H Urine Mucus Few (None Seen) Urine Glucose 1+ mg/dL (Normal) H Microbiology Microbiology Date/Time Source Procedure Growth Status 10/07/24 17:55 Nose MRSA Screen - Final Complete 10/07/24 07:40 Blood Blood Culture - Final Staphylococcus epidermidis Complete 10/07/24 07:09 Voided Urine Urine Culture - Final Complete Labs and/or images reviewed: Labs reviewed by me, Image(s) reviewed by me Assessment/Plan Assessment/Plan 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 MEDICAL TRANSCRIPTIONIST Dawson Garcia Possible sepsis Saddle PE with cor pulmonale on LS -NSTEMI, type 2 secondary to pulmonary embolism -diabetes mellitus -peripheral neuropathy -anxiety disorder -syncope -cholelithiasis -acute hypoxic respiratory failure environmental services director working on SNF placement, no bed available yet at [place] Plan discussed with: Patient My Orders Orders - JOSE J LEAL MD Procedure Category Date Status Time * Radiator Cleaner CONS 10/20/24 Transmitted Consult Date of Service: Oct 21, 2024 Billing Provider: JOSE J LEAL MD Common Visit Codes: [id number] INP/OBS CARE(HIGH) JOSE J LEAL MD Oct 21, 2024 11:35
[2024-10-21] MEDS: LACTULOSE 20Gm/30ML SOLN PO ONE (12:39)
--- NOTE | 2024-10-21 22:49 | DVHPN2 ---
Progress Note - Dictate Date Seen: Oct 21, 2024 Medical Necessity Reason Pt with a Central, PICC or Fol: No Subjective Patient was seen and evaluated in follow up. No overnight events. The patient is resting in bed. He does not voice any complaints. student services coordinator working on placement, no bed available [facility] at [facility]. Telemetry reviewed. vital signs Vital Sign Date Time Temp Pulse Resp B/P (MAP) Pulse Ox O2 Delivery O2 Flow Rate FiO2 10/21/24 22:10 88 20 129/83 10/21/24 21:00 97.9 93 97.9 10/21/24 08:00 Room Air* 0 21 Total Intake and Output 10/20/24 10/20/24 10/21/24 15:00 23:00 07:00 Intake Total 725 ml 1160 ml Output Total 200 ml 1025 ml 1500 ml Balance -200 ml -300 ml -340 ml medications Current Medications Medications Dose Ordered Sig/Gavin Route Start Time Stop Time Status Last Admin Dose Admin Ondansetron HCl 4 mg Q4HP PRN IV 10/07/24 10:00 10/09/24 17:53 4 MG Morphine Sulfate 2 mg Q30M PRN IV 10/07/24 10:00 Acetaminophen/ Hydrocodone Bitart 1 tab Q4HP PRN PO 10/07/24 10:00 10/21/24 17:10 1 TAB Docusate Sodium 100 mg BIDPRN PRN PO 10/07/24 10:00 10/17/24 18:11 100 MG Acetaminophen 650 mg Q6HP PRN PO 10/07/24 10:00 10/10/24 08:52 650 MG Nitroglycerin 0.4 mg Q5MINP PRN SL 10/07/24 10:00 Diagnostic Test (Pha) 1 strip ACHS 10/07/24 11:30 10/21/24 21:36 1 STRIP Insulin Human Regular HS SC 10/07/24 22:00 10/21/24 21:39 2 UNITS Insulin Human Regular AC SC 10/07/24 11:30 10/21/24 17:11 2 UNITS Dextrose 50 ml UD PRN IV 10/07/24 10:30 Calcium Carbonate 500 mg Q4HPRN PRN PO 10/07/24 20:45 10/21/24 22:06 500 MG Pantoprazole Sodium 40 mg DAILY@1000 PO 10/08/24 10:00 10/21/24 08:26 40 MG Metoprolol Succinate 50 mg DAILY PO 10/10/24 10:00 10/21/24 08:27 50 MG Labetalol HCl 10 mg Q2HPRN PRN IV 10/09/24 13:15 10/10/24 15:12 10 MG Nifedipine 120 mg DAILY PO 10/11/24 10:00 10/21/24 08:26 120 MG Apixaban 5 mg BID PO 10/19/24 10:00 10/21/24 21:44 5 MG Morphine Sulfate 1 mg Q8HPRN PRN IV 10/16/24 12:00 10/21/24 22:10 1 MG Gabapentin 300 mg TID PO 10/16/24 14:00 10/21/24 21:44 300 MG objective GENERAL: Alert and oriented x 3. No acute distress. EYES: PERRL, EOMI. Anicteric. HENT: Moist mucous membranes. LUNGS: Clear to auscultation bilaterally. CARDIOVASCULAR: Regular rate and rhythm. ABDOMEN: Soft, non-tender and non-distended. EXTREMITIES: No edema. NEUROLOGIC: No focal neurological deficits. SKIN: Warm, dry. laboratory and microbiology Laboratory Tests 10/15/24 09:02 Test 10/15/24 09:02 Range/Units Serum Glucose 143 H 74-106 mg/dL Problem List Rule out PE. Acute kidney injury. Metabolic acidosis. Lactic acidosis. Hypoxic respiratory failure. Possible sepsis. Complicated UTI. Elevated troponin. Leukocytosis. Uncontrolled diabetes. Assessment/Plan Continued all current supportive medical care. Morphine and [place] for pain management. Eliquis. IV Labetalol for SBP >150. Metoprolol. Nifedipine. GI prophylactics. Additional plan as per the hospital course. Dietary Evaluation Review Comments: Nutrition Recommendation 1) CCHO 75gm + 2gm Na diet 2) Refer Director Of Nuclear Medicine for diabetes education Expected Outcomes/Goals: To meet >75% estimated needs Fu 3-5 days Plan discussed with: Patient PATSY LUZ MD Oct 21, 2024 22:49
[2024-10-22 01:00] VITALS: BP 124/84; PULSE 91; RESP 20; TEMP 98; O2SAT 93
[2024-10-22 05:00] VITALS: BP 127/89; PULSE 84; RESP 20; TEMP 98.2; O2SAT 97
[2024-10-22 08:00] VITALS: PULSE 91
[2024-10-22 08:33] VITALS: BP 137/76; PULSE 80; RESP 16; TEMP 97.8; O2SAT 98
--- NOTE | 2024-10-22 11:04 | DVHPN2 ---
Reviewed: Care Plan, H&P, Labs, Medications Changes from previous H/P or p: No Changes General: Per HPI Eyes: No Pain, No Vision change, No Conjunctivae inflammation, No Eyelid inflammation, No Other, No Redness ENT: No Ear pain, No Ear discharge, No Nose pain, No Nose discharge, No Nose congestion, No Mouth pain, No Mouth swelling, No Throat pain, No Throat swelling, No Other Cardiovascular: No Chest Pain, No Palpitations, No Orthopnea, No Paroxysmal Noc. Dyspnea, No Edema, No Lt Headedness, No Other Respiratory: No Cough, No Dry, No Shortness of breath, No SOB with excertion, No Wheezing, No Hemoptysis, No Pleuritic Pain, No Sputum, No Other Gastrointestinal: No Nausea, No Vomiting, No Abdominal Pain, No Diarrhea, No Constipation, No Melena, No Hematochezia, No Other Genitourinary: No Dysuria, No Frequency, No Incontinence, No Hematuria, No Retention, No Other Musculoskeletal: No other, No neck pain, No shoulder pain, No arm pain, No back pain, No hand pain, No leg pain, No foot pain Skin: No Rash, No Lesions, No Jaundice, No Bruising, No Other Objective Vitals Vital Signs Date Time Temp Pulse Resp B/P (MAP) Pulse Ox O2 Delivery O2 Flow Rate FiO2 10/22/24 09:01 80 16 133/76 10/22/24 08:33 97.8 98 97.8 10/22/24 08:00 Room Air* 0 21 Intake/Output Intake and Output 10/22/24 07:00 Intake Total 1700 ml Output Total 1000 ml Balance 700 ml Intake Oral 1700 ml Output Urine Total 1000 ml General Appearance: Alert, Oriented X3, Cooperative HEENT: Atraumatic, PERRLA Lungs: Clear to auscultation, Normal air movement Cardiovascular: Normal S1, Normal S2 Musculoskeletal: Normal sensory function, Normal motor function Skin: Dry, Intact Psych/Mental Status: Mental status NL, Mood NL Medications Current Medications Medications Dose Ordered Sig/Gavin Route Start Time Stop Time Status Last Admin Dose Admin Ondansetron HCl 4 mg Q4HP PRN IV 10/07/24 10:00 10/09/24 17:53 4 MG Morphine Sulfate 2 mg Q30M PRN IV 10/07/24 10:00 Acetaminophen/ Hydrocodone Bitart 1 tab Q4HP PRN PO 10/07/24 10:00 10/22/24 06:11 1 TAB Docusate Sodium 100 mg BIDPRN PRN PO 10/07/24 10:00 10/17/24 18:11 100 MG Acetaminophen 650 mg Q6HP PRN PO 10/07/24 10:00 10/10/24 08:52 650 MG Nitroglycerin 0.4 mg Q5MINP PRN SL 10/07/24 10:00 Diagnostic Test (Pha) 1 strip ACHS 10/07/24 11:30 10/22/24 06:06 1 STRIP Insulin Human Regular HS SC 10/07/24 22:00 10/21/24 21:39 2 UNITS Insulin Human Regular AC SC 10/07/24 11:30 10/21/24 17:11 2 UNITS Dextrose 50 ml UD PRN IV 10/07/24 10:30 Calcium Carbonate 500 mg Q4HPRN PRN PO 10/07/24 20:45 10/22/24 08:59 500 MG Pantoprazole Sodium 40 mg DAILY@1000 PO 10/08/24 10:00 10/22/24 08:59 40 MG Metoprolol Succinate 50 mg DAILY PO 10/10/24 10:00 10/22/24 08:59 50 MG Labetalol HCl 10 mg Q2HPRN PRN IV 10/09/24 13:15 10/10/24 15:12 10 MG Nifedipine 120 mg DAILY PO 10/11/24 10:00 10/22/24 09:00 120 MG Apixaban 5 mg BID PO 10/19/24 10:00 10/22/24 08:59 5 MG Morphine Sulfate 1 mg Q8HPRN PRN IV 10/16/24 12:00 10/22/24 09:01 1 MG Gabapentin 300 mg TID PO 10/16/24 14:00 10/22/24 06:07 300 MG Laboratory Results Laboratory Tests 10/15/24 09:02 Urinalysis Test 10/07/24 07:09 Urine Color Light-orange (Yellow) Urine Clarity Turbid (Clear) H Urine pH 5.5 (5.0-9.0) Urine Specific [place] 1.022 (1.001-1.035) Urine Protein 2+ (Negative) H Urine Ketones Negative (Negative) Urine Blood 1+ /uL (Negative) H Urine Nitrite Negative (Negative) Urine Bilirubin Negative (Negative) Urine Urobilinogen Normal mg/dL (Negative) Urine Leukocyte Esterase 1+ /uL (Negative) Urine RBC 11 /hpf (0 - 3) Urine WBC Clumps Present /hpf (None Seen) Urine Microscopic WBC 38 /HPF (0-3) H Urine Squamous Epithelial Cells Few /hpf (<5) Urine Bacteria Few /hpf (None Seen) H Urine Mucus Few (None Seen) Urine Glucose 1+ mg/dL (Normal) H Microbiology Microbiology Date/Time Source Procedure Growth Status 10/07/24 17:55 Nose MRSA Screen - Final Complete 10/07/24 07:40 Blood Blood Culture - Final Staphylococcus epidermidis Complete 10/07/24 07:09 Voided Urine Urine Culture - Final Complete Labs and/or images reviewed: Labs reviewed by me, Image(s) reviewed by me Assessment/Plan Assessment/Plan 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 Possible sepsis [place] PE with cor pulmonale on LS -NSTEMI, type 2 secondary to pulmonary embolism -diabetes mellitus -peripheral neuropathy -anxiety disorder -syncope -cholelithiasis -acute hypoxic respiratory failure 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
[2024-10-22 12:45] VITALS: BP 129/83; PULSE 88; RESP 20; TEMP 98; O2SAT 98
--- NOTE | 2024-10-22 15:02 | DVHDS2 ---
Discharge Summary Date of Admission Oct 07, 2024 at 09:41 Date of Discharge: Oct 22, 2024 Admitting Diagnosis Shortness of breath Wounds: None Labs/Diagnostic Data: Laboratory Results Test 10/22/24 06:01 10/15/24 09:02 10/12/24 07:09 10/10/24 15:15 POC Glucose 119 mg/dl (70-106) White Blood Count 11.9 10^3/uL (4.4-10.8) Red Blood Count 5.25 10^6/uL (4.5-5.90) Hemoglobin 15.6 g/dL (13.5-17.5) Hematocrit 46.0 % (41.0-53.0) Mean Corpuscular Volume 87.6 fL (80.0-100.0) Mean Corpuscular Hemoglobin 29.7 pg (28.0-32.0) Mean Corpuscular Hemoglobin Concent 33.9 g/dL (32.0-36.0) Red Cell Distribution Width 13.3 % (11.8-14.3) Platelet Count 163 10^3/uL (140-450) Mean Platelet Volume 11.4 fL (6.9-10.8) Neutrophils (%) (Auto) 75.1 % (37.0-80.0) Lymphocytes (%) (Auto) 16.0 % (10.0-50.0) Monocytes (%) (Auto) 7.6 % (0.0-12.0) Eosinophils (%) (Auto) 1.0 % (0.0-7.0) Basophils (%) (Auto) 0.3 % (0.0-2.0) Neutrophils # (Auto) 8.9 10 ^3/uL (1.6-8.6) Lymphocytes # (Auto) 1.9 10 ^3/uL (0.4-5.4) Monocytes # (Auto) 0.9 10 ^3/uL (0-1.3) Eosinophils # (Auto) 0.1 10 ^3/uL (0-0.8) Basophils # (Auto) 0 10 ^3/uL (0-0.2) Nucleated Red Blood Cells 0.0 % Sodium Level 137 mmol/L (136-145) Potassium Level 3.7 mmol/L (3.5-5.1) Chloride Level 101 mmol/L (98-107) Carbon Dioxide Level 28 mmol/L (20-31) Anion Gap 8 (5-15) Blood Urea Nitrogen 11 mg/dL (9-23) Creatinine 0.54 mg/dL (0.700-1.30) Glomerular Filtration Rate Calc 124 mL/min (>90) BUN/Creatinine Ratio 20.4 (10.0-20.0) Serum Glucose 143 mg/dL (74-106) Calcium Level 9.6 mg/dL (8.7-10.4) Prothrombin Time 13.8 sec (9.3-11.8) Prothrombin Time INR 1.34 (0.9-1.15) Activated Partial Thromboplast Time 103.5 SEC (24.5-34.5) Lactic Acid Level 0.9 mmol/L (0.4-2.0) Test 10/08/24 11:46 10/08/24 05:09 10/08/24 05:04 10/07/24 07:47 D-Dimer, Quantitative 10.62 mg/L FEU (0.0-0.49) Troponin I High Sensitivity 381 ng/L (</=54) Total Bilirubin 0.4 mg/dL (0.2-1.0) Aspartate Amino Transferase (AST) 19 U/L (13-40) Alanine Aminotransferase (ALT) 24 U/L (7-40) Alkaline Phosphatase 63 U/L (46-116) Total Protein 6.1 g/dL (5.7-8.2) Albumin 3.7 g/dL (3.2-4.8) Influenza Type A Antigen Negative (Negative) Influenza Type B Antigen Negative (Negative) SARS-CoV-2 Antigen (Rapid) Negative (NEGATIVE) Test 10/07/24 07:24 10/07/24 07:09 10/07/24 06:17 Blood Gas Specimen Type Arterial Blood Gas Sample Site Right radial Blood Gas Patient Temperature 37.0 Arterial Blood Date Drawn [id number] Arterial Blood pH 7.195 (7.350-7.450) Arterial Blood Partial Pressure CO2 31.5 mmHg (35.0-48.0) Arterial Blood Partial Pressure O2 127.6 mmHg (83.0-108.0) Arterial Blood HCO3 11.9 mmol/L (21.0-28.0) Arterial Blood Oxygen Saturation 97.8 % (94.0-98.0) Arterial Blood Base Excess -14.9 mmol/L (-2.0-3.0) Arterial Blood Oxyhemoglobin 96.9 % (94.0-98.0) Arterial Blood Carboxyhemoglobin 0.4 % (0.5-1.5) Arterial Blood Methemoglobin 0.5 % (0.0-1.5) Dominic Test Yes Blood Gas Total Hemoglobin 15.90 g/dL (13.5-17.5) Blood Gas Set Respiration Rate 18.0 Blood Gas Modality Mask - bipap FiO2 % 50.0 Blood Gas EPAP 8 Blood Gas IPAP 16 Blood Gas Critical Value Read Back yes Blood Gas Notified Whom Blood Gas Notified Time [id number] Blood Gas Notified By [employer] material inspector rosario Urine Color Light-orange (Yellow) Urine Clarity Turbid (Clear) Urine pH 5.5 (5.0-9.0) Urine Specific [place] 1.022 (1.001-1.035) Urine Protein 2+ (Negative) Urine Ketones Negative (Negative) Urine Blood 1+ /uL (Negative) Urine Nitrite Negative (Negative) Urine Bilirubin Negative (Negative) Urine Urobilinogen Normal mg/dL (Negative) Urine Leukocyte Esterase 1+ /uL (Negative) Urine RBC 11 /hpf (0 - 3) Urine WBC Clumps Present /hpf (None Seen) Urine Microscopic WBC 38 /HPF (0-3) Urine Squamous Epithelial Cells Few /hpf (<5) Urine Bacteria Few /hpf (None Seen) Urine Mucus Few (None Seen) Urine Glucose 1+ mg/dL (Normal) B-Type Natriuretic Peptide 3.07 pg/mL (0-100) Beta-Hydroxybutyric Acid 0.566 mmol/L (< 0.4) Thyroid Stimulating Hormone (TSH) 3.41 uIU/mL (0.55-4.78) Other Laboratory Tests 10/15/24 09:02 Brief Hx & Hospital Course: 49-year-old male with a history of diabetes anxiety with recently discharged from the hospital for antibiotics for UTI came back complaining of chest pain and shortness of breaths found to have non ST-elevation [place] with a slightly elevated troponin type 2 secondary to left and right bundle branch block Also had PE and DVT treated with the Lovenox and transitioned to Eliquis seen by Cardiology Dr. Renteria being discharged to care home facility for rehab medication management and physical therapy Consults/Reason for consult Cardiology Dr. Janes Renteria Operations or Procedures None Condition at Discharge: Fair Final Diagnosis/Problems List Complicated Cystitis DVT PE leukocytosis, ruled out sepsis -obesity -NSTEMI, questionable type II. Noted left and right bundle-branch block. Troponins trending down -diabetes mellitus -peripheral neuropathy -anxiety disorder -syncope -cholelithiasis Discharge Disposition: Long Term Facility Discharge Instruct/Medications Diet: Consistent carbohydrate Activity: No Restrictions, As Tolerated Follow Up/Referral: Follow up with the intermediate Medications: see list Scheduled Ciprofloxacin Hcl (Ciprofloxacin Hcl), 1 TAB PO BID Doxycycline (Monohydrate) (Doxycycline), 100 MG PO BID Gabapentin (Gabapentin), 1 CAP PO TID, (Reported) Hydrocodone-Acetaminophen (Hydrocodone Bitartrate/AC 5-325 mg), 1 TAB PO Q8HR Metoprolol Succinate (Toprol Xl), 1 TAB PO DAILY Nifedipine (Nifedipine Er), 1 TAB PO DAILY 39 (Time taken for discharge summary 39 minutes) Discharge Statement: "Patient was advised to return to the ER or call 911 if any headaches, dizziness, shortness of breath, chest pain, abdominal pain, bleeding, fevers, or worsening of medical condition. Patient was counseled about treatment plan, medications, possible side effects, patientverbalized understanding. All questions were answered to the best of my ability. This discharge took greater then 30 minutes in planning, reviewing documentation, counseling the patient, and discussing with other team members." ASSESSMENT ASSESSMENT Hospital Course Improved Assessment Complicated Cystitis DVT PE -leukocytosis, ruled out sepsis -obesity -NSTEMI, questionable type II. Noted left and right bundle-branch block. Troponins trending down -diabetes mellitus -peripheral neuropathy -anxiety disorder -syncope -cholelithiasis Date of Service: Oct 22, 2024 Billing Provider: JOSE J LEAL MD Common Visit Codes: [id number] DISCH DAY >30min JOSE J LEAL MD Oct 22, 2024 15:02
[2024-10-22 17:00] VITALS: BP 131/83; PULSE 83; RESP 16; TEMP 97.8; O2SAT 99
--- NOTE | 2024-10-23 01:28 | DVHPN2 ---
Progress Note - Dictate Date Seen: Oct 22, 2024 Medical Necessity Reason Pt with a Central, PICC or Fol: No Subjective Patient was seen and evaluated in follow up. No overnight events. Patient was accepted to [facility], pending bed assignment for discharge. BS are WNL. Telemetry reviewed. vital signs Vital Sign Date Time Temp Pulse Resp B/P (MAP) Pulse Ox O2 Delivery O2 Flow Rate FiO2 10/22/24 12:45 98.0 88 20 129/83 (98) 98 98.0 10/22/24 08:00 Room Air* 0 21 Total Intake and Output 10/21/24 10/21/24 10/22/24 14:59 22:59 06:59 Intake Total 800 ml 500 ml 400 ml Output Total 300 ml 450 ml 250 ml Balance 500 ml 50 ml 150 ml medications Current Medications Medications Dose Ordered Sig/Gavin Route Start Time Stop Time Status Last Admin Dose Admin Ondansetron HCl 4 mg Q4HP PRN IV 10/07/24 10:00 10/09/24 17:53 4 MG Morphine Sulfate 2 mg Q30M PRN IV 10/07/24 10:00 Acetaminophen/ Hydrocodone Bitart 1 tab Q4HP PRN PO 10/07/24 10:00 10/22/24 11:48 1 TAB Docusate Sodium 100 mg BIDPRN PRN PO 10/07/24 10:00 10/17/24 18:11 100 MG Acetaminophen 650 mg Q6HP PRN PO 10/07/24 10:00 10/10/24 08:52 650 MG Nitroglycerin 0.4 mg Q5MINP PRN SL 10/07/24 10:00 Diagnostic Test (Pha) 1 strip ACHS 10/07/24 11:30 10/22/24 11:12 1 STRIP Insulin Human Regular HS SC 10/07/24 22:00 10/21/24 21:39 2 UNITS Insulin Human Regular AC SC 10/07/24 11:30 10/22/24 11:21 2 UNITS Dextrose 50 ml UD PRN IV 10/07/24 10:30 Calcium Carbonate 500 mg Q4HPRN PRN PO 10/07/24 20:45 10/22/24 08:59 500 MG Pantoprazole Sodium 40 mg DAILY@1000 PO 10/08/24 10:00 10/22/24 08:59 40 MG Metoprolol Succinate 50 mg DAILY PO 10/10/24 10:00 10/22/24 08:59 50 MG Labetalol HCl 10 mg Q2HPRN PRN IV 10/09/24 13:15 10/10/24 15:12 10 MG Nifedipine 120 mg DAILY PO 10/11/24 10:00 10/22/24 09:00 120 MG Apixaban 5 mg BID PO 10/19/24 10:00 10/22/24 08:59 5 MG Morphine Sulfate 1 mg Q8HPRN PRN IV 10/16/24 12:00 10/22/24 09:01 1 MG Gabapentin 300 mg TID PO 10/16/24 14:00 10/22/24 13:55 300 MG objective GENERAL: Alert and oriented x 3. No acute distress. EYES: PERRL, EOMI. Anicteric. HENT: Moist mucous membranes. LUNGS: Clear to auscultation bilaterally. CARDIOVASCULAR: Regular rate and rhythm. ABDOMEN: Soft, non-tender and non-distended. EXTREMITIES: No edema. NEUROLOGIC: No focal neurological deficits. SKIN: Warm, dry. laboratory and microbiology Laboratory Tests 10/15/24 09:02 Test 10/15/24 09:02 Range/Units Serum Glucose 143 H 74-106 mg/dL Problem List Rule out PE. Acute kidney injury. Metabolic acidosis. Lactic acidosis. Hypoxic respiratory failure. Possible sepsis. Complicated UTI. Elevated troponin. Leukocytosis. Uncontrolled diabetes. Assessment/Plan Continued all current supportive medical care. [place] for pain management. Eliquis. Metoprolol. Nifedipine. GI prophylactics. Additional plan as per the hospital course. Dietary Evaluation Review Comments: Nutrition Recommendation 1) CCHO 75gm + 2gm Na diet 2) Refer [facility] for diabetes education Expected Outcomes/Goals: To meet >75% estimated needs Fu 3-5 days Plan discussed with: Patient PATSY LUZ MD Oct 22, 2024 14:52
== END 2024-10-22 18:27 | DRG 469 ==
LOC: EDBD 06:00 → ER 06:00 → OVERFLOW 09:41 → ER 09:54 → DOU 18:04 → TELE-WESTW 10-08 20:35 → WEST WING 10-09 23:10 → TELE-WESTW 10-11 22:37
PROVIDERS: ADMIT Family Medicine; ATTEND Family Medicine
PROC: 5A09357 Assistance with Respiratory Ventilation, Less than 24 Consecutive Hours, Continuous Positive Airway Pressure (ICD-10-PCS; principal; 2024-10-07)
DX: N17.0 Acute kidney failure with tubular necrosis (principal); I26.02 Saddle embolus of pulmonary artery with acute cor pulmonale; J96.01 Acute respiratory failure with hypoxia; R65.11 Systemic inflammatory response syndrome (SIRS) of non-infectious origin with acute organ dysfunction; I82.431 Acute embolism and thrombosis of right popliteal vein; E11.42 Type 2 diabetes mellitus with diabetic polyneuropathy; D72.829 Elevated white blood cell count, unspecified; E87.20 Acidosis, unspecified; I21.A1 Myocardial infarction type 2; E66.9 Obesity, unspecified; F41.9 Anxiety disorder, unspecified; K80.20 Calculus of gallbladder without cholecystitis without obstruction; N30.90 Cystitis, unspecified without hematuria; I10 Essential (primary) hypertension; Z79.899 Other long term (current) drug therapy; Z83.3 Family history of diabetes mellitus; Z82.49 Family history of ischemic heart disease and other diseases of the circulatory system; Z68.42 Body mass index [BMI] 45.0-49.9, adult; I45.2 Bifascicular block
CPT/HCPCS: 36415; 36600; 71045; 71275; 76705; 76775; 80048; 80053; 81001; 82010; 82805; 82962; 83605; 83880; 84443; 84484; 85025; 85379; 85610; 85730; 87040; 87077; 87081; 87086; 87186; 87426; 87804; 93005; 93306; 93970; 94660; 96365; 96375; 97110; 97116; 97163; 97530; 99291; G0378; J0692; J1815; J2405